=== PATIENT | male | born 1940 | race Caucasian/White ===

== ENCOUNTER → 2024-02-20 12:14 | Outpatient (REF) | payer MEDICARE, OTHER, SELFPAY ==
[2024-02-20 12:42] LABS: % Basophils 0.5 % (0-2); % Immature Granulocytes 0.3 % (0-0.5); % Lymphocytes 18.3 % (20.5-51.1); % Monocytes 7.7 % (1.7-9.3); % Neutrophils 70.2 % (42.2-75.2); Absolute Eosinophils 0.3 10^3/uL (0-0.7); Absolute Lymphocytes 1.6 10^3/uL (1.2-3.4); Absolute Monocytes 0.7 10^3/uL (0.1-0.6); Absolute Neutrophils 6.2 10^3/uL (1.4-6.5); Hematocrit 36.6 % (39.0-52.0); Hemoglobin 12.3 g/dL (13.0-18.0); Mean Corp Hgb Conc. 33.6 g/dL (33.0-37.0); Mean Corpuscular Hgb 32.8 pg (27.0-31.0); Mean Corpuscular Volume 97.6 fL (80.0-94.0); Nucleated Red Blood Cells % 0 % (-); Platelet Count 110 10^3/uL (130-400); Red Blood Cell Count 3.75 10^6/uL (4.70-6.10); Red Cell Dist. Width 12.3 % (11.5-14.5); White Blood Cell Count 8.8 10^3/uL (4.8-10.8)
[2024-02-20 12:52] LABS: Blood Urea Nitrogen 19 mg/dl (9-20); Calcium 8.9 mg/dl (8.4-10.2); Carbon Dioxide 26 mmol/L (22-30); Chloride 103 mmol/L (98-107); Glucose 203 mg/dl (70-99); Sodium 137 mmol/L (135-145); eGFR > 60.00
== END ==
LOC: OLABN 12:14
PROVIDERS: ATTENDING PHYSICIAN Student in an Organized Health Care Education/Training Program
DX: K62.5 Hemorrhage of anus and rectum (principal)
CPT/HCPCS: 36415; 80048; 85025

== ENCOUNTER → 2024-02-23 10:53 | Outpatient (REF) | payer MEDICARE, OTHER, SELFPAY ==
[2024-02-23 11:23] LABS: HDL Cholesterol 47 mg/dl; LDL Cholesterol, Calculated 47 mg/dl; Total Cholesterol 111 mg/dl (50-199); Triglyceride 87 mg/dl (10-149); Very Low Density Lipoprotein 17 mg/dl (0-30)
== END ==
LOC: OLABN 10:53
PROVIDERS: ATTENDING PHYSICIAN Student in an Organized Health Care Education/Training Program
DX: E78.5 Hyperlipidemia, unspecified (principal)
CPT/HCPCS: 36415; 80061

== ENCOUNTER 2024-02-25 11:20 | Emergency (ER) | payer MEDICARE, OTHER, SELFPAY ==
[2024-02-25] VITALS (8 sets, daily range): BP systolic 109–169; BP diastolic 55–88; BMI 41.4
[2024-02-25 11:45] LABS: % Basophils 0.3 % (0-2); % Eosinophils 2.8 % (0-6); % Immature Granulocytes 0.3 % (0-0.5); % Lymphocytes 27.7 % (20.5-51.1); % Monocytes 8.4 % (1.7-9.3); % Neutrophils 60.5 % (42.2-75.2); Absolute Eosinophils 0.2 10^3/uL (0-0.7); Absolute Lymphocytes 1.9 10^3/uL (1.2-3.4); Absolute Monocytes 0.6 10^3/uL (0.1-0.6); Absolute Neutrophils 4.1 10^3/uL (1.4-6.5); Hematocrit 38.6 % (39.0-52.0); Hemoglobin 13.3 g/dL (13.0-18.0); Mean Corp Hgb Conc. 34.5 g/dL (33.0-37.0); Mean Corpuscular Hgb 32.7 pg (27.0-31.0); Mean Corpuscular Volume 94.8 fL (80.0-94.0); Mean Platelet Volume 9.8 fL (7.4-10.4); Nucleated Red Blood Cells % 0 % (-); Platelet Count 131 10^3/uL (130-400); Red Blood Cell Count 4.07 10^6/uL (4.70-6.10); Red Cell Dist. Width 12.1 % (11.5-14.5); White Blood Cell Count 6.8 10^3/uL (4.8-10.8)
[2024-02-25 11:49] LABS: INR 1.35; PT 16.8 Sec (11.4-14.6)
[2024-02-25 11:50] LABS: APTT 34.5 Sec (23.4-35.0)
[2024-02-25 11:58] LABS: Troponin I < 0.012 ng/ml
[2024-02-25 12:04] LABS: Blood Urea Nitrogen 26 mg/dl (9-20); Calcium 9.1 mg/dl (8.4-10.2); Carbon Dioxide 27 mmol/L (22-30); Chloride 103 mmol/L (98-107); Estimated Creatinine Clearance 74 ml/min; Glucose 185 mg/dl (70-99); Sodium 139 mmol/L (135-145); eGFR > 60.00
[2024-02-25] MEDS: DUONEB 3 ML INH (13:12)
--- NOTE | 2024-02-25 13:13 | ED.GENMED ---
History of Present Illness
General
Chief Complaint: Chest Pain
Time Seen by Provider: 02/25/24 12:14
History of Present Illness
History of Present Illness:
83-year-old male with history of paroxysmal A-fib, hyperlipidemia, CAD, diabetes, hypertension, hyperlipidemia presenting to the emergency department for chest pain. Patient reports left-sided chest pain, feels in the left back. Notes that he woke
up around 2 AM with it. At the nursing facility where he resides he was given aspirin and nitroglycerin. Notes that his symptoms however improved after deep breathing exercises. Denies cough or fever. He notes that he currently does not have
pain. Denies abdominal pain or GI symptoms. Patient is very hard of hearing, relatively difficult historian. No additional symptoms obtained at this time.
Past History
Past History
ED Past Medical History: CAD, HTN, Hypercholesterolemia, IDDM and Other (Arthritis, Bilateral hearing aids. Vertigo)
ED Past Surgical History: Cardiac (Stents)
Patient has exhibited threatening behavior?: No
PSI?: No
Social History
Tobacco: Former smoker
Alcohol: Occasional
Personal:
Living: with family
Employment: Retired
Family History
Family History: Other (Mother with thyroid cancer, father with throat cancer)
Phy Exam
Physical Exam
Physical Exam:
General: Well-appearing, no clinical signs of dehydration, nontoxic and in no acute distress
HEENT: protecting airway
Neck: appears supple
CV: Normal heart rate, regular rhythm, no evidence of cyanosis
Resp: No accessory muscle use, no increased work of breathing, mild rhonchorous lung sounds bilaterally
Abd: Soft and non-distended, no tenderness to palpation
Extremities: No deformities, no swelling, no erythema. Chronic skin findings to the left lower extremity
Neuro: alert, no focal neurologic deficit
: deferred
Rectal: deferred
Psych: Normal affect
Skin: Intact
Scores
Heart Score for Chest Pain Patients
STEMI patient?: No
History: Slightly or Non-Suspicious
ECG: Normal
Age: >/= 65 years
Risk Factors: 1 or 2 Risk Factors
Troponin: </= Normal Limit
Heart Score for Chest Pain Patients: 3
Heart Score Risk: 2.5% MACE over next 6 weeks
Course
Orders/Labs/Results
Orders:
Orders
02/25/24 11:23
Electrocardiogram (*1) Urgent
Reason for Study: Chest Pain
02/25/24 11:24
EKG- Treatment ONCE
02/25/24 11:25
Basic Metabolic Panel Urgent
Complete Blood Count/With Diff Urgent
PT/INR [Prothrombin Time] Urgent
PTT Urgent
Troponin I Urgent
02/25/24 12:26
CR Chest - 2 Views Urgent
Comment:
Reason For Exam: SOB
02/25/24 12:27
Ipratropium/Albuterol Sulfate [Duoneb] 3 ml INH R NOW ONE
Abnormal Lab Results
02/25/24
11:25
RBC 4.07 L 10^6/uL
(4.70-6.10)
Hct 38.6 L %
(39.0-52.0)
MCV 94.8 H fL
(80.0-94.0)
MCH 32.7 H pg
(27.0-31.0)
PT 16.8 H Sec
(11.4-14.6)
BUN 26 H mg/dl
(9-20)
Glucose 185 H mg/dl
(70-99)
02/25/24 11:25
02/25/24 11:25
Vital Signs
Initial and Last Documented VS:
Initial Vital Signs
Pulse Resp Pulse Ox
74 20 98
02/25/24 11:25 02/25/24 11:25 02/25/24 11:25
Last Documented Vital Signs
Temp Pulse Resp BP Pulse Ox
97.8 F 73 18 144/77 98
02/25/24 11:33 02/25/24 12:40 02/25/24 12:40 02/25/24 13:14 02/25/24 13:15
MDM/Problems Addressed
MDM/Problems Addressed:
83-year-old male with history of paroxysmal A-fib, hyperlipidemia, CAD, diabetes, hypertension, hyperlipidemia presenting for left-sided chest pain. Vital signs on arrival are normal.
On exam patient is resting comfortably, no acute distress or discomfort. EKG obtained on arrival, nonischemic. Patient notes pain improved with deep breathing exercises. For this reason lower suspicion for cardiac etiology. Patient does have
some rhonchorous breath sounds, so we will obtain chest x-ray imaging. Will administer DuoNeb. Will continue to monitor and reassess for improvement.
14:50 -patient's labs are unremarkable. Chest x-ray without acute cardiopulmonary disease. Patient notes that he is not presently having any symptoms. He notes chronically a pain to the left side of his chest, made better with deep inspiration.
At this time feel that he is stable for discharge, however with close interval follow-up with his doctor. Return precautions discussed and patient verbalized understanding
*EKG
Interpreted by ED Provider?: Yes
EKG Intrepretation Date: 02/25/24
EKG Intrepretation Time: 13:16
Interpretation: normal
Comparison EKG: no changes (07/27/22)
Heart Rate: 74
Rate: normal
Rhythm: sinus
Olla: normal axis
Interval: normal interval
QRS Pattern: normal QRS
Ischemia: no ischemia
*Critical Care Note
Total Time (30-74mins, 75-104mins- exclusive of procedures): Not Applicable
ED Attending Note
-
Portions of this chart may have been created with voice recognition software.� Occasional wrong word or��sound alike� substitutions may have occurred due to the inherent limitations of voice recognition software.
Discharge Plan
Departure
Patient Disposition: Home (Routine Discharge)
Date of Disposition: 02/25/24
Time of Disposition: 14:59
Patient with high blood pressure during this ER visit?: No
Condition: Good
Discharge Problem:
Chest wall pain
Instructions: Chest pain - Discharge instructions
Prescriptions:
No Action
tamsulosin 0.4 MG capsule
0.4 mg PO BID@0830,1829
atorvastatin 40 MG tablet
40 mg PO DAILY@1829
metoprolol succinate 25 MG tablet extended release 24 hr
25 mg PO DAILY
quetiapine 25 mg Tablet
12.5 mg PO DAILY
lidocaine 4 % Adhesive Patch,Medicated
1 patch TOPICAL DAILY
Rx Instructions:
apply to left lateral anterior knee
trazodone 50 mg tablet
25 mg PO DAILY@1829
magnesium hydroxide [Milk of Magnesia] 400 mg/5 mL Suspension
30 ml PO HS PRN (Reason: lack of bm)
insulin aspart U-100 100 unit/mL Solution
0 - 12 sliding scale dose SC AC
Rx Instructions:
71-150 = 0 units, 151-200= 2 units, 201-250= 4 units, 251-300= 6 units, 301-350= 8 units, 351-400= 10 units, >400= 12 units call MD
insulin aspart U-100 100 unit/mL Solution
32 unit SC BID@829,2029
bisacodyl [Dulcolax (bisacodyl)] 10 mg Suppository
10 mg [place] DAILY PRN (Reason: when no bm/mom ineffective)
escitalopram oxalate 20 mg tablet
20 mg PO DAILY
diclofenac sodium 1 % gel
2 g TOPICAL Q8H
Rx Instructions:
0000, 0800,1600. apply to left anterior lateral knee areas
cholecalciferol (vitamin D3) [Vitamin D3] 125 mcg (5,000 unit) Tablet
1,500 mcg PO MONTHLY
Rx Instructions:
3rd fri
acetaminophen 325 MG tablet
650 mg PO Q4H PRN (Reason: mild pain/temp> 100.4F)
famotidine 20 MG tablet
20 mg PO BID@
glimepiride 4 MG tablet
4 mg PO DAILY
Rx Instructions:
HOLD UNTIL PATIENT'S APPETITE IS BACK
albuterol sulfate 1 PUFF HFA aerosol inhaler
2 puff inhalation R Q4 PRN (Reason: sob)
Eliquis 5 MG tablet
5 mg PO BID@
pantoprazole 40 mg Tablet,Delayed Release (Dr/Ec)
40 mg PO HS Qty: 0 0RF
miconazole nitrate [Miconazorb AF] 2 % Powder
1 applic topical BID Qty: 0 0RF
prednisone 10 mg Tablet
See Rx Instructions .ROUTE .COMPLEX Qty: 30 0RF
Rx Instructions:
Take By Mouth:
30 mg daily x2 days,
20 mg daily x2 days, 10 mg daily x2 days.
Referrals:
Jeffry Yang DO [Family Provider] -
Activity Restrictions/Additional Instructions:
You were seen in the emergency department for chest pain
You were found to have normal laboratory analysis and chest x-ray imaging.
Please follow-up closely with your primary care physician.
Return to the emergency department for any worsening of your symptoms, or any development of chest pain, difficulty breathing, abdominal pain with persistent vomiting and inability to tolerate food or liquid by mouth (concern for dehydration),
weakness, headache or confusion, fever greater than 100.4, or any additional symptoms that are concerning to you.
Thank you for choosing [facility].
Interventions
Interventions:
*Risk Screen - Suicide Last Done: 02/25/24 11:33
*General Assessment Last Done: 02/25/24 11:33
*Neglect/Abuse Screening Last Done: 02/25/24 11:33
*ED COVID-19 Vaccine History Last Done: 02/25/24 11:41
ED- Cardiac Assessment Last Done: 02/25/24 11:42
Discharge Date and Time
Print Language: CENTRAL AFRICAN
== END 2024-02-25 18:15 | disposition home or self-care (01) ==
LOC: EMR 11:20
PROVIDERS: EMERGENCY PHYSICIAN Student in an Organized Health Care Education/Training Program; FAMILY PHYSICIAN Student in an Organized Health Care Education/Training Program
DX: R07.89 Other chest pain (principal); E78.00 Pure hypercholesterolemia, unspecified; E11.9 Type 2 diabetes mellitus without complications; I10 Essential (primary) hypertension; I25.10 Atherosclerotic heart disease of native coronary artery without angina pectoris; I48.0 Paroxysmal atrial fibrillation; Z79.4 Long term (current) use of insulin; Z87.891 Personal history of nicotine dependence; Z95.5 Presence of coronary angioplasty implant and graft
CPT/HCPCS: 94640; 99285; 71046; 80048; 84484; 85025; 85610; 85730; 93005

== ENCOUNTER → 2024-02-27 11:24 | Outpatient (REF) | payer MEDICARE, OTHER, SELFPAY ==
[2024-02-27 12:24] LABS: Urine Albumin Negative (Neg - Trace); Urine Bilirubin Negative (Negative); Urine Character Clear (Clear); Urine Color Yellow; Urine Glucose 3+ (Negative); Urine Ketone Negative (Negative); Urine Leukocyte Negative (Negative); Urine Nitrite Negative (Negative); Urine Occult Blood Negative (Negative); Urine Specific Gravity 1.015 (<1.030); Urine Urobilinogen Negative (Neg - 1+)
== END ==
LOC: OLABN 11:24
PROVIDERS: ATTENDING PHYSICIAN Student in an Organized Health Care Education/Training Program
DX: M62.81 Muscle weakness (generalized) (principal); R50.9 Fever, unspecified
CPT/HCPCS: 81003; 87086

== ENCOUNTER 2024-05-04 15:28 | Emergency (ER) | payer MEDICARE, OTHER, SELFPAY ==
[2024-05-04 16:00] VITALS: BP 126/81
[2024-05-04 16:06] VITALS: BP 126/81
[2024-05-04 16:13] LABS: % Basophils 0.3 % (0-2); % Lymphocytes 15.1 % (20.5-51.1); % Neutrophils 74.6 % (42.2-75.2); Absolute Eosinophils 0.1 10^3/uL (0-0.7); Absolute Immature Granulocytes 0.1 10^3/uL (0-0.05); Absolute Lymphocytes 1.4 10^3/uL (1.2-3.4); Absolute Monocytes 0.7 10^3/uL (0.1-0.6); Absolute Neutrophils 6.8 10^3/uL (1.4-6.5); Hematocrit 39.9 % (39.0-52.0); Hemoglobin 13.3 g/dL (13.0-18.0); Mean Corp Hgb Conc. 33.3 g/dL (33.0-37.0); Mean Corpuscular Hgb 32.2 pg (27.0-31.0); Mean Corpuscular Volume 96.6 fL (80.0-94.0); Mean Platelet Volume 10.8 fL (7.4-10.4); Nucleated Red Blood Cells % 0 % (-); Platelet Count 129 10^3/uL (130-400); Red Blood Cell Count 4.13 10^6/uL (4.70-6.10); Red Cell Dist. Width 12.4 % (11.5-14.5); White Blood Cell Count 9.2 10^3/uL (4.8-10.8)
--- NOTE | 2024-05-04 17:23 | ED.GENMED ---
History of Present Illness
General
Chief Complaint: Change Level of Consciousness
Time Seen by Provider: 05/04/24 15:31
History of Present Illness
History of Present Illness:
83-year-old male presents to the emergency department from [facility] due to a brief period of unresponsiveness that occurred earlier today. Staff had difficulty arousing him for several minutes. Upon arousing him they administered oxygen and
Gave him orange juice. No documented hypoglycemia was noted. On arrival the patient is confused about why he is here, states he feels fine. He is alert and oriented x 3 with significant hearing deficit at baseline.
Past History
Past History
ED Past Medical History: CAD, HTN, Hypercholesterolemia, IDDM and Other (Arthritis, Bilateral hearing aids. Vertigo)
ED Past Surgical History: Cardiac (Stents)
Patient has exhibited threatening behavior?: No
PSI?: No
Social History
Tobacco: Former smoker
Alcohol: Occasional
Personal:
Living: with family
Employment: Retired
Family History
Family History: Other (Mother with thyroid cancer, father with throat cancer)
Review of Systems
Review of Systems
Allergies reviewed?: Yes
All Other Systems: ROS reviewed and negative except as documented in HPI and ROS
Phy Exam
Physical Exam
Physical Exam:
GEN: Well appearing, NAD, WDWN
HEENT: Oral mucosa moist, no scleral icterus
Cardiac: Regular rate and rhythm, no murmurs
Lung: No respiratory distress, no tachypnea, lungs clear to auscultation bilaterally
MSK: No gross deformity or injuries
Skin: Good color, no pallor or jaundice, no rashes
Neuro: AO x3, moves all extremities freely
Psych: Calm, cooperative
Course
Orders/Labs/Results
Orders:
Orders
05/04/24 15:40
CR Chest - 2 Views Urgent
Comment:
Reason For Exam: brief now resolved unresponsiveness
05/04/24 15:54
Complete Blood Count/With Diff Urgent
05/04/24 17:07
Comprehensive Metabolic Panel Urgent
Abnormal Lab Results
05/04/24 05/04/24 05/04/24
15:54 17:07 19:12
RBC 4.13 L 10^6/uL
(4.70-6.10)
MCV 96.6 H fL
(80.0-94.0)
MCH 32.2 H pg
(27.0-31.0)
Plt Count 129 L 10^3/uL
(130-400)
MPV 10.8 H fL
(7.4-10.4)
Abs Immat Gran (auto) 0.1 H 10^3/uL
(0-0.05)
Absolute Neuts (auto) 6.8 H 10^3/uL
(1.4-6.5)
Absolute Monos (auto) 0.7 H 10^3/uL
(0.1-0.6)
Immature Gran % 1.0 H %
(0-0.5)
Lymphocytes % 15.1 L %
(20.5-51.1)
Carbon Dioxide 32 H mmol/L
(22-30)
BUN 29 H mg/dl
(9-20)
POC Glucose 192 H mg/dl
(70-99)
05/04/24 15:54
05/04/24 17:07
Vital Signs
Initial and Last Documented VS:
Initial Vital Signs
Pulse Resp BP Pulse Ox
63 19 126/81 98
05/04/24 16:00 05/04/24 16:00 05/04/24 16:00 05/04/24 16:00
Last Documented Vital Signs
Temp Pulse Resp BP Pulse Ox
97.4 F 60 15 126/81 98
05/04/24 16:06 05/04/24 18:00 05/04/24 17:30 05/04/24 16:06 05/04/24 18:00
MDM/Problems Addressed
MDM/Problems Addressed:
Labs reassuring in the emergency department, patient remained at his normal mental status throughout emergency department stay. Unclear etiology, device interrogated through [employer] and no cardiac events were noted today to explain his brief
unresponsiveness.
*Critical Care Note
Total Time (30-74mins, 75-104mins- exclusive of procedures): Not Applicable
ED Attending Note
-
Portions of this chart may have been created with voice recognition software.� Occasional wrong word or��sound alike� substitutions may have occurred due to the inherent limitations of voice recognition software.
Discharge Plan
Departure
Patient Disposition: Home (Routine Discharge)
Date of Disposition: 05/04/24
Time of Disposition: 17:36
Patient with high blood pressure during this ER visit?: No
Discharge Problem:
Episode of unresponsiveness
Instructions: Syncope (Fainting) (DC)
Prescriptions:
No Action
tamsulosin 0.4 MG capsule
0.8 mg PO QPM
atorvastatin 40 MG tablet
40 mg PO DAILY@1830
metoprolol succinate 25 MG tablet extended release 24 hr
25 mg PO DAILY
magnesium hydroxide [Milk of Magnesia] 400 mg/5 mL Suspension
30 ml PO HSPRN PRN (Reason: lack of bm)
bisacodyl [Dulcolax (bisacodyl)] 10 mg Suppository
10 mg [place] DAILYPRN PRN (Reason: when no bm/mom ineffective)
acetaminophen 325 MG tablet
650 mg PO Q4HPRN PRN (Reason: mild pain/temp> 100.4F)
famotidine 20 MG tablet
20 mg PO HS
albuterol sulfate 1 PUFF HFA aerosol inhaler
2 puff inhalation R Q4HPRN PRN (Reason: sob)
Eliquis 5 MG tablet
5 mg PO BID@0830,1830
metformin 500 mg Tablet
500 mg PO BID
glimepiride 2 mg Tablet
2 mg PO DAILY
escitalopram oxalate 10 mg Tablet
10 mg PO DAILY
cholecalciferol (vitamin D3) 250 mcg (10,000 unit) Tablet
1,500 mcg PO QMONTH
Rx Instructions:
3rd wed
Fiasp FlexTouch U-100 Insulin 100 unit/mL (3 mL) Insulin Pen
26 unit SC DAILY
Fiasp FlexTouch U-100 Insulin 100 unit/mL (3 mL) Insulin Pen
1 sliding scale dose SC TID
Rx Instructions:
151-200=2u,201-250=4u,251-300=6u,301-350=8u,351-400=10u,>400=12u
Fiasp FlexTouch U-100 Insulin 100 unit/mL (3 mL) Insulin Pen
22 unit SC HS
Referrals:
Jeffry Yang DO [Family Provider] -
Activity Restrictions/Additional Instructions:
The cause of Mr Gray's episode is not clear
Please return to the ER with any further concerns
Interventions
Interventions:
*Risk Screen - Suicide Last Done: 05/04/24 16:12
*General Assessment Last Done: 05/04/24 16:12
*Neglect/Abuse Screening Last Done: 05/04/24 16:12
*ED COVID-19 Vaccine History Last Done: 05/04/24 16:12
*Nursing Disposition Last Done: 05/04/24 19:42
ED- Cardiac Assessment Last Done: 05/04/24 17:30
ED- Neurological Assessment Last Done: 05/04/24 17:28
ED-Psychological Assessment Last Done: 05/04/24 17:29
ED- Pulmonary Assessment Last Done: 05/04/24 17:28
Discharge Date and Time
Discharge Date/Time: 05/04/24 19:43
Print Language: LITHUANIAN
[2024-05-04 17:32] LABS: ALT (SGPT) 14 U/L (0-50); AST (SGOT) 19 U/L (17-59); Albumin 3.7 g/dl (3.5-5.0); Alkaline Phosphatase 81 U/L (38-126); Blood Urea Nitrogen 29 mg/dl (9-20); Calcium 9.5 mg/dl (8.4-10.2); Carbon Dioxide 32 mmol/L (22-30); Chloride 98 mmol/L (98-107); Glucose 81 mg/dl (70-99); Potassium 4.4 mmol/L (3.5-5.1); Sodium 136 mmol/L (135-145); Total Bilirubin 0.6 mg/dl (0.2-1.3); Total Protein 6.4 g/dl (6.3-8.2); eGFR > 60.00
[2024-05-04 17:44] LABS: Glucose - Point of Care 80 mg/dl (70-99)
[2024-05-04 19:14] LABS: Glucose - Point of Care 192 mg/dl (70-99)
== END 2024-05-04 19:43 | disposition home or self-care (01) ==
LOC: EMR 15:28
PROVIDERS: Physician Assistant; EMERGENCY PHYSICIAN Emergency Medicine; FAMILY PHYSICIAN Student in an Organized Health Care Education/Training Program
DX: R55 Syncope and collapse (principal); I25.10 Atherosclerotic heart disease of native coronary artery without angina pectoris; I10 Essential (primary) hypertension; E78.00 Pure hypercholesterolemia, unspecified; E11.9 Type 2 diabetes mellitus without complications; Z79.4 Long term (current) use of insulin; Z87.891 Personal history of nicotine dependence; Z95.5 Presence of coronary angioplasty implant and graft
CPT/HCPCS: 99284; 71046; 80053; 82962; 85025

== ENCOUNTER → 2024-07-27 12:05 | Outpatient (REF) | payer MEDICARE, OTHER, SELFPAY ==
[2024-07-27 12:53] LABS: Glycohemoglobin (HgbA1c) 8.6 % (4.0-5.6)
== END ==
LOC: OLABN 12:05
PROVIDERS: ATTENDING PHYSICIAN Student in an Organized Health Care Education/Training Program
DX: E11.9 Type 2 diabetes mellitus without complications (principal)
CPT/HCPCS: 36415; 83036

== ENCOUNTER → 2024-08-03 10:37 | Outpatient (REF) | payer MEDICARE, OTHER, SELFPAY ==
[2024-08-03 11:36] LABS: HDL Cholesterol 43 mg/dl; LDL Cholesterol, Calculated 37 mg/dl; Total Cholesterol 93 mg/dl (50-199); Triglyceride 67 mg/dl (10-149); Very Low Density Lipoprotein 13 mg/dl (0-30)
== END ==
LOC: OLABN 10:37
PROVIDERS: ATTENDING PHYSICIAN Student in an Organized Health Care Education/Training Program
DX: E11.9 Type 2 diabetes mellitus without complications (principal)
CPT/HCPCS: 36415; 80061

== ENCOUNTER 2024-08-18 17:58 | Emergency (ER) | payer MEDICARE, OTHER, SELFPAY ==
[2024-08-18 18:03] VITALS: BP 110/64
--- NOTE | 2024-08-18 18:22 | ED.GENMED ---
History of Present Illness
General
Chief Complaint: Breathing Problem
Source: patient
Exam Limitations: none
Time Seen by Provider: 08/18/24 18:18
History of Present Illness
History of Present Illness:
See MDM
Past History
Past History
ED Past Medical History: CAD, HTN, Hypercholesterolemia, IDDM and Other (Arthritis, Bilateral hearing aids. Vertigo)
ED Past Surgical History: Cardiac (Stents)
Patient has exhibited threatening behavior?: No
PSI?: No
Social History
Tobacco: Former smoker
Alcohol: Occasional
Personal:
Living: with family
Employment: Retired
Family History
Family History: Other (Mother with thyroid cancer, father with throat cancer)
Phy Exam
Physical Exam
Physical Exam:
See MDM
Scores
Heart Failure Risk
Heart Failure Risk Score: Not Applicable
Course
Orders/Labs/Results
Orders:
Orders
08/18/24 18:05
Electrocardiogram (*1) Urgent
Reason for Study: Shortness of Breath
CR Chest Portable - 1 View Urgent
Comment:
Reason For Exam: SOB
Reason Study Needs to be Portable: Patient Unstable
08/18/24 18:06
EKG- Treatment ONCE
08/18/24 18:07
COVID-19 Antigen Urgent
Source: Nasal Swab
Complete Blood Count/With Diff Urgent
Comprehensive Metabolic Panel Urgent
NT-proBNP Urgent
Troponin I Urgent
08/18/24 18:11
Influenza A+B Rapid Molecular Urgent
GULSHAN Source: Nasal Swab
Specimen Description:
Abnormal Lab Results
08/18/24
18:07
RBC 4.31 L 10^6/uL
(4.70-6.10)
MCV 98.6 H fL
(80.0-94.0)
MCH 32.7 H pg
(27.0-31.0)
Absolute Lymphs (auto) 4.0 H 10^3/uL
(1.2-3.4)
Absolute Monos (auto) 0.9 H 10^3/uL
(0.1-0.6)
Glucose 147 H mg/dl
(70-99)
08/18/24 18:07
08/18/24 18:07
Vital Signs
Initial and Last Documented VS:
Initial Vital Signs
Temp Pulse Resp Pulse Ox
98.0 F 84 30 99
08/18/24 18:00 08/18/24 18:00 08/18/24 18:00 08/18/24 18:00
Last Documented Vital Signs
Temp Pulse Resp BP Pulse Ox
98.0 F 83 17 142/79 96
08/18/24 18:00 08/18/24 19:45 08/18/24 19:45 08/18/24 19:00 08/18/24 19:45
MDM/Problems Addressed
Differential Diagnosis Includes:
HPI and MDM Narrative:
83-year-old male presenting for evaluation of shortness of breath. He does admit that he has a somewhat chronic wheeze but apparently it came on suddenly earlier today. He required 2 DuoNeb's by EMS and was given IV Solu-Medrol prior to arrival.
Patient was placed on 4 L nasal cannula. Patient does acknowledge he is feeling somewhat better but he has significant amount of wheezing. Will obtain chest x-ray and viral testing
Physical exam
General: Well appearing and non-toxic
HEENT: protecting airway
Neck: appears supple
CV: No evidence of cyanosis. Regular rate and rhythm
Resp: No accessory muscle use. Significant amount of expiratory wheezing throughout
Abd: Non-distended
Extremities: No pitting edema in lower extremities
Neuro: alert
Psych: Normal affect
Skin: Intact
Problems Addressed including Acute and Chronic Conditions affecting care:
1. Wheezing
Acuity: acute
Prognosis: stable
Details: Symptoms improving with DuoNebs and IV steroids. Will obtain chest x-ray
Updates
Chest x-ray clear and wheezing continues to diminish. I did offer admission. Patient does understand my concerns but states he would rather go home and understands risks involved. Patient was taken off of oxygen and pulse ox stable at 95 to 96%.
Will write for steroid and inhaler
Differential Diagnosis (but not limited to): Bronchitis, pneumonia, viral syndrome, congestive heart failure
Testing considered: D-dimer but patient appears to be on Eliquis
Drug therapy (if applicable): OTC meds, please see d/c instruction regarding Rx drugs
Amount and/or Complexity of Data Reviewed
Clinical info obtained from: Patient
External data reviewed: N/A
Labs I independently reviewed (but not limited to): Troponin negative
Radiology: X-ray independently reviewed: Chest x-ray clear
Pulse Ox: not hypoxic
EKG independently reviewed: Sinus rhythm, normal axis, no STEMI
Clinical Rehabilitation Liaison: Sinus rhythm
Critical Care: N/A
Risk of Complication:
Social Determinants of health: Good social support
Discussed with other providers: N/A
Escalation of Care includes Admit/Obs: Patient requesting discharge
Occasional wrong word or 'sound a like' substitutions may have occurred due to the inherent limitations of voice recognition software. Read the chart carefully and recognize, using context, where substitutions have occurred.
*Critical Care Note
Total Time (30-74mins, 75-104mins- exclusive of procedures): Not Applicable
ED Attending Note
-
Portions of this chart may have been created with voice recognition software.� Occasional wrong word or��sound alike� substitutions may have occurred due to the inherent limitations of voice recognition software.
Discharge Plan
Departure
Patient Disposition: Home (Routine Discharge)
Date of Disposition: 08/18/24
Time of Disposition: 20:03
Patient with high blood pressure during this ER visit?: No
Discharge Problem:
Bronchitis
Instructions: Acute Bronchitis, Adult (DC)
Prescriptions:
New
prednisone 10 mg tablet
See Rx Instructions .ROUTE .COMPLEX Qty: 45 0RF
Rx Instructions:
5 tabs day 1-3, 4 tabs day 4-6, 3 tabs day 7-9, 2 tabs day 10-12, 1 tab day 13-15
albuterol sulfate 90 mcg/actuation HFA aerosol inhaler
2 puff inhalation Q6H PRN (Reason: shortness of breath or wheezing) Qty: 8.5 0RF
No Action
tamsulosin 0.4 MG capsule
0.8 mg PO QPM
atorvastatin 40 MG tablet
40 mg PO DAILY@1829
metoprolol succinate 25 MG tablet extended release 24 hr
25 mg PO DAILY
magnesium hydroxide [Milk of Magnesia] 400 mg/5 mL Suspension
30 ml PO HSPRN PRN (Reason: lack of bm)
bisacodyl [Dulcolax (bisacodyl)] 10 mg Suppository
10 mg [place] DAILYPRN PRN (Reason: when no bm/mom ineffective)
acetaminophen 325 MG tablet
650 mg PO Q4HPRN PRN (Reason: mild pain/temp> 100.4F)
famotidine 20 MG tablet
20 mg PO HS
albuterol sulfate 1 PUFF HFA aerosol inhaler
2 puff inhalation R Q4HPRN PRN (Reason: sob)
Eliquis 5 MG tablet
5 mg PO BID@829,1829
metformin 500 mg Tablet
500 mg PO BID
glimepiride 2 mg Tablet
2 mg PO DAILY
escitalopram oxalate 10 mg Tablet
10 mg PO DAILY
cholecalciferol (vitamin D3) 250 mcg (10,000 unit) Tablet
1,500 mcg PO QMONTH
Rx Instructions:
3rd wed
Fiasp FlexTouch U-100 Insulin 100 unit/mL (3 mL) Insulin Pen
26 unit SC DAILY
Fiasp FlexTouch U-100 Insulin 100 unit/mL (3 mL) Insulin Pen
1 sliding scale dose SC TID
Rx Instructions:
151-200=2u,201-250=4u,251-300=6u,301-350=8u,351-400=10u,>400=12u
Fiasp FlexTouch U-100 Insulin 100 unit/mL (3 mL) Insulin Pen
22 unit SC HS
Referrals:
Jeffry Yang DO [Family Provider] -
Activity Restrictions/Additional Instructions:
Please return for any worsening symptoms.
You may return at any time if you have further concerns.
Please follow up with your doctor at the first available appointment, preferably this week.
Thank you for choosing [facility].
Interventions
Interventions:
*General Assessment Last Done: 08/18/24 18:00
ED- Cardiac Assessment Last Done: 08/18/24 19:01
ED- Pulmonary Assessment Last Done: 08/18/24 19:01
Discharge Date and Time
Print Language: BELARUSIAN
[2024-08-18 18:28] LABS: % Basophils 0.4 % (0-2); % Eosinophils 4.4 % (0-6); % Immature Granulocytes 0.3 % (0-0.5); % Lymphocytes 38.4 % (20.5-51.1); % Neutrophils 47.5 % (42.2-75.2); Absolute Eosinophils 0.5 10^3/uL (0-0.7); Absolute Monocytes 0.9 10^3/uL (0.1-0.6); Absolute Neutrophils 4.9 10^3/uL (1.4-6.5); Hematocrit 42.5 % (39.0-52.0); Hemoglobin 14.1 g/dL (13.0-18.0); Mean Corp Hgb Conc. 33.2 g/dL (33.0-37.0); Mean Corpuscular Hgb 32.7 pg (27.0-31.0); Mean Corpuscular Volume 98.6 fL (80.0-94.0); Mean Platelet Volume 9.5 fL (7.4-10.4); Nucleated Red Blood Cells % 0 % (-); Platelet Count 142 10^3/uL (130-400); Red Blood Cell Count 4.31 10^6/uL (4.70-6.10); Red Cell Dist. Width 12.2 % (11.5-14.5); White Blood Cell Count 10.4 10^3/uL (4.8-10.8)
[2024-08-18 18:57] LABS: ALT (SGPT) 14 U/L (0-50); AST (SGOT) 21 U/L (17-59); Albumin 3.9 g/dl (3.5-5.0); Alkaline Phosphatase 83 U/L (38-126); Blood Urea Nitrogen 19 mg/dl (9-20); Calcium 9.5 mg/dl (8.4-10.2); Carbon Dioxide 28 mmol/L (22-30); Chloride 103 mmol/L (98-107); Glucose 147 mg/dl (70-99); NT-proBNP 297 pg/ml; Potassium 5.1 mmol/L (3.5-5.1); Sodium 138 mmol/L (135-145); Total Bilirubin 0.8 mg/dl (0.2-1.3); Total Protein 6.5 g/dl (6.3-8.2); Troponin I < 0.012 ng/ml; eGFR > 60.00
[2024-08-18 19:00] VITALS: BP 142/79
[2024-08-18 19:16] LABS: COVID-19 Antigen Negative (Negative)
[2024-08-18 20:00] VITALS: BP 156/93
== END 2024-08-18 21:42 | disposition home or self-care (01) ==
LOC: EMR 17:58
PROVIDERS: EMERGENCY PHYSICIAN Student in an Organized Health Care Education/Training Program; FAMILY PHYSICIAN Student in an Organized Health Care Education/Training Program
DX: J40 Bronchitis, not specified as acute or chronic (principal); I25.10 Atherosclerotic heart disease of native coronary artery without angina pectoris; I10 Essential (primary) hypertension; E78.00 Pure hypercholesterolemia, unspecified; E11.9 Type 2 diabetes mellitus without complications; M19.90 Unspecified osteoarthritis, unspecified site; Z79.4 Long term (current) use of insulin; Z87.891 Personal history of nicotine dependence; Z95.5 Presence of coronary angioplasty implant and graft
CPT/HCPCS: 99283; 71045; 80053; 83880; 84484; 85025; 87502; 87811; 93005

== ENCOUNTER 2024-08-28 11:28 | Emergency (ER) | payer MEDICARE, OTHER, SELFPAY ==
[2024-08-28 11:29] VITALS: BP 114/76
--- NOTE | 2024-08-28 12:35 | ED.GENMED ---
History of Present Illness
General
Chief Complaint: Head Injury
Source: patient
Exam Limitations: none
Time Seen by Provider: 08/28/24 12:05
Nursing documentation reviewed up to this point in time: agreed with
History of Present Illness
History of Present Illness:
83-year-old male with a past medical history of coronary artery disease, insulin-dependent diabetes, skin cancer, hlp, presents to the ER today with concerns of frontal headache following a fall. Patient has ambulatory dysfunction and is wheel chair
bound at baseline. He comes from [facility]. Daughter reports that he is not supposed to use the bathroom alone and is supposed to have assistance at all times. Patient reports that he got up from his wheelchair to go to the bathroom
and when he got off of the toilet, he lost his footing and fell forward, hitting his head on the ground. Patient does take Eliquis. He did not loose consciousness.He denies any other injuries. He currently notes mild headache but denies nausea,
vomiting, chest pain, neck pain, shortness of breath, or pain in his extremeties.
Past History
Past History
ED Past Medical History: CAD, HTN, Hypercholesterolemia, IDDM and Other (Arthritis, Bilateral hearing aids. Vertigo)
ED Past Surgical History: Cardiac (Stents)
Patient has exhibited threatening behavior?: No
PSI?: No
Social History
Tobacco: Former smoker
Alcohol: Occasional
Personal:
Living: with family
Employment: Retired
Family History
Family History: Other (Mother with thyroid cancer, father with throat cancer)
Review of Systems
Review of Systems
All Other Systems: ROS reviewed and negative except as documented in HPI and ROS
Phy Exam
Physical Exam
Physical Exam:
General: Patient is well appearing and in no acute distress; non-toxic
Skin: Left frontal hematoma noted, no laceration or abrasion
Head: See above. TMJ joints intact bilaterally. No tenderness to palpation of the facial bones
Eyes: Sclera non-icteric. EOMs intact.
Neck: No tenderness to palpation of the cervical spine
Cardiac: Regular rate and rhythm, no murmurs
Peripheral Vascular: No lower extremity swelling or edema
Pulm: Normal respiratory effort, no wheezes, rales, or rhonchi
Abdomen: No abdominal tenderness to palpation
Musculoskeletal: No pain or tenderness to palpation in bilateral upper extremeties.
Neuro: CN II-XII intact, no focal neurologic deficits.
Psychiatric: Appropriate mood and affect.
Course
Orders/Labs/Results
Orders:
Orders
08/28/24 11:33
Electrocardiogram (*1) Urgent
Reason for Study: Other
Other Reason for Exam: fall
CT Head W/o Iv Contrast Urgent
Comment:
Reason For Exam: fall on thinner
08/28/24 11:34
EKG- Treatment ONCE
08/28/24 11:36
CT Cervical Spine W/o Iv Contr Urgent
Comment:
Reason For Exam: fall
Vital Signs
Initial and Last Documented VS:
Initial Vital Signs
Temp Pulse Resp BP Pulse Ox
98.2 F 79 20 114/76 98
08/28/24 11:29 08/28/24 11:29 08/28/24 11:29 08/28/24 11:29 08/28/24 11:29
Last Documented Vital Signs
Temp Pulse Resp BP Pulse Ox
98.2 F 72 18 120/74 98
08/28/24 11:29 08/28/24 14:01 08/28/24 14:01 08/28/24 14:01 08/28/24 14:01
MDM/Problems Addressed
Differential Diagnosis Includes:
Differentials include concussion, subdural hematoma, subarachnoid hemorrhage, contusion
MDM/Problems Addressed:
83-year-old male with a past medical history of coronary artery disease, insulin-dependent diabetes, skin cancer, hlp, presents to the ER today with concerns of frontal headache following a fall. He reports that he lost his footing when he got off
of the toilet. His CT scan is negative for acute intracranial abnormalities,and no evidene of cervical fracture. Patient stable for discharge.
Chronic conditions affecting care:
PAF, hyperlipidemia, ischemic cardiomyopathy, afib, DM
*Pulse Oximetry
Patient hypoxic: no
*Critical Care Note
Total Time (30-74mins, 75-104mins- exclusive of procedures): Not Applicable
Data Reviewed
Review of Other/Old Records Reveals: Records (reviewed ER documentation from 08/18/24 patient seen for shortness of breath diagnosed with bronchitis )
Source: patient and records
ED Attending Note
-
Portions of this chart may have been created with voice recognition software.� Occasional wrong word or��sound alike� substitutions may have occurred due to the inherent limitations of voice recognition software.
Discharge Plan
Departure
Patient Disposition: Home (Routine Discharge)
Date of Disposition: 08/28/24
Time of Disposition: 13:18
Patient with high blood pressure during this ER visit?: No
Condition: Good
Discharge Problem:
Head trauma, Fall
Instructions: Head Injury in Adults (DC), Preventing falls in adults
Prescriptions:
No Action
tamsulosin 0.4 MG capsule
0.8 mg PO QPM
atorvastatin 40 MG tablet
40 mg PO DAILY@1830
metoprolol succinate 25 MG tablet extended release 24 hr
25 mg PO DAILY
magnesium hydroxide [Milk of Magnesia] 400 mg/5 mL Suspension
30 ml PO HSPRN PRN (Reason: lack of bm)
bisacodyl [Dulcolax (bisacodyl)] 10 mg Suppository
10 mg RI DAILYPRN PRN (Reason: when no bm/mom ineffective)
acetaminophen 325 MG tablet
650 mg PO Q4HPRN PRN (Reason: mild pain/temp> 100.4F)
famotidine 20 MG tablet
20 mg PO HS
albuterol sulfate 1 PUFF HFA aerosol inhaler
2 puff inhalation R Q4HPRN PRN (Reason: sob)
Eliquis 5 MG tablet
5 mg PO BID@0830,1830
metformin 500 mg Tablet
500 mg PO BID
glimepiride 2 mg Tablet
2 mg PO DAILY
escitalopram oxalate 10 mg Tablet
10 mg PO DAILY
cholecalciferol (vitamin D3) 250 mcg (10,000 unit) Tablet
1,500 mcg PO QMONTH
Rx Instructions:
3rd fri
Fiasp FlexTouch U-100 Insulin 100 unit/mL (3 mL) Insulin Pen
26 unit SC DAILY
Fiasp FlexTouch U-100 Insulin 100 unit/mL (3 mL) Insulin Pen
1 sliding scale dose SC TID
Rx Instructions:
151-200=2u,201-250=4u,251-300=6u,301-350=8u,351-400=10u,>400=12u
Fiasp FlexTouch U-100 Insulin 100 unit/mL (3 mL) Insulin Pen
22 unit SC HS
prednisone 10 mg tablet
See Rx Instructions .ROUTE .COMPLEX Qty: 45 0RF
Rx Instructions:
5 tabs day 1-3, 4 tabs day 4-6, 3 tabs day 7-9, 2 tabs day 10-12, 1 tab day 13-15
albuterol sulfate 90 mcg/actuation HFA aerosol inhaler
2 puff inhalation Q6H PRN (Reason: shortness of breath or wheezing) Qty: 8.5 0RF
Referrals:
Jeffry Yang DO [Family Provider] -
Activity Restrictions/Additional Instructions:
Your CT scans of the cervical spine shows degenerative changes but no evidence of acute fracture, and your CAT scan of the head shows no acute intracranial abnormalities.
You can take Tylenol as needed should you have pain.
PLEASE RETURN EMERGENCY DEPARTMENT SHOULD YOU DEVELOP CHEST PAIN, SHORTNESS OF BREATH, HEADACHES, NAUSEA, VOMITING, DIZZINESS, LIGHTHEADEDNESS, ONE-SIDED BODY VERSUS OTHER, NUMBNESS OR TINGLING, OR ANY OTHER SIGNS OR SYMPTOMS WORRISOME TO YOU.
Interventions
Interventions:
*General Assessment Last Done: 08/28/24 11:29
*ED- Fall Risk Assessment Last Done: 08/28/24 12:59
*Nursing Disposition Last Done: 08/28/24 14:58
ED- Neurological Assessment Last Done: 08/28/24 12:59
ED-Skin Assessment Last Done: 08/28/24 12:59
Discharge Date and Time
Discharge Date/Time: 08/28/24 15:01
Print Language: SWEDISH
[2024-08-28 14:01] VITALS: BP 120/74
== END 2024-08-28 15:01 ==
LOC: EMR 11:28
PROVIDERS: EMERGENCY PHYSICIAN Emergency Medicine; FAMILY PHYSICIAN Student in an Organized Health Care Education/Training Program
DX: S00.83XA Contusion of other part of head, initial encounter (principal); W18.12XA Fall from or off toilet with subsequent striking against object, initial encounter; I25.10 Atherosclerotic heart disease of native coronary artery without angina pectoris; E11.9 Type 2 diabetes mellitus without complications; E78.00 Pure hypercholesterolemia, unspecified; I10 Essential (primary) hypertension; Z79.4 Long term (current) use of insulin; Z95.5 Presence of coronary angioplasty implant and graft; Z99.3 Dependence on wheelchair; I48.0 Paroxysmal atrial fibrillation; I25.5 Ischemic cardiomyopathy; Z87.891 Personal history of nicotine dependence
CPT/HCPCS: 99284; 70450; 72125; 93005

== ENCOUNTER → 2024-09-07 10:38 | Outpatient (REF) | payer MEDICARE, OTHER, SELFPAY ==
[2024-09-07 11:25] LABS: Urine Albumin 1+ (Neg - Trace); Urine Bilirubin Negative (Negative); Urine Character Slightly Cloudy (Clear); Urine Color Yellow; Urine Glucose 4+ (Negative); Urine Ketone Negative (Negative); Urine Leukocyte 3+ (Negative); Urine Nitrite Positive (Negative); Urine Occult Blood 2+ (Negative); Urine Specific Gravity 1.015 (<1.030); Urine Urobilinogen Negative (Neg - 1+)
[2024-09-07 12:18] LABS: Urine Amorphous Seen; Urine Squamous Cell 0-2 /LPF (Few)
[2024-09-07 12:19] LABS: Urine Bacteria Many (Negative); Urine White Cell >100 /HPF (0-5)
== END ==
LOC: OLABN 10:38
PROVIDERS: ATTENDING PHYSICIAN Student in an Organized Health Care Education/Training Program
DX: R82.90 Unspecified abnormal findings in urine (principal)
CPT/HCPCS: 81003; 81015; 87077; 87086

== ENCOUNTER 2024-09-15 10:46 | Emergency (ER) | payer MEDICARE, OTHER, SELFPAY ==
[2024-09-15 10:49] VITALS: BP 102/68
[2024-09-15 10:55] LABS: Glucose - Point of Care 266 mg/dl (70-99)
[2024-09-15 11:00] VITALS: BP 143/74
--- NOTE | 2024-09-15 11:01 | ED.GENMED ---
History of Present Illness
General
Chief Complaint: Seizure
Time Seen by Provider: 09/15/24 10:57
History of Present Illness
History of Present Illness:
TIME OF INITIAL ENCOUNTER: 11 AM
HPI: Earlier today, while at [facility], the patient had an episode where he was shaking. EMS reports that nursing staff noted that he was staring off to the side and then had shaking episode that lasted for about 30 seconds. Patient
remembers this episode and never lost consciousness. He has no specific complaints. No pain.
EXAM:
GENERAL: The patient appears generally weak and debilitated
HEENT: Slightly dry, pupils are small bilaterally, hard of hearing (reads lips)
CARDIOVASCULAR: No murmurs, normal heart rate, regular rhythm, No chest wall tenderness
PULMONARY: No respiratory distress, breath sounds are clear and equal
ABDOMEN: Soft with no peritoneal signs, no tenderness
NEUROLOGIC: Fair strength all extremities, no coordination deficits
PSYCHIATRIC: Appropriate mental status, normal insight and judgement
EXTREMITIES: Nontender, no edema, moves all extremities equally
SKIN: No rash, no lesions
NUMBER AND COMPLEXITY OF PROBLEMS ADDRESSED AT THE ENCOUNTER
� Chronic conditions affecting care: CAD, IDDM, high blood pressure
� Acute Exacerbation and/or Progression of Chronic Illness: This is an acute problem.
� Differential Diagnosis includes: CVA, hypotension, dehydration, seizure
AMOUNT AND/OR COMPLEXITY OF DATA TO BE REVIEWED AND ANALYZED
� I performed an independent evaluation of and my interpretation is:
EKG:
CT: CT shows a small hypodensity in the frontal region
X-rays:
Laboratory Studies: White count is normal, hemoglobin slightly lower at 12.7 but near baseline, chemistries unremarkable however the glucose is 245
Other:
� Review of other/old records: I reviewed records, the patient was admitted with wheezing in 2022
� Clinical information was obtained by an independent historian:
� Prescriptions/Medications Considered but not given:
� Further testing considered but not performed:
RISK OF COMPLICATIONS AND/OR MORBIDITY OR MORTALITY OF PATIENT MANAGEMENT
� Social determinants of health affecting care: Resides at [facility]
� Discussion with other providers: Spoke to neurology�see below
� Escalation of care including admission/observation vs risk of discharge considered: The patient was seen by Dr. Martínez in the emergency department and suspects the possibility of complex partial seizure. However he recommends
against any other treatment. The patient is already on Eliquis.
ANY OTHER UPDATES:
Past History
Past History
ED Past Medical History: CAD, HTN, Hypercholesterolemia, IDDM and Other (Arthritis, Bilateral hearing aids. Vertigo)
ED Past Surgical History: Cardiac (Stents)
Patient has exhibited threatening behavior?: No
PSI?: No
Social History
Tobacco: Former smoker
Alcohol: Occasional
Personal:
Living: with family
Employment: Retired
Family History
Family History: Other (Mother with thyroid cancer, father with throat cancer)
Phy Exam
Physical Exam
Physical Exam:
See HPI
Course
Orders/Labs/Results
Orders:
Orders
09/15/24 10:55
Complete Blood Count/With Diff Urgent
Comprehensive Metabolic Panel Urgent
09/15/24 11:00
CT Head W/o Iv Contrast Urgent
Comment:
Reason For Exam: recent falls; ?new seizure today
0.9% Sodium Chloride 500 ml [Nss] 500 ml IV BOLUS
09/15/24 12:26
Levetiracetam [Keppra] 500 mg PO NOW STA
Abnormal Lab Results
09/15/24 09/15/24
10:53 10:55
RBC 3.89 L 10^6/uL
(4.70-6.10)
Hgb 12.7 L g/dL
(13.0-18.0)
Hct 38.5 L %
(39.0-52.0)
MCV 99.0 H fL
(80.0-94.0)
MCH 32.6 H pg
(27.0-31.0)
Carbon Dioxide 31 H mmol/L
(22-30)
Glucose 245 H mg/dl
(70-99)
Total Protein 6.0 L g/dl
(6.3-8.2)
Albumin 3.4 L g/dl
(3.5-5.0)
POC Glucose 266 H mg/dl
(70-99)
09/15/24 10:55
09/15/24 10:55
Vital Signs
Initial and Last Documented VS:
Initial Vital Signs
Temp Pulse Resp BP Pulse Ox
37.1 C 76 18 102/68 96
09/15/24 10:49 09/15/24 10:49 09/15/24 10:49 09/15/24 10:49 09/15/24 10:49
Last Documented Vital Signs
Temp Pulse Resp BP Pulse Ox
37.1 C 76 18 143/74 98
09/15/24 10:49 09/15/24 11:00 09/15/24 11:00 09/15/24 11:00 09/15/24 11:00
*Critical Care Note
Total Time (30-74mins, 75-104mins- exclusive of procedures): Not Applicable
ED Attending Note
-
Portions of this chart may have been created with voice recognition software.� Occasional wrong word or��sound alike� substitutions may have occurred due to the inherent limitations of voice recognition software.
Discharge Plan
Departure
Patient Disposition: Home (Routine Discharge)
Date of Disposition: 09/15/24
Time of Disposition: 12:45
Patient with high blood pressure during this ER visit?: Yes
Discharge Problem:
Complex partial seizure
Instructions: Seizures, Adult (DC), BLOOD PRESSURE
Prescriptions:
No Action
tamsulosin 0.4 MG capsule
0.8 mg PO QPM
atorvastatin 40 MG tablet
40 mg PO DAILY@1829
metoprolol succinate 25 MG tablet extended release 24 hr
25 mg PO DAILY
magnesium hydroxide [Milk of Magnesia] 400 mg/5 mL Suspension
30 ml PO HSPRN PRN (Reason: lack of bm)
bisacodyl [Dulcolax (bisacodyl)] 10 mg Suppository
10 mg AR DAILYPRN PRN (Reason: when no bm/mom ineffective)
acetaminophen 325 MG tablet
650 mg PO Q4HPRN PRN (Reason: mild pain/temp> 100.4F)
famotidine 20 MG tablet
20 mg PO HS
albuterol sulfate 1 PUFF HFA aerosol inhaler
2 puff inhalation R Q4HPRN PRN (Reason: sob)
Eliquis 5 MG tablet
5 mg PO BID@829,1829
metformin 500 mg Tablet
500 mg PO BID
glimepiride 2 mg Tablet
2 mg PO DAILY
escitalopram oxalate 10 mg Tablet
10 mg PO DAILY
cholecalciferol (vitamin D3) 250 mcg (10,000 unit) Tablet
1,500 mcg PO QMONTH
Rx Instructions:
3rd fri
Fiasp FlexTouch U-100 Insulin 100 unit/mL (3 mL) Insulin Pen
26 unit SC DAILY
Fiasp FlexTouch U-100 Insulin 100 unit/mL (3 mL) Insulin Pen
1 sliding scale dose SC TID
Rx Instructions:
151-200=2u,201-250=4u,251-300=6u,301-350=8u,351-400=10u,>400=12u
Fiasp FlexTouch U-100 Insulin 100 unit/mL (3 mL) Insulin Pen
22 unit SC HS
prednisone 10 mg tablet
See Rx Instructions .ROUTE .COMPLEX Qty: 45 0RF
Rx Instructions:
5 tabs day 1-3, 4 tabs day 4-6, 3 tabs day 7-9, 2 tabs day 10-12, 1 tab day 13-15
albuterol sulfate 90 mcg/actuation HFA aerosol inhaler
2 puff inhalation Q6H PRN (Reason: shortness of breath or wheezing) Qty: 8.5 0RF
Referrals:
Jeffry Yang, [Family Provider] -
Activity Restrictions/Additional Instructions:
The CAT scan shows a new hypodensity in the brain which could be reflective of a recent stroke. We had the neurologist, Dr. Martínez evaluate him and suspecting maybe he has partial complex seizure activity today. However he recommends against any
antiepileptic drug. Return here if worse or other concerns.
Interventions
Interventions:
*Risk Screen - Suicide Last Done: 09/15/24 10:49
*General Assessment Last Done: 09/15/24 10:49
*Neglect/Abuse Screening Last Done: 09/15/24 10:49
ED- Cardiac Assessment Last Done: 09/15/24 11:30
ED- Neurological Assessment Last Done: 09/15/24 11:30
ED- Pulmonary Assessment Last Done: 09/15/24 11:30
Discharge Date and Time
Print Language: CROATIAN
[2024-09-15] MEDS: NSS 500 IV (11:08)
[2024-09-15 11:21] LABS: % Basophils 0.3 % (0-2); % Eosinophils 4.3 % (0-6); % Immature Granulocytes 0.3 % (0-0.5); % Lymphocytes 24.1 % (20.5-51.1); % Monocytes 8.1 % (1.7-9.3); % Neutrophils 62.9 % (42.2-75.2); Absolute Eosinophils 0.3 10^3/uL (0-0.7); Absolute Lymphocytes 1.6 10^3/uL (1.2-3.4); Absolute Monocytes 0.6 10^3/uL (0.1-0.6); Absolute Neutrophils 4.3 10^3/uL (1.4-6.5); Hematocrit 38.5 % (39.0-52.0); Hemoglobin 12.7 g/dL (13.0-18.0); Mean Corpuscular Hgb 32.6 pg (27.0-31.0); Mean Platelet Volume 9.7 fL (7.4-10.4); Nucleated Red Blood Cells % 0 % (-); Platelet Count 149 10^3/uL (130-400); Red Blood Cell Count 3.89 10^6/uL (4.70-6.10); Red Cell Dist. Width 12.7 % (11.5-14.5); White Blood Cell Count 6.8 10^3/uL (4.8-10.8)
[2024-09-15 11:41] LABS: ALT (SGPT) 16 U/L (0-50); AST (SGOT) 20 U/L (17-59); Albumin 3.4 g/dl (3.5-5.0); Alkaline Phosphatase 71 U/L (38-126); Blood Urea Nitrogen 15 mg/dl (9-20); Calcium 9.4 mg/dl (8.4-10.2); Carbon Dioxide 31 mmol/L (22-30); Chloride 104 mmol/L (98-107); Glucose 245 mg/dl (70-99); Potassium 4.2 mmol/L (3.5-5.1); Sodium 137 mmol/L (135-145); Total Bilirubin 0.6 mg/dl (0.2-1.3); eGFR > 60.00
[2024-09-15 12:00] VITALS: BP 166/102
--- NOTE | 2024-09-15 12:48 | CON.NEURO ---
Neuro Assessment/Plan
Assessment
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
would not treat the seizure unless frequent/bothersome
For the acute/subacute right frontal stroke, secondary prevention continue Eliquis, Lipitor 40
afib on Eliquis
with his age, poor functional status, would not be a good candidate for carotid revascularization, can skip carotid imaging, discharge back to [place]
Consultation
Order
Date of Consultation: 09/15/24
Requesting Provider: Angelo Son
Reason for Consult: seizure
Subjective/Objective
Subjective Data
Date of Service: September 15, 2024
84 year old man h/o DM, HTN, HLD, Afib on Eliquis, from [facility] with episode of shaking left side of the body, preserved awareness, lasting 30 seconds. He remembers the event.
he denies any new weakness/numbness. baseline wheelchair bound, non-ambulatory
Objective Data
Vital Signs
Temp Pulse Resp BP Pulse Ox
37.1 C 76 18 143/74 98
09/15/24 10:49 09/15/24 11:00 09/15/24 11:00 09/15/24 11:00 09/15/24 11:00
Lab Results
09/15/24 10:55
09/15/24 10:55
Sodium 137 mmol/L (135-145) 09/15/24 10:55
Potassium 4.2 mmol/L (3.5-5.1) 09/15/24 10:55
BUN 15 mg/dl (9-20) 09/15/24 10:55
Glucose 245 mg/dl (70-99) H 09/15/24 10:55
Calcium 9.4 mg/dl (8.4-10.2) 09/15/24 10:55
Patient Allergies
No Known Allergies Allergy (Verified 09/15/24 10:47)
Physical Exam
-
AAOx3, speech clear
VFF, EOMI, face symmetric
LUE 5-/5, RUE 5/5, b/l LE 2/5
sensation intact to touch
Medications
-
Home Medications
�Medication �Instructions �Recorded
tamsulosin 0.4 mg capsule 0.8 mg PO QPM Urinary issue 08/10/18
atorvastatin 40 mg tablet 40 mg PO DAILY@1830 High 07/20/20
cholesterol
metoprolol succinate 25 mg 25 mg PO DAILY Heart 07/20/20
tablet,extended release 24 hr disease/condition
acetaminophen 325 mg tablet 650 mg PO Q4HPRN PRN mild 07/25/22
pain/temp> 100.4F
albuterol sulfate 90 mcg/actuation 2 puff inhalation R Q4HPRN PRN sob 07/25/22
aerosol inhaler
apixaban 5 mg tablet (Eliquis) 5 mg PO BID@0830,1830 Blood clot 07/25/22
prevention/tx
bisacodyl 10 mg rectal suppository 10 mg ID DAILYPRN PRN when no 07/25/22
(Dulcolax (bisacodyl)) bm/mom ineffective
famotidine 20 mg tablet 20 mg PO HS Gastrointestinal issue 07/25/22
magnesium hydroxide 400 mg/5 mL 30 ml PO HSPRN PRN lack of bm 07/25/22
oral suspension (Milk of Magnesia)
cholecalciferol (vitamin D3) 250 1,500 mcg PO QMONTH 05/04/24
mcg (10,000 unit) tablet
escitalopram oxalate 10 mg tablet 10 mg PO DAILY 05/04/24
glimepiride 2 mg tablet 2 mg PO DAILY 05/04/24
insulin aspart 1 sliding scale dose SC TID 05/04/24
(niacinamide)(U-100) 100 unit/mL(3
mL) subcutaneous pen (Fiasp
FlexTouch U-100 Insulin)
insulin aspart 22 unit SC HS 05/04/24
(niacinamide)(U-100) 100 unit/mL(3
mL) subcutaneous pen (Fiasp
FlexTouch U-100 Insulin)
insulin aspart 26 unit SC DAILY 05/04/24
(niacinamide)(U-100) 100 unit/mL(3
mL) subcutaneous pen (Fiasp
FlexTouch U-100 Insulin)
metformin 500 mg tablet 500 mg PO BID 05/04/24
albuterol sulfate 90 mcg/actuation 2 puff inhalation Q6H PRN 08/18/24
aerosol inhaler shortness of breath or wheezing
#8.5 grams
prednisone 10 mg tablet See Rx Instructions .Route 08/18/24
.COMPLEX #45 tabs
[2024-09-15 13:00] VITALS: BP 145/85
[2024-09-15] MEDS: KEPPRA 500 MG PO (13:00)
[2024-09-15 14:00] VITALS: BP 151/85
== END 2024-09-15 15:23 | disposition home or self-care (01) ==
LOC: EMR 10:46
PROVIDERS: EMERGENCY PHYSICIAN Emergency Medicine; FAMILY PHYSICIAN Student in an Organized Health Care Education/Training Program; OTHER PHYSICIAN Psychiatry & Neurology Clinical Neurophysiology
DX: G40.209 Localization-related (focal) (partial) symptomatic epilepsy and epileptic syndromes with complex partial seizures, not intractable, without status epilepticus (principal); I25.10 Atherosclerotic heart disease of native coronary artery without angina pectoris; I10 Essential (primary) hypertension; E78.00 Pure hypercholesterolemia, unspecified; I48.91 Unspecified atrial fibrillation; Z79.01 Long term (current) use of anticoagulants; Z79.4 Long term (current) use of insulin; Z79.84 Long term (current) use of oral hypoglycemic drugs; Z87.891 Personal history of nicotine dependence; Z95.5 Presence of coronary angioplasty implant and graft; Z99.3 Dependence on wheelchair
CPT/HCPCS: 99284; 96360; 70450; 80053; 82962; 85025

== ENCOUNTER 2024-09-20 17:20 | Inpatient (IN) | payer MEDICARE, OTHER, SELFPAY ==
[2024-09-19] VITALS (16 sets, daily range): BP systolic 109–162; BP diastolic 41–119
[2024-09-19 01:55] LABS: % Basophils 0.3 % (0-2); % Eosinophils 1.6 % (0-6); % Immature Granulocytes 0.3 % (0-0.5); % Lymphocytes 10.2 % (20.5-51.1); % Monocytes 7.5 % (1.7-9.3); % Neutrophils 80.1 % (42.2-75.2); Absolute Eosinophils 0.1 10^3/uL (0-0.7); Absolute Lymphocytes 0.8 10^3/uL (1.2-3.4); Absolute Monocytes 0.6 10^3/uL (0.1-0.6); Absolute Neutrophils 6.4 10^3/uL (1.4-6.5); Hematocrit 35.3 % (39.0-52.0); Hemoglobin 11.9 g/dL (13.0-18.0); Mean Corp Hgb Conc. 33.7 g/dL (33.0-37.0); Mean Corpuscular Hgb 32.8 pg (27.0-31.0); Mean Corpuscular Volume 97.2 fL (80.0-94.0); Mean Platelet Volume 9.6 fL (7.4-10.4); Nucleated Red Blood Cells % 0 % (-); Platelet Count 130 10^3/uL (130-400); Red Blood Cell Count 3.63 10^6/uL (4.70-6.10); Red Cell Dist. Width 12.5 % (11.5-14.5)
[2024-09-19 01:56] LABS: Glucose - Point of Care 137 mg/dl (70-99)
[2024-09-19 02:16] LABS: NT-proBNP 203 pg/ml
[2024-09-19 02:18] LABS: ALT (SGPT) 14 U/L (0-50); AST (SGOT) 18 U/L (17-59); Albumin 3.2 g/dl (3.5-5.0); Alkaline Phosphatase 66 U/L (38-126); Blood Urea Nitrogen 21 mg/dl (9-20); Calcium 9.4 mg/dl (8.4-10.2); Carbon Dioxide 29 mmol/L (22-30); Chloride 105 mmol/L (98-107); Glucose 152 mg/dl (70-99); Potassium 4.4 mmol/L (3.5-5.1); Sodium 137 mmol/L (135-145); Total Bilirubin 0.4 mg/dl (0.2-1.3); Total Protein 5.6 g/dl (6.3-8.2); eGFR > 60.00
--- NOTE | 2024-09-19 03:18 | ED.GENMED ---
History of Present Illness
<NOHEMI Boone - Last Filed: 09/19/24 04:47>
General
Chief Complaint: Breathing Problem
Source: records
Exam Limitations: clinical condition and altered mental status
Time Seen by Provider: 09/19/24 03:25
Nursing documentation reviewed up to this point in time: agreed with
History of Present Illness
History of Present Illness:
Pt is and 84 yo M with PMH of PAF, HLD, CAD, T2DM, and HTN who presents to the ER via EMS who stated he was found profusely diaphoretic by staff there and BS was 49. Patient was given 3 mg IM glucagon and 15 g oral glucose and BS upon arrival was
152. Medics reported patient was only responsive to pain and was never verbal. Patient was found to be wheezy on his was to the hospital and was given an albuterol treatment en-route. Patient is non-responsive to verbal stimuli and reacts to painful
stimuli mildly.
Past History
<NOHEMI Boone - Last Filed: 09/19/24 04:47>
Past History
ED Past Medical History: CAD, HTN, Hypercholesterolemia, IDDM and Other (Arthritis, Bilateral hearing aids. Vertigo)
ED Past Surgical History: Cardiac (Stents)
Patient has exhibited threatening behavior?: No
PSI?: No
Social History
Tobacco: Former smoker
Alcohol: Occasional
Personal:
Living: with family
Employment: Retired
Family History
Family History: Other (Mother with thyroid cancer, father with throat cancer)
Phy Exam
<NOHEMI Boone - Last Filed: 09/19/24 04:47>
General Physical Exam
General Presentation: no apparent distress
General age: appears stated age
General Skin: warm
Cardiovascular Exam
Cardiovascular Exam: regular rate/rhythm
Pulmonary Exam
Pulmonary Exam: generalized wheezing
Respirations: controlled ventilations
Breath Sounds: Wheeze: generalized
Scores
<NOHEMI Boone - Last Filed: 09/19/24 04:47>
Heart Failure Risk
Heart Failure Risk Score: Not Applicable
Course
<NOHEMI Boone - Last Filed: 09/19/24 04:47>
Orders/Labs/Results
Orders:
Orders
09/19/24 01:49
BNP [NT-proBNP] Urgent
Complete Blood Count/With Diff Urgent
Comprehensive Metabolic Panel Urgent
09/19/24 01:55
EKG [Electrocardiogram (*1)] Urgent
Reason for Study: Shortness of Breath
EKG- Treatment ONCE
09/19/24 02:00
CT Head W/o Iv Contrast Urgent
Comment:
Reason For Exam: pt responsive to painful only - recent CVA
CR Chest Single View Urgent
Reason For Exam: wheezing
09/19/24 04:20
ABG [Arterial Blood Gas] Stat
%Oxygen/Room Air: RA
09/19/24 04:35
Admit/Transfer Patient As Directed
Co-Sign Provider:
Level of Care: Observation services
Assign to:: Telemetry
Physician / Group: Hua
Diagnosis: hypoglycemia
Reason for Telemetry: CVA/TIA
Date to Stop Telemetry: 09/22/24
Time to Stop Telemetry: 11:00
PRN Pain Medication Management As Directed
May give lesser potent ordered pain med per pt: Yes
preference::
Protocol:: Medication orders for pain may be administered in a
manner that supports deferring to patient preference
when the pt is:
- Requesting an ordered lesser potent pain medication.
Least to most potent pain medications are defined
as: acetaminophen < NSAID < tramadol < opioids
(morphine, oxycodone, hydromorphone).
- Requesting a lesser dose of the same medication IF
ORDERED.
- Requesting a less intrusive route of administration
if both routes are prescribed by the provider (PO <
IV).
09/19/24 04:37
Code Status As Directed
Resuscitation Status: Do not resuscitate
Based on pt advanced directive or healthcare POA form: Yes
DNR Bracelet Application ONCE
09/19/24 05:00
Flush (0.9% Sodium Chloride) [Flush (Nss)] See Dose Instructions IV PER PROTOCOL
09/22/24 11:00
DC Protocol for Telemetry ONCE
Abnormal Lab Results
09/19/24 09/19/24
01:49 01:53
RBC 3.63 L 10^6/uL
(4.70-6.10)
Hgb 11.9 L g/dL
(13.0-18.0)
Hct 35.3 L %
(39.0-52.0)
MCV 97.2 H fL
(80.0-94.0)
MCH 32.8 H pg
(27.0-31.0)
Absolute Lymphs (auto) 0.8 L 10^3/uL
(1.2-3.4)
Neutrophils % 80.1 H %
(42.2-75.2)
Lymphocytes % 10.2 L %
(20.5-51.1)
BUN 21 H mg/dl
(9-20)
Glucose 152 H mg/dl
(70-99)
Total Protein 5.6 L g/dl
(6.3-8.2)
Albumin 3.2 L g/dl
(3.5-5.0)
POC Glucose 137 H mg/dl
(70-99)
09/19/24 01:49
09/19/24 01:49
Vital Signs
Initial and Last Documented VS:
Initial Vital Signs
Temp
97.2 F
09/19/24 01:40
Last Documented Vital Signs
Temp Pulse Resp BP Pulse Ox
97.2 F 69 18 156/79 97
09/19/24 01:40 09/19/24 04:15 09/19/24 04:15 09/19/24 04:01 09/19/24 04:15
<Kate Carreon, DO - Last Filed: 09/19/24 04:04>
Orders/Labs/Results
Orders:
Orders
09/19/24 01:49
BNP [NT-proBNP] Urgent
Complete Blood Count/With Diff Urgent
Comprehensive Metabolic Panel Urgent
09/19/24 01:55
EKG [Electrocardiogram (*1)] Urgent
Reason for Study: Shortness of Breath
EKG- Treatment ONCE
09/19/24 02:00
CT Head W/o Iv Contrast Urgent
Comment:
Reason For Exam: pt responsive to painful only - recent CVA
CR Chest Single View Urgent
Reason For Exam: wheezing
09/19/24 04:20
ABG [Arterial Blood Gas] Stat
%Oxygen/Room Air: RA
09/19/24 04:35
Admit/Transfer Patient As Directed
Co-Sign Provider:
Level of Care: Observation services
Assign to:: Telemetry
Physician / Group: Hua
Diagnosis: hypoglycemia
Reason for Telemetry: CVA/TIA
Date to Stop Telemetry: 09/22/24
Time to Stop Telemetry: 11:00
PRN Pain Medication Management As Directed
May give lesser potent ordered pain med per pt: Yes
preference::
Protocol:: Medication orders for pain may be administered in a
manner that supports deferring to patient preference
when the pt is:
- Requesting an ordered lesser potent pain medication.
Least to most potent pain medications are defined
as: acetaminophen < NSAID < tramadol < opioids
(morphine, oxycodone, hydromorphone).
- Requesting a lesser dose of the same medication IF
ORDERED.
- Requesting a less intrusive route of administration
if both routes are prescribed by the provider (PO <
IV).
09/19/24 04:37
Code Status As Directed
Resuscitation Status: Do not resuscitate
Based on pt advanced directive or healthcare POA form: Yes
DNR Bracelet Application ONCE
09/19/24 05:00
Flush (0.9% Sodium Chloride) [Flush (Nss)] See Dose Instructions IV PER PROTOCOL
09/22/24 11:00
DC Protocol for Telemetry ONCE
Abnormal Lab Results
09/19/24 09/19/24
01:49 01:53
RBC 3.63 L 10^6/uL
(4.70-6.10)
Hgb 11.9 L g/dL
(13.0-18.0)
Hct 35.3 L %
(39.0-52.0)
MCV 97.2 H fL
(80.0-94.0)
MCH 32.8 H pg
(27.0-31.0)
Absolute Lymphs (auto) 0.8 L 10^3/uL
(1.2-3.4)
Neutrophils % 80.1 H %
(42.2-75.2)
Lymphocytes % 10.2 L %
(20.5-51.1)
BUN 21 H mg/dl
(9-20)
Glucose 152 H mg/dl
(70-99)
Total Protein 5.6 L g/dl
(6.3-8.2)
Albumin 3.2 L g/dl
(3.5-5.0)
POC Glucose 137 H mg/dl
(70-99)
09/19/24 01:49
09/19/24 01:49
Vital Signs
Initial and Last Documented VS:
Initial Vital Signs
Temp
97.2 F
09/19/24 01:40
Last Documented Vital Signs
Temp Pulse Resp BP Pulse Ox
97.2 F 69 18 156/79 97
09/19/24 01:40 09/19/24 04:15 09/19/24 04:15 09/19/24 04:01 09/19/24 04:15
<Kate Carreon DO - Last Filed: 09/19/24 04:04>
*Radiology
Radiology exam reviewed: radiology read reviewed
*Pulse Oximetry
Patient hypoxic: no
*EKG
Interpreted by ED Provider?: Yes
Comparison EKG: no changes (Unchanged from previous August 28, 2024)
Rate: normal
Rhythm: sinus
[place]: normal axis
Interval: first degree heart block
QRS Pattern: low voltage
Ischemia: no ischemia
*Laborer Hoisting Interpretation
Rate: normal
Interpretation: normal
Rhythm: sinus
*Critical Care Note
Total Time (30-74mins, 75-104mins- exclusive of procedures): Not Applicable
ED Attending Note
<NOHEMI Boone - Last Filed: 09/19/24 04:47>
-
Portions of this chart may have been created with voice recognition software.� Occasional wrong word or��sound alike� substitutions may have occurred due to the inherent limitations of voice recognition software.
<DO Edilia Craven Last Filed: 09/19/24 04:04>
ED Attending Note
Patient seen and examined by attending physician: Yes
I performed the substantive portion of visit, reviewed & personally made and approve the management plan that is documented in note by myself or HANANE.: Yes
ED Attending Note:
This is an 84-year-old gentleman, long-term resident of a local penit[facility]. He has history of diabetes, hypertension, hyperlipidemia, A-fib chronically on Eliquis. Recent visit to this ED 4 days ago when penitentiary staff noticed an episode of
shaking, concern for seizure-like activity. CT of the head during that visit questions a possible acute/subacute right frontal lobe infarct. Evaluated by neurology during that ED visit and due to advanced age, poor functional status, patient noted
to be poor candidate for carotid revascularization and no evidence of seizure activity during that ED visit and at that time patient was awake and alert and conversant. He was discharged back to the [facility] for continued care.
Tonight, nursing staff noted patient to be unresponsive during their routine rounds. Upon EMS arrival patient was noted to be unresponsive, diaphoretic and hypoglycemic with blood sugar reportedly 49. He was given 3 mg of IM glucagon and oral
glucose. Despite normalization of blood sugar he remains obtunded.
Patient suffered a fall with forehead contusion earlier in the month. Unremarkable CT/cervical spine films at that time. There has been no report of recurrent falls.
GENERAL: 84-year-old obese gentleman lying Semi-Alicia's on stretcher. Markedly lethargic. Purposeful movement of his extremities and he will briefly open his eyes to verbal stimuli and briefly looks to the examiner but is nonverbal and not
following commands.
EYE: pupils pinpoint bilaterally. anicteric. There is light green resolving ecchymosis bilateral forehead regions.
NECK: Supple, nontender, no meningismus, no significant adenopathy.
ENT: oral mucosa is moist. No rhinorrhea. TMs are clear bilaterally.
CARDIAC: Regular rate and rhythm. no murmur.
LUNGS: Patient is mildly moaning but no respiratory distress. Pulse ox 97% on room air. Poor inspiratory effort otherwise lungs are clear to auscultation.
ABDOMEN: Rotund, soft, nondistended, without appreciable tenderness.
NEUROLOGICAL: Markedly lethargic, opens eyes briefly to verbal stimuli but remains nonverbal. Purposeful movement of all 4 extremities.
SKIN: Warm and dry, normal color, skin intact. No rash.
MUSCULOSKELETAL: No C/C/E. peripheral pulses are full and equal b/l. No palpable tenderness.
PSYCH: Unobtainable.
Acute encephalopathy. Concern for prolonged postictal state. Concern for prolonged encephalopathy related to hypoglycemia. Concern for acute CVA.
Patient will briefly open his eyes, look to the examiner but remains nonverbal. This appears somewhat improved from initial presentation.
CT of the head shows no acute findings.
Labs are unremarkable.
Vital signs are stable.
Patient will require acute hospitalization for continued care, neurologic workup with concern for recurrent seizures, concern for recurrent hypoglycemia and concern for acute CVA.
Discharge Plan
Departure
Patient Disposition: Admit
Date of Disposition: 09/19/24
Time of Disposition: 03:55
Admit to: Telemetry
Admit to doctor: Hua
Presentation/result/management discussed w/ accepting MD/DO: Hospitalist
Condition: Fair
Discharge Problem:
Acute encephalopathy, Acute hypoglycemic episode, Concern for seizure disorder
Prescriptions:
No Action
tamsulosin 0.4 MG capsule
0.8 mg PO DAILY
atorvastatin 40 MG tablet
40 mg PO DAILY@1830
metoprolol succinate 25 MG tablet extended release 24 hr
25 mg PO DAILY
magnesium hydroxide [Milk of Magnesia] 400 mg/5 mL Suspension
2,400 mg PO HSPRN PRN (Reason: lack of bm)
bisacodyl [Dulcolax (bisacodyl)] 10 mg Suppository
10 mg MI DAILYPRN PRN (Reason: when no bm/mom ineffective)
acetaminophen 325 MG tablet
650 mg PO Q4HPRN PRN (Reason: mild pain/temp> 100.4F)
famotidine 20 MG tablet
20 mg PO HS
Eliquis 5 MG tablet
5 mg PO BID
metformin 500 mg Tablet
500 mg PO BID
glimepiride 2 mg Tablet
2 mg PO DAILY
escitalopram oxalate 10 mg Tablet
10 mg PO DAILY
cholecalciferol (vitamin D3) 250 mcg (10,000 unit) Tablet
1,500 mcg PO QMONTH
Rx Instructions:
3rd wed
ipratropium-albuterol 0.5 mg-3 mg(2.5 mg base)/3 mL Solution For Nebulization
3 ml INHALATION Q6H PRN (Reason: wheezing)
insulin aspart U-100 100 unit/mL (3 mL) Insulin Pen
0 - 12 sliding scale dose SC DIRECTED
Rx Instructions:
71-150=0 units; 151-200=2 units; 201-250=4 units; 251-300=6 units; 301-350=8 units; 351-400=10 units; >400 =12 units call MD
insulin aspart U-100 100 unit/mL (3 mL) Insulin Pen
26 unit SC DAILY@0830
insulin aspart U-100 100 unit/mL (3 mL) Insulin Pen
20 unit SC HS@2030
Probiotic
250 mg PO DAILY
Rx Instructions:
through 09/20/24
albuterol sulfate 90 mcg/actuation HFA aerosol inhaler
2 puff inhalation Q4H PRN (Reason: sob/wheezing)
glucagon HCl [Glucagon (HCl) Emergency Kit] 1 mg Recon Soln
1 mg IM DAILY PRN (Reason: hypoglycemia)
Referrals:
UNKNOWN - PT DOES,NOT KNOW [Family Provider] -
Interventions
Interventions:
*Risk Screen - Suicide Last Done: 09/19/24 01:40
*General Assessment Last Done: 09/19/24 01:40
*Neglect/Abuse Screening Last Done: 09/19/24 01:40
*ED- Fall Risk Assessment Last Done: 09/19/24 01:46
ED- Cardiac Assessment Last Done: 09/19/24 02:05
ED- Pulmonary Assessment Last Done: 09/19/24 02:05
Discharge Date and Time
Print Language: OCCITAN
--- NOTE | 2024-09-19 04:03 | HPS.HSE ---
Family Physician
-
Family Physician: NOT KNOW UNKNOWN - PT DOES
Chief Complaint
-
Found unresponsive with hypoglycemia
History of Present Illness
This is a 84-year-old with past medical history of atrial fibrillation on Eliquis, hypertension, hyperlipidemia, CAD, insulin-dependent diabetes, new onset simple partial seizure 4 days ago where was found to have acute/subacute right frontal
stroke, evaluated by neurology and ultimately sent home on his current medications now brought to the emergency department by EMS for unresponsiveness.
Per record patient was found unresponsive by [facility] staff while doing the rounds. His blood sugar was noted to be 46. IM glucagon x 3 and was given oral glucose was given as well. Blood glucose levels increased from 49-70. Did not note any
seizure activity. Despite the rise in blood sugar patient has remained obtunded.
Here in the emergency department he has been in the blood pressure of 122/54, pulse rate of 71 with oxygen saturation of 95% on room air. ECG shows normal sinus rhythm at a rate of [address] or T wave changes. Chest x-ray shows no
acute infiltrates.
CBC was unremarkable. Electrolytes BUN/creatinine were normal. Glucose was 152.
CT of the head was unchanged from prior showing no acute intracranial hemorrhage, mass or mass effect. He had white matter small vessel ischemic disease.
Medical History
Past Medical History
Past Medical History: Reports CVA, Dementia and Other
Additional Past Medical History:
HTN, HLD, CAD, cardiac cath 2008 no intervention, chronic ambulatory dysfunction, migraines, ex-smoker, prostate CA, CAMPO, skin CA, anemia, thrombocytopenia morbid obesity
Past Surgical History: Reports Other
Additional Past Surgical History:
B/L knee arthroscopies, right knee replacement 2016, stapedectomy left ear, hemorrhoidectomy 27 years ago, skin graft from leg to head, cyst removal to neck
Social History
Tobacco: Former Smoker (Quit 30 years ago prior 35 years ago + cigars)
Drug: None
Personal: Single
Living: [facility])
Employment: Retired
Family History
Family History: Not pertinent
Allergies / Home Medications
Allergies reflects when Allergies were last updated in [email or web address].
Home Medications with original date entered in [email or web address]
Allergy/Medication List:
Allergies
Allergy/AdvReac Type Severity Reaction Status Date / Time
No Known Allergies Allergy Verified 12/21/19 15:33
Home Medications
tamsulosin 0.4 mg capsule 0.4 mg PO BID@829,1829 Urinary issue 08/10/18
atorvastatin 40 mg tablet 40 mg PO DAILY@1829 High cholesterol 07/20/20
metoprolol succinate 25 mg tablet,extended release 24 hr 25 mg PO DAILY Heart disease/condition 07/20/20
zinc sulfate 50 mg zinc (220 mg) capsule 220 mg PO DAILY 07/28/20
acetaminophen 325 mg tablet 650 mg PO Q4H PRN mild pain/temp> 100.4F 07/25/22
albuterol sulfate 90 mcg/actuation aerosol inhaler 2 puff inhalation R Q4 PRN sob 07/25/22
apixaban 5 mg tablet (Eliquis) 5 mg PO BID@829,182907/25/22
bisacodyl 10 mg rectal suppository (Dulcolax (bisacodyl)) 10 mg MD DAILY PRN when no bm/mom ineffective 07/25/22
cholecalciferol (vitamin D3) 125 mcg (5,000 unit) tablet (Vitamin D3) 1,500 mcg PO MONTHLY 07/25/22
diclofenac sodium 1 % topical gel 2 g topical Q8H 07/25/22
escitalopram oxalate 20 mg tablet 20 mg PO DAILY 07/25/22
famotidine 20 mg tablet 20 mg PO BID@829,182907/25/22
glimepiride 4 mg tablet 4 mg PO DAILY Diabetes 07/25/22
insulin aspart U-100 100 unit/mL subcutaneous solution 0 - 12 sliding scale dose SC AC 07/25/22
insulin aspart U-100 100 unit/mL subcutaneous solution 32 unit SC BID@0830,202907/25/22
lidocaine 4 % topical patch 1 patch topical DAILY 07/25/22
magnesium hydroxide 400 mg/5 mL oral suspension (Milk of Magnesia) 30 ml PO HS PRN lack of bm 07/25/22
quetiapine 25 mg tablet 12.5 mg PO DAILY 07/25/22
trazodone 50 mg tablet 25 mg PO DAILY@1830 07/25/22
Review of Systems
-
Unable to obtain full review of systems at this time due to: Acuity
Physical Exam
Vital Signs
Vital Signs
Temp Pulse Resp BP Pulse Ox
97.2 F 71 15 122/54 95
09/19/24 01:40 09/19/24 03:00 09/19/24 03:00 09/19/24 03:00 09/19/24 03:00
Physical Exam
General: No Apparent Distress
HEENT: Anicteric, Moist mucous membranes, PERRLA, [place] Conjunctivae, Nose Appears Normal, Neck Nontender and Other (left forehead hematoma)
Respiratory: Other (externally audible, course expiratory wheezes concerning for upper airway narrowing versus retained secretions)
Cardiac: S1/S2 and Regular Rhythm
Breast: Deferred by me
GI: Other (morbidly obese)
Rectal: Brown
Genito-urinary: Deferred by me
Musculoskeletal: No Clubbing, No Cyanosis, Edema, Left Lower Extremity (trace) and Edema, Right Lower Extremity (trace)
Skin: Warm
Neuro: Other (arousable, attempts to follow simple commands and shows no focal deficits. Poor sustained effort before returning to somnolence. Not currently obtunded but concern remains about airway protection)
Hematologic/Lymphatic: No Lymphadenopathy
Laboratory Results
-
09/19/24 01:49
09/19/24 01:49
Laboratory Results
Total Bilirubin 0.4 mg/dl (0.2-1.3) 09/19/24 01:49
AST 18 U/L (17-59) 09/19/24 01:49
ALT 14 U/L (0-50) 09/19/24 01:49
Alkaline Phosphatase 66 U/L (38-126) 09/19/24 01:49
Data Reviewed
-
Diagnostic Radiology: Image Personally Visualized and interpreted
CT Scan: Report Reviewed by me
Medical Tests (Nuc Med, Echo, EKG etc): Image Personally Visualized and interpreted
Lab Data: Labs Reviewed by me
Old Records: Reviewed
Impression/Plan
-
IMPRESSION:
84-year-old with fairly complex past medical history including CAD, prior TIA, atrial fibrillation on anticoagulation, morbid obesity, insulin-dependent diabetes, AV block status post pacemaker, GERD, unspecified bronco spasticity presenting to the
emergency department after being found unresponsive during rounds [facility] the [facility]. He was found to be hypoglycemic to a low of 49. He was resuscitated with glucagon injection and glucose gel and currently blood glucose is around 100. Patient
is arousable for me and attempt to follow commands. Can squeeze my hands open his eyes try to open his mouth. There is no facial droop. There is a left frontal head contusion. No acute intracranial bleed. No mass or mass effect. Unchanged from
prior. He had recently suffered a new/subacute right frontal stroke with simple partial seizure noted 4 days ago. He was discharged home on his Eliquis and Lipitor and antiepileptic medications were not initiated unless the seizures were frequent
or bothersome. Due to his poor functional status he will not be a good candidate for carotid revascularization will vascular imaging was recommended.
PLAN:
1. Somnolence/obtundation with hypoglycemia -primarily hypoglycemia with delayed return to normal mental status versus postictal state. The patient has a UTI per records and is currently on antibiotics from the penitentiary with no evidence of
acute infection here. Possible recurrence of CVA but no findings on the CT of the head to suggest a new process. No bleeding or mass or mass effect noted.
-Admit to telemetry
-N.p.o. for now
-Maintain glucose greater than 100
-Check ABG,
-Head of bed at 30 degrees normal
-Monitor for any repeat seizure-like activity.
- Repeat CT scan in 24 hours
2. Hypoglycemia - possibly from seizure or exogenous insulin
- Sliding scale insulin every 6 hours for now
- Hold metformin
3. Stroke
-Continue aspirin statin and Eliquis when tolerating p.o.
4. Coarse breath sounds without hypoxia -did not suspect his asthma exacerbation but cannot rule out aspiration. No signs of infection
- ABG
- DuoNebs RTC as needed
- N.p.o. until improvement in mental status noted and guaranteed hearing protection
5. Seizure -simple partial seizures thought secondary to recent subacute stroke. No seizure activity at this moment and no recommendation for antiepileptic drugs
- Monitor
DVT prophylaxis�on Eliquis
CODE STATUS� DNR. Patient's POLST states that she is comfort measures only. Antibiotics (oral?) as needed. No iv fluids, tubes, pressors or central lines or invasive procedures. Called son to discuss the possibility of dextrose infusion if
needed but unable to reach, prn dextrose amps may be acceptable for now.
--- NOTE | 2024-09-19 04:33 | EDRN ---
Pt more alert - opened eyes and keeps them open. Still non verbal. Reportedly gave RT a 'thumbs up'.
[2024-09-19 05:23] LABS: HCO3 28.2 mmol/L (21-28); O2 Saturation % 99.3 % (94-98); PCO2 50 mmHg (35-48); PO2 91 mmHg (83-108); pH 7.36 (7.35-7.45)
--- NOTE | 2024-09-19 07:21 | W.PN.HOSP.TC ---
Addendum entered and electronically signed by Bassam Holland MD 09/19/24 23:10:
Correction: #Coarse breath sounds with hypoxia
Addendum entered and electronically signed by Bassam Holland MD 09/19/24 22:38:
Patient is on Eliquis so no need for CT Chest PE (PE unlikely anway). Continue pulmonary toilet measures. No need for any CT at this time. Pulmonary will see patient tomorrow.
Original Note:
Today's Communication/Plan
-
Pulmonary toilet, CT Chest, although patient appears relatively comfortable and is only mildly hypoxic
Continue D5 1/2 normal saline
Continue accuchecks to make sure patient does not become hypoglycemic
Recheck BMP this evening to make sure potassium not dropping from the D5 stimulating Insulin, and to make sure other electrolytes are okay
Best to continue to monitor in IMU given patient's respiratory condition
If needed, can try additional IV Solumedrol
CT Chest ordered
Assessment / Plan
Assessment / Plan
Physical Exam
General: No Apparent Distress
HEENT: Normocephalic, Moist mucous membranes, Left forehead hematoma
Respiratory: Coarse expiratory wheezes concerning for upper airway narrowing versus retained secretions
Cardiac: S1/S2 and Regular Rhythm
GI: Soft. Nontender. Positive bowel sounds. Other (morbidly obese)
Musculoskeletal: No Cyanosis; Edema, Left Lower Extremity (trace) and Edema, Right Lower Extremity (trace)
Skin: Warm
Neuro: Other (arousable, attempts to follow simple commands and shows no focal deficits. Poor sustained effort before returning to somnolence. Not currently obtunded but concern remains about airway protection)
Assessment/Plan
84-year-old male with past medical history of atrial fibrillation on Eliquis, prior TIA, hypertension, hyperlipidemia, CAD, AV block status post pacemaker, GERD, unspecified bronchospasticity, insulin-dependent diabetes, morbid obesity, evaluated by
neurology and ultimately sent home on his current medications now brought to the emergency department by EMS for unresponsiveness. Per record patient was found unresponsive by shelter staff during rounds at the shelter. His blood sugar
was noted to be in the upper 40s. He was given IM glucagon x 3 and oral glucose. Blood glucose levels increased from 49 to 70. Did not note any seizure activity. Despite the rise in blood sugar patient has remained obtunded. In the ER at the
time of admission, patient was arousable for me and attempt to follow commands. He was able to squeeze the admitting physician's hands, open his eyes and tried to open his mouth. There was no facial droop. There was a left frontal head contusion.
No acute intracranial bleed, mass or mass effect in imaging. He had recently suffered a new/subacute right frontal stroke with new-onset simple partial seizure (probably due to new acute/subacute right frontal stroke) noted 4 days prior to
presentation. He was discharged home on his Eliquis and Lipitor and neurologist recommended no antiepileptic drugs unless the seizures were frequent or bothersome. Due to his his age and poor functional status, he was determined not to be a good
candidate for carotid revascularization, therefore carotid imaging was not needed.
Here in the emergency department he had a blood pressure of 122/54, pulse rate of 71 with oxygen saturation of 95% on room air. ECG shows normal sinus rhythm at a rate of [address] or T wave changes. Chest x-ray showed no acute
infiltrates. CBC was unremarkable. Electrolytes BUN/creatinine were normal. Glucose was 152. CT of the head was unchanged from prior showing no acute intracranial hemorrhage, mass or mass effect. He had white matter small vessel ischemic disease.
#Somnolence/obtundation with hypoglycemia
#Symptomatic Seizure from Hypoglycemia
#Recent Seizure (prior to this hospital presentation) - simple partial seizures thought secondary to recent subacute stroke
-As of 09/19/24 afternoon, patient's mental status has improved DRAMATICALLY
-Suspected seizure from hypoglycemia -- but per neurology, he is not currently in Status Epilepticus
-Transferred to IMU given level of consciousness/lethargy initially
-ABG from 09/18/24 showed: 7.36/50/91/28.2 -- suspected chronic compensated respiratory acidosis from recent stroke, possible sleep apnea, morbid obesity
-Head of bed at 30 degrees normal
-Monitor for any repeat seizure-like activity.
-Hold Insulin and home Diabetes Mellitus medications
-Continue D5 1/2 normal saline for now
#UTI per records and is was reportedly on antibiotics from the shelter
-No evidence of acute infection here.
#Coarse expiratory wheezes concerning for upper airway narrowing versus retained secretions
-Patient having increasing coarse breath sounds; family says sometimes he becomes like that and is given Prednisone
-History of COPD? History of Asthma? Family not sure.
-Pulmonary toilet ordered including Mucinex, Inhalational Saline, Duonebs, Pulmicort, Incentive Spirometer, Acapella
-Trial of IV Solumedrol 20 mg on 09/19/24 -- can give additional IV Solumedrol if needed (patient has history of Dementia with agitation)
-Continue aspiration precautions
-Speech evaluation
-Chest x-ray with extremely low lung volumes and no acute cardiopulmonary process.
-Ordered CT Chest with contrast after discussion with pulmonary
#Recent Stroke
-Continue aspirin statin (high intensity) and Eliquis
#Coarse breath sounds without hypoxia
-Did not suspect his asthma exacerbation but cannot rule out aspiration. No signs of infection
-Per hospitalist discharge summary from July 2022, patient had wheezing and SOB at that time, was given IV steroids, wheezing resolved and he was discharged
-ABG from 09/18/24 showed: 7.36/50/91/28.2 -- suspected chronic compensated respiratory acidosis from obesity, stroke, sleep apnea
-Home PRN bronchodilators ordered
#History of Dementia with Agitation
#History of Worsening lower extremity edema
-See July 2022 Discharge Summary
-Was supposed to get cardiac work-up outpatient
#Type 2 diabetes mellitus
-Holding all Insulin given symptomatic hypoglycemia
#Paroxysmal atrial fibrillation
-Continue Metoprolol and Eliquis
#Chronic thrombocytopenia with anemia
-Monitor CBC
#Essential hypertension
-Continue beta saji
#Hyperlipidemia
-Continue Lipitor
#Coronary artery disease status post cardiac cath in 2008
-Continue beta saji, Eliquis and statin
#Gastroesophageal reflux disease
-Continue home Pepcid
#Chronic ambulatory dysfunction
#Depression
-Continue home Escitalopram
#Benign prostatic hyperplasia
-Continue home Tamsulosin
#History of prostate cancer
#Exceedingly hard of hearing
DVT Prophylaxis: Eliquis
CODE STATUS: DNR and DNI (confirmed on 09/19/24 by patient's son Chago)
On September 19, 2024, I spoke in person, inside the patient's room, to patient's son Chago and patient's sister. Patient's son Chago, who is patient's POA, clearly stated that patient is a DNR and DNI. I answered patient's son's and sister's questions
and concerns to satisfaction.
Anticipated Discharge: > 48 hours
Subjective/Interval History
-
Date of Service: September 19, 2024
Patient was seen and examined. He was very lethargic but arousable, and was able to say a sentence with his eyes open.
Objective Data
-
Labs:
Laboratory Results
09/19/24 09/19/24
01:49 04:33
WBC 8.0
Hgb 11.9 L
Hct 35.3 L
Plt Count 130
HCO3 28.2 H
Sodium 137
Potassium 4.4
Chloride 105
Carbon Dioxide 29
BUN 21 H
Creatinine 1.0
Glucose 152 H
Calcium 9.4
Total Bilirubin 0.4
AST 18
ALT 14
Alkaline Phosphatase 66
Vital Signs:
Vital Signs
Temp Pulse Resp BP Pulse Ox
97.2 F 73 18 131/83 97
09/19/24 01:40 09/19/24 06:00 09/19/24 06:00 09/19/24 06:00 09/19/24 06:00
[2024-09-19 07:45] LABS: Glucose - Point of Care 83 mg/dl (70-99)
[2024-09-19] MEDS: DUONEB 3 ML INH ×4 (08:43→19:59)
[2024-09-19] MEDS: THIAMINE INJECTION 200 MG IV ×2 (08:49→17:23)
[2024-09-19] MEDS: D5/0.45%NACL 1000 IV (10:12)
--- NOTE | 2024-09-19 11:07 | CON.NEURO ---
Neuro Assessment/Plan
Assessment
Head CT imgs and rept rev'd patchy white matter hypodensities, with focal hypodensity in right frontal lobe.
84 year old man with altered mental status, hypoglycemia. remains lethargic and mute though exam is better than what was described to me by the hospitalist
suspect he may have had symptomatic seizure from hypoglycemia. he is not actively in status epilepticus. would not treat with antiseizure drugs
certainly stroke was is possible with his aphasia. not a TNK candidate due to Eliquis.
with underlying disability and low likelihood of stroke as explanation of symptoms, I would not pursue CTA or brain MRI.
stroke secondary prevention remains Eliquis and Lipitor 40
Consultation
Order
Date of Consultation: 09/19/24
Requesting Provider: Bassam Holland
Reason for Consult: hypoglycemia, concern for nonconvulsive status epilepticus
Subjective/Objective
Subjective Data
Date of Service: September 19, 2024
This is a 84-year-old with past medical history of atrial fibrillation on Eliquis, hypertension, hyperlipidemia, CAD, insulin-dependent diabetes, new onset simple partial seizure 4 days ago where was found to have acute/subacute right frontal
stroke, evaluated by neurology and ultimately sent home on his current medications now brought to the emergency department by EMS for unresponsiveness.
Per record patient was found unresponsive by retirement staff while doing the rounds. His blood sugar was noted to be 46. IM glucagon x 3 and was given oral glucose was given as well. Blood glucose levels increased from 49-70. Did not note any
seizure activity. Despite the rise in blood sugar patient has remained obtunded.
simple partial seizure semiology: left arm shaking x30 seconds with preserved awareness
Objective Data
Vital Signs
Temp Pulse Resp BP Pulse Ox
36.4 C 75 24 116/81 96
09/19/24 07:00 09/19/24 08:45 09/19/24 08:45 09/19/24 07:00 09/19/24 08:45
Lab Results
09/19/24 01:49
09/19/24 01:49
Sodium 137 mmol/L (135-145) 09/19/24 01:49
Potassium 4.4 mmol/L (3.5-5.1) 09/19/24 01:49
BUN 21 mg/dl (9-20) H 09/19/24 01:49
Glucose 152 mg/dl (70-99) H 09/19/24 01:49
Calcium 9.4 mg/dl (8.4-10.2) 09/19/24 01:49
Vnj-L-Byqvcozexlm Pept 203 pg/ml 09/19/24 01:49
Patient Allergies
No Known Allergies Allergy (Verified 09/19/24 01:51)
Physical Exam
-
morbidly obese
lethargic, awakens easily to voice, attends bilaterally, nonverbal, following simple commands
face symmetric
grossly full strength bilateral upper ext, bilateral lower ext no effort against gravity,
Medications
-
Active Medications
Generic Name Dose Route Start Last Admin
Trade Name Freq PRN Reason Stop Dose Admin
Acetaminophen 650 mg 09/19/24 07:39
Acetaminophen 650 Mg Rectal Suppository RECTAL 10/17/24 07:38
Q4HPRN PRN
mild pain/EUGENE/temp> 100.4F
Albuterol Sulfate 2.5 mg 09/19/24 07:39
Albuterol Nebs 2.5 Mg/3 Ml Ampul INH
R Q4HPRN PRN
shortness of breath/wheeze
Protocol
Albuterol/Ipratropium 3 ml 09/19/24 08:00 09/19/24 08:43
Ipratropium 0.5/Albuterol 3 Mg (3 Ml Ampul) INH 3 ml
R QID DARIAN Administration
Protocol
Dextrose/Sodium Chloride 1,000 mls @ 100 mls/hr 09/19/24 11:00 09/19/24 10:12
D5/0.45%Nacl IV 1,000 mls
.Q10H DARIAN Administration
Insulin Aspart 0 units 09/19/24 12:00
Insulin Aspart Low Resistance 300 Units/3 Ml Pen.Injctr SC 10/17/24 11:59
Q6 DARIAN
Protocol
Ondansetron HCl 4 mg 09/19/24 07:39
Ondansetron 4 Mg/2 Ml Vial IV 10/17/24 07:38
Q6HPRN PRN
nausea and vomiting
Sodium Chloride 0 flush 09/19/24 05:00
Sodium Chloride 0.9% (Flush) Syringe IV 10/17/24 04:59
PER PROTOCOL DARIAN
Thiamine HCl 200 mg 09/19/24 08:15 09/19/24 08:49
Thiamine (100 Mg/Ml) 2 Ml Vial IV 09/22/24 00:01 200 mg
Q8 DARIAN Administration
Thiamine HCl 100 mg 09/22/24 08:00
Thiamine 100 Mg Tablet PO 10/20/24 07:59
BID DARIAN
Home Medications
�Medication �Instructions �Recorded
tamsulosin 0.4 mg capsule 0.8 mg PO DAILY Urinary issue 08/10/18
atorvastatin 40 mg tablet 40 mg PO DAILY@1830 High 07/20/20
cholesterol
metoprolol succinate 25 mg 25 mg PO DAILY Heart 07/20/20
tablet,extended release 24 hr disease/condition
acetaminophen 325 mg tablet 650 mg PO Q4HPRN PRN mild 07/25/22
pain/temp> 100.4F
apixaban 5 mg tablet (Eliquis) 5 mg PO BID Blood clot 07/25/22
prevention/tx
bisacodyl 10 mg rectal suppository 10 mg DE DAILYPRN PRN when no 07/25/22
(Dulcolax (bisacodyl)) bm/mom ineffective
famotidine 20 mg tablet 20 mg PO HS Gastrointestinal issue 07/25/22
magnesium hydroxide 400 mg/5 mL 2,400 mg PO HSPRN PRN lack of bm 07/25/22
oral suspension (Milk of Magnesia)
cholecalciferol (vitamin D3) 250 1,500 mcg PO QMONTH 05/04/24
mcg (10,000 unit) tablet
escitalopram oxalate 10 mg tablet 10 mg PO DAILY 05/04/24
glimepiride 2 mg tablet 2 mg PO DAILY 05/04/24
metformin 500 mg tablet 500 mg PO BID 05/04/24
Probiotic 250 mg PO DAILY 09/19/24
albuterol sulfate 90 mcg/actuation 2 puff inhalation Q4H PRN 09/19/24
aerosol inhaler sob/wheezing
glucagon HCl 1 mg solution for 1 mg IM DAILY PRN hypoglycemia 09/19/24
injection (Glucagon (HCl)
Emergency Kit)
insulin aspart U-100 100 unit/mL 0 - 12 sliding scale dose SC 09/19/24
(3 mL) subcutaneous pen DIRECTED
insulin aspart U-100 100 unit/mL 20 unit SC HS@2030 09/19/24
(3 mL) subcutaneous pen
insulin aspart U-100 100 unit/mL 26 unit SC DAILY@0830 09/19/24
(3 mL) subcutaneous pen
ipratropium 0.5 mg-albuterol 3 mg 3 ml inhalation Q6H PRN wheezing 09/19/24
(2.5 mg base)/3 mL nebulization
soln
[2024-09-19 11:57] LABS: Glucose - Point of Care 88 mg/dl (70-99)
--- NOTE | 2024-09-19 12:58 | PTCARENOTE ---
pt transferred to IMU w/ 2 4W RNs present. Pt AAOx1, extremely [place], however hearing aids were not brought to hospital. Pt arousable with tactile and painful stimuli. Spoke w/ daughter, pt unable to hear anyone without hearing aids in place.
Extremely drowsy upon assessment. Pt NSR w/ 1 degree AVB on the monitor, VSS. Afebrile. Bruising and lump noted to face and forehead.
--- NOTE | 2024-09-19 15:56 | PTCARENOTE ---
spoke w/ pt son, who expressed that at baseline pt is extremely difficult to arouse d/t the fact that when he doesn't have his hearing aids in, he can't hear. Even with hearing aids place, pt is extremely [place]. Once son brought hearing aids in, pt
conversing and alert. Per son, pt has hx of dementia and is usually only AAOx2.
[2024-09-19 16:39] LABS: Glucose - Point of Care 131 mg/dl (70-99)
--- NOTE | 2024-09-19 16:39 | PTCARENOTE ---
son taking pt watch home to ensure it doesn't get lost.
[2024-09-19] MEDS: SODIUM CHLORIDE 3% FOR INHALATION INH (16:50)
[2024-09-19] MEDS: FLOMAX 0.8 MG PO (17:22)
[2024-09-19] MEDS: LIPITOR 40 MG PO (17:23)
[2024-09-19] MEDS: MUCINEX 600 MG PO ×2 (17:23→20:01)
[2024-09-19] MEDS: SOLU-MEDROL PF 20 MG IV (17:24)
[2024-09-19] MEDS: LIPITOR PO (18:06)
[2024-09-19] MEDS: PULMICORT 0.25 MG INH (19:59)
[2024-09-19] MEDS: SODIUM CHLORIDE 3% FOR INHALATION 1 VIAL INH (19:59)
[2024-09-19] MEDS: ELIQUIS 5 MG PO (20:01)
--- NOTE | 2024-09-19 20:30 | PTCARENOTE ---
Received pt at shift change with hearing aides in place; arouses to verbal/tactile stimuli, AAOx1, intermittently follows simple verbal commands, offers no complaints. Neurological check complete, see flowsheet. NSR on the monitor. Tolerating 2L O2
NC with SpO2 100%, lungs with significant inspiratory and expiratory wheeze. Remainder of assessment as documented. Meds administered whole in applesauce, no overt signs of aspiration. Bed alarm on, SCD's placed, safe environment maintained.
[2024-09-19 20:56] LABS: Glucose - Point of Care 204 mg/dl (70-99)
[2024-09-19 21:08] LABS: Blood Urea Nitrogen 18 mg/dl (9-20); Calcium 9.3 mg/dl (8.4-10.2); Carbon Dioxide 29 mmol/L (22-30); Chloride 104 mmol/L (98-107); Glucose 218 mg/dl (70-99); Potassium 5.1 mmol/L (3.5-5.1); Sodium 135 mmol/L (135-145); eGFR > 60.00
[2024-09-19] MEDS: PEPCID 20 MG PO (22:18)
[2024-09-20] VITALS (21 sets, daily range): BP systolic 126–179; BP diastolic 68–111
[2024-09-20] MEDS: THIAMINE INJECTION 200 MG IV ×4 (00:15→23:05)
[2024-09-20 00:44] LABS: Glucose - Point of Care 326 mg/dl (70-99)
[2024-09-20] MEDS: DUONEB INH (02:00)
[2024-09-20 05:04] LABS: Glucose - Point of Care 264 mg/dl (70-99)
[2024-09-20 06:03] LABS: Hematocrit 36.7 % (39.0-52.0); Hemoglobin 12.4 g/dL (13.0-18.0); Mean Corp Hgb Conc. 33.8 g/dL (33.0-37.0); Mean Corpuscular Hgb 32.6 pg (27.0-31.0); Mean Corpuscular Volume 96.6 fL (80.0-94.0); Mean Platelet Volume 9.7 fL (7.4-10.4); Platelet Count 144 10^3/uL (130-400); Red Cell Dist. Width 12.4 % (11.5-14.5); White Blood Cell Count 5.2 10^3/uL (4.8-10.8)
[2024-09-20 06:26] LABS: Blood Urea Nitrogen 18 mg/dl (9-20); Calcium 9.6 mg/dl (8.4-10.2); Carbon Dioxide 30 mmol/L (22-30); Chloride 103 mmol/L (98-107); Glucose 287 mg/dl (70-99); Sodium 136 mmol/L (135-145); eGFR > 60.00
--- NOTE | 2024-09-20 06:53 | CON.PUL ---
Addendum entered and electronically signed by Breezy Mota MD 09/20/24 09:36:
- Patient is stable for discharge from pulmonary standpoint
- Pulmonary team will sign off, please call as needed
Original Note:
Consultation
Consultation Request
Date/Time Consultation Requested: 09/19/2024
Date/Time Consultation Performed: 09/20/2024
Requesting Provider: Bassam Holland
Performing Provider: Breezy Mota
Reason for Consultation: Hypercapnia
Medical History
-
Chief Complaint: Altered mental status
History of Present Illness:
This is a 84-year-old with past medical history of atrial fibrillation on Eliquis, hypertension, hyperlipidemia, CAD, insulin-dependent diabetes, who was brought to the hospital with altered mental status. Patient was reportedly noted to be
hypoglycemic down to 46 received glucagon as well as oral glucose and subsequently blood sugar has improved. Patient otherwise was noted to be hemodynamically stable. Additional workup showed a VBG which showed mild hypercapnia. On 09/19, patient
also was noted to have borderline low oxygen saturation. Pulmonary consultation was requested for further input.
Patient has no known diagnosis of COPD/asthma or cystic fibrosis. Has never been diagnosed with sleep apnea before.
During my evaluation, the patient saturating 95% on room air. Awake, alert and interactive. No respiratory distress noted. No cough. Mild end expiratory wheezing.
Past Medical History: Reports CVA, Dementia and Other
Additional Past Medical History:
HTN, HLD, CAD s/p PCI, chronic ambulatory dysfunction, migraines, ex-smoker, prostate [place], [place], skin CA, anemia, thrombocytopenia morbid obesity
Past Surgical History: Reports Other
Additional Past Surgical History:
B/L knee arthroscopies, right knee replacement 2017, stapedectomy left ear, hemorrhoidectomy 27 years ago, skin graft from leg to head, cyst removal to neck
Social History
Tobacco: Former Smoker (Quit 30 years ago prior 35 years ago + cigars)
Drug: None
Personal: Single
Living: Intermediate ([facility])
Employment: Retired
Family History
Family History: Not pertinent
Allergies / Home Medications
Allergies / Home Medications
Allergies
Allergy/AdvReac Type Severity Reaction Status Date / Time
No Known Allergies Allergy Verified 09/19/24 01:51
Home Medications
�Medication �Instructions �Recorded �Confirmed �Last Taken �Type
tamsulosin 0.4 mg capsule 0.8 mg PO DAILY Urinary issue 08/10/18 09/19/24 07/25/22 08:30 History
atorvastatin 40 mg tablet 40 mg PO DAILY@1830 High 07/20/20 09/19/24 Unknown History
cholesterol
metoprolol succinate 25 mg 25 mg PO DAILY Heart 07/20/20 09/19/24 07/25/22 08:30 History
tablet,extended release 24 hr disease/condition
acetaminophen 325 mg tablet 650 mg PO Q4HPRN PRN mild 07/25/22 09/19/24 Unknown History
pain/temp> 100.4F
apixaban 5 mg tablet (Eliquis) 5 mg PO BID Blood clot 07/25/22 09/19/24 07/25/22 08:30 History
prevention/tx
bisacodyl 10 mg rectal suppository 10 mg OR DAILYPRN PRN when no 07/25/22 09/19/24 Unknown History
(Dulcolax (bisacodyl)) bm/mom ineffective
famotidine 20 mg tablet 20 mg PO HS Gastrointestinal issue 07/25/22 09/19/24 07/25/22 08:30 History
magnesium hydroxide 400 mg/5 mL 2,400 mg PO HSPRN PRN lack of bm 07/25/22 09/19/24 Unknown History
oral suspension (Milk of Magnesia)
cholecalciferol (vitamin D3) 250 1,500 mcg PO QMONTH 05/04/24 09/19/24 Unknown History
mcg (10,000 unit) tablet
escitalopram oxalate 10 mg tablet 10 mg PO DAILY 05/04/24 09/19/24 Unknown History
glimepiride 2 mg tablet 2 mg PO DAILY 05/04/24 09/19/24 Unknown History
metformin 500 mg tablet 500 mg PO BID 05/04/24 09/19/24 Unknown History
Probiotic 250 mg PO DAILY 09/19/24 09/19/24 Unknown History
albuterol sulfate 90 mcg/actuation 2 puff inhalation Q4H PRN 09/19/24 09/19/24 Unknown History
aerosol inhaler sob/wheezing
glucagon HCl 1 mg solution for 1 mg IM DAILY PRN hypoglycemia 09/19/24 09/19/24 Unknown History
injection (Glucagon (HCl)
Emergency Kit)
insulin aspart U-100 100 unit/mL 0 - 12 sliding scale dose SC 09/19/24 09/19/24 Unknown History
(3 mL) subcutaneous pen DIRECTED
insulin aspart U-100 100 unit/mL 20 unit SC HS@2030 09/19/24 09/19/24 Unknown History
(3 mL) subcutaneous pen
insulin aspart U-100 100 unit/mL 26 unit SC DAILY@0830 09/19/24 09/19/24 Unknown History
(3 mL) subcutaneous pen
ipratropium 0.5 mg-albuterol 3 mg 3 ml inhalation Q6H PRN wheezing 09/19/24 09/19/24 Unknown History
(2.5 mg base)/3 mL nebulization
soln
Review of Systems
-
Respiratory: No Symptoms and Other (No cough, shortness of breath or chest tightness.)
Vitals / Labs / Diagnostic Testing
Vital Signs
Temp Pulse Resp BP Pulse Ox
98.4 F 80 14 157/86 95
09/20/24 03:00 09/20/24 05:00 09/20/24 05:00 09/20/24 05:00 09/20/24 05:00
Lab Data
09/20/24 05:41
09/20/24 05:41
Laboratory Results
09/19/24
15:37
pH Cancelled
pCO2 Cancelled
pO2 Cancelled
HCO3 Cancelled
O2 Delivery Level Cancelled
Diagnostic Testing:
Physical Exam
-
HEENT: Normocephalic
Cardiovascular: S1/S2
Respiratory: Wheeze (Minimal end expiratory wheezing)
GI: Soft and Non Distended
Neurology: Awake and Alert
Skin: Warm
General: Comfortable
Assessment
-
#1. Chronic compensated hypercapnia.
- Reviewed patient's venous blood gas 7.36/50. Serum carbonate is also mildly elevated from 29-32 on different occasions. Consistent with chronic compensated hypercapnia likely related to underlying obstructive airway disease and possibly
obstructive sleep apnea.
- At this point patient is awake, alert and does not show any signs of CO2 narcosis
- No further inpatient intervention needed
#2. Brief hypoxemia.
- Patient currently saturating 95% on room air. No cough, shortness of breath or expectoration reported
- Patient is anticoagulated on Eliquis hence pulmonary embolism is unlikely. No pleuritic pain reported.
- Suspect brief hypoventilation in the setting of obesity, altered mental status due to hypoglycemia
- Recommend incentive spirometry, sit up in chair if possible, increase activity as tolerated
#3. Suspect underlying COPD.
- Patient has a history of smoking in the past and he quit close to 30 years ago.
- As per son, reported history of occasional use of albuterol at the nursing facility for wheezing and occasional use of oxygen
- On exam, patient had a faint end expiratory wheeze
- Agree with continuing DuoNeb and budesonide for now, recommend discharging patient on Anoro/LAMA/LABA. Eosinophil count is 100, hold off on inhaled steroids.
- Will arrange outpatient follow-up with pulmonary clinic for pulmonary function testing and possibly sleep study for suspected sleep disordered breathing.
Other medical diagnoses:
- Hypoglycemia. Resolved
- H/O UTI
- HTN, HLD
- Paroxysmal A fib on Anticoagulation
- H/O Dementia
- h/o CAD s/p PCI 2018
- Hard of hearing
Discussed with patient's son Chago as well.
Total time spent on this consultation/encounter __80__ minutes which includes review of history, physical exam, medications, laboratory data, personal review of imaging, extensive review of outpatient records, discussion with care team and
respiratory therapy.
Data:
CXR 08/2024: Low lung volumes, otherwise unremarkable
CT Head 08/2024: Unremarkable
ECHO 06/2022: 1. Left ventricle: Normal size and function with an estimated ejection
fraction of 60-65%. Normal diastolic function.
2. Right ventricle: Normal
3. Atria: Normal
4. Mitral valve: No mitral regurgitation
5. Aortic valve: No aortic stenosis or aortic insufficiency
6. Tricuspid valve: No tricuspid regurgitation
7. No significant change when compared to the most recent echocardiogram from
12/24/2019
[facility] 07/2018: 1. Successful stenting of multisegment circumflex disease with placement of 2.5 x 12 Xience keyanna JOSH to distal OM2 and 3.5 x 15 Xience keyanna JOSH to proximal circumflex
2. Unsuccessful attempted PCI of high grade proximal RCA stenosis due to inability to pass guidewire through lesion (likely a BEAUTY THERAPIST)
[2024-09-20] MEDS: DUONEB 3 ML INH ×3 (07:59→19:36)
[2024-09-20] MEDS: PULMICORT 0.25 MG INH ×2 (08:00→19:35)
[2024-09-20] MEDS: SODIUM CHLORIDE 3% FOR INHALATION 1 VIAL INH (08:00)
[2024-09-20 08:23] LABS: Glucose - Point of Care 244 mg/dl (70-99)
--- NOTE | 2024-09-20 08:45 | PTOTSP ---
Speech Language Pathology
Pt seen for clinical bedside swallow evaluation. P.O. trials of puree, regular solids, and thin liquids provided. Adequate mastication, bolus formation, and A-P transit noted with no oral residue. No overt signs of aspiration. CXR clear, and pt
denied any hx of PNA.
Recommend:
(1) Upgrade to regular solids/thin liquids
(2) General aspiration precautions
(3) Meds as tolerated
(4) LAUNDRY PRESSER to sign off. Please reconsult as indicated
[2024-09-20] MEDS: FLOMAX 0.8 MG PO (09:22)
[2024-09-20] MEDS: LEXAPRO 10 MG PO (09:22)
[2024-09-20] MEDS: MUCINEX 600 MG PO ×2 (09:22→19:52)
[2024-09-20] MEDS: TOPROL XL 25 MG PO (09:22)
[2024-09-20] MEDS: ELIQUIS 5 MG PO ×2 (09:22→19:52)
--- NOTE | 2024-09-20 11:07 | CM ---
Addendum entered by Olamide Kurtz 09/20/24 11:35:
Copy of blank [facility] form emailed to patient's son as requested
Addendum entered by Olamide Kurtz 09/20/24 11:34:
Return to [facility] referral sent via [facility] to [facility]
Original Note:
Initial assessment completed with patient' son/Chago CALLAHAN
WARD form explained to son/POA via phone; form dated/timed for today @ 1103
Patient resides at [facility]; no longer able to ambulate; requires total care
Plan: return to [facility] residence when medically stable
[2024-09-20 12:56] LABS: Glucose - Point of Care 296 mg/dl (70-99)
[2024-09-20 16:44] LABS: Glucose - Point of Care 270 mg/dl (70-99)
--- NOTE | 2024-09-20 16:55 | W.PN.HOSP.TC ---
Today's Communication/Plan
-
resume sliding scale insulin
hold oral hypoglycemic agents for now
transfer to med/surg
Assessment / Plan
Assessment / Plan
Assessment/Plan
84-year-old male with past medical history of atrial fibrillation on Eliquis, prior TIA, hypertension, hyperlipidemia, CAD, AV block status post pacemaker, GERD, unspecified bronchospasticity, insulin-dependent diabetes, morbid obesity, evaluated by
neurology and ultimately sent home on his current medications now brought to the emergency department by EMS for unresponsiveness. Per record patient was found unresponsive by [facility] staff during rounds at the halfway. His blood sugar
was noted to be in the upper 40s. He was given IM glucagon x 3 and oral glucose. Blood glucose levels increased from 49 to 70. Did not note any seizure activity. Despite the rise in blood sugar patient remained obtunded for extended period. In
the ER at the time of admission, patient was arousable for me and attempt to follow commands. He was able to squeeze the admitting physician's hands, open his eyes and tried to open his mouth. There was no facial droop. There was a left frontal
head contusion. No acute intracranial bleed, mass or mass effect in imaging. He had recently suffered a new/subacute right frontal stroke with new-onset simple partial seizure (probably due to new acute/subacute right frontal stroke) noted 4 days
prior to presentation. He was discharged home on his Eliquis and Lipitor and neurologist recommended no antiepileptic drugs unless the seizures were frequent or bothersome. Due to his his age and poor functional status, he was determined not to be
a good candidate for carotid revascularization, therefore carotid imaging was not needed.
Here in the emergency department he had a blood pressure of 122/54, pulse rate of 71 with oxygen saturation of 95% on room air. ECG shows normal sinus rhythm at a rate of [address] or T wave changes. Chest x-ray showed no acute
infiltrates. CBC was unremarkable. Electrolytes BUN/creatinine were normal. Glucose was 152. CT of the head was unchanged from prior showing no acute intracranial hemorrhage, mass or mass effect. He had white matter small vessel ischemic disease.
#Somnolence/obtundation with hypoglycemia
resolved
#Symptomatic Seizure from Hypoglycemia
#Recent Seizure (prior to this hospital presentation) - simple partial seizures thought secondary to recent subacute stroke
-As of 09/19/24 afternoon, patient's mental status has improved DRAMATICALLY
-Suspected seizure from hypoglycemia -- but per neurology, he is not currently in Status Epilepticus
-Transferred to IMU given level of consciousness/lethargy initially
Doing well as of 09/20, will transfer to tele
-ABG from 09/18/24 showed: 7.36/50/91/28.2 -- suspected chronic compensated respiratory acidosis from recent stroke, possible sleep apnea, morbid obesity
-Head of bed at 30 degrees normal
-Monitor for any repeat seizure-like activity.
-stop Glimepiride
start sliding scale insulin
will follow glu for now and consider low dose Lantus vs resumption of Metformin
glu in 131-326 range
-Will stop D5 1/2 normal saline
#UTI per records and is was reportedly on antibiotics from the halfway
UA was infected on 09/07 with E. Coli and Klebsiella, tx with oral abx at [facility]. Will order repeat UA
-No evidence of acute infection here.
#Coarse expiratory wheezes concerning for upper airway narrowing versus retained secretions
-Patient having increasing coarse breath sounds; family says sometimes he becomes like that and is given Prednisone
-History of COPD? History of Asthma? Family not sure.
-Pulmonary toilet ordered including Mucinex, Inhalational Saline, Duonebs, Pulmicort, Incentive Spirometer, Acapella
-No further IV Solumedrol if needed due to DM
-Continue aspiration precautions
-Speech evaluation
-Chest x-ray with extremely low lung volumes and no acute cardiopulmonary process.
#Recent Stroke
-Continue aspirin statin (high intensity) and Eliquis
#Coarse breath sounds without hypoxia
-Did not suspect his asthma exacerbation but cannot rule out aspiration. No signs of infection
-Per hospitalist discharge summary from July 2022, patient had wheezing and SOB at that time, was given IV steroids, wheezing resolved and he was discharged
-ABG from 09/18/24 showed: 7.36/50/91/28.2 -- suspected chronic compensated respiratory acidosis from obesity, stroke, sleep apnea
-Home PRN bronchodilators ordered
#History of Dementia with Agitation
#History of Worsening lower extremity edema
-See July 2022 Discharge Summary
-Was supposed to get cardiac work-up outpatient
#Type 2 diabetes mellitus
-Holding all Insulin given symptomatic hypoglycemia
#Paroxysmal atrial fibrillation
-Continue Metoprolol and Eliquis
#Chronic thrombocytopenia with anemia
-Monitor CBC
#Essential hypertension
-Continue beta saji
#Hyperlipidemia
-Continue Lipitor
#Coronary artery disease status post cardiac cath in 2008
-Continue beta saji, Eliquis and statin
#Gastroesophageal reflux disease
-Continue home Pepcid
#Chronic ambulatory dysfunction
#Depression
-Continue home Escitalopram
#Benign prostatic hyperplasia
-Continue home Tamsulosin
#History of prostate cancer
#Exceedingly hard of hearing
DVT Prophylaxis: Eliquis
CODE STATUS: DNR and DNI (confirmed on 09/19/24 by patient's son Chago)
reviewed with son in room
Anticipated Discharge: 24 - 48 hours
Subjective/Interval History
-
Date of Service: September 20, 2024
Awake, alert, hard of hearing, but conversant
Objective Data
-
Labs:
Laboratory Results
09/20/24
05:41
WBC 5.2
Hgb 12.4 L
Hct 36.7 L
Plt Count 144
Sodium 136
Potassium 5.0
Chloride 103
Carbon Dioxide 30
BUN 18
Creatinine 0.8
Glucose 287 H
Calcium 9.6
Vital Signs:
Vital Signs
Temp Pulse Resp BP Pulse Ox
97.6 F 82 18 142/80 97
09/20/24 15:30 09/20/24 16:00 09/20/24 16:00 09/20/24 16:00 09/20/24 16:00
I&O
09/19/24 09/20/24 09/21/24
06:59 06:59 06:59
Intake Total 400 / 400
Balance 400 / 400
Review of Systems
-
History Source: Patient and Family (son in room)
Constitutional: Denies Fever
Respiratory: Reports Cough (chronic)
Cardiac: Denies Chest Pain
Abdomen/GI: Reports No Symptoms
Musculoskeletal: Reports Joint Pain (chronic arthritis)
Physical Exam
-
General: Well Developed, Well Nourished and No Apparent Distress
HEENT: Atraumatic and Moist Mucous Membranes
Respiratory: Wheezes (coarse wheeze (as per son, this is chronic))
Cardiac: Regular Rhythm and S1/S2
GI: Nontender and Nondistended
Musculoskeletal: No Clubbing, No Cyanosis and No Edema
Neuro: Awake, Alert and Oriented (answering basic questions)
[2024-09-20] MEDS: NOVOLOG FLEXPEN-LOW RESISTANCE 3 UNITS SC (18:00)
[2024-09-20] MEDS: LIPITOR 40 MG PO (18:25)
--- NOTE | 2024-09-20 20:19 | PTCARENOTE ---
Verbal report provided to JUAN CARLOS Thomas. Pt transferred via bed to with all belongings.
[2024-09-20 21:27] LABS: Glucose - Point of Care 244 mg/dl (70-99)
[2024-09-20] MEDS: PEPCID 20 MG PO (23:05)
[2024-09-21] MEDS: DUONEB INH (01:04)
[2024-09-21 07:00] VITALS: BP 139/65
[2024-09-21] MEDS: DUONEB 3 ML INH ×3 (07:18→19:39)
[2024-09-21] MEDS: PULMICORT 0.25 MG INH ×2 (07:18→19:39)
[2024-09-21 07:27] LABS: Hematocrit 35.2 % (39.0-52.0); Mean Corp Hgb Conc. 34.1 g/dL (33.0-37.0); Mean Corpuscular Hgb 32.8 pg (27.0-31.0); Mean Corpuscular Volume 96.2 fL (80.0-94.0); Mean Platelet Volume 9.6 fL (7.4-10.4); Platelet Count 144 10^3/uL (130-400); Red Blood Cell Count 3.66 10^6/uL (4.70-6.10); Red Cell Dist. Width 12.2 % (11.5-14.5); White Blood Cell Count 5.5 10^3/uL (4.8-10.8)
[2024-09-21 07:55] LABS: Blood Urea Nitrogen 16 mg/dl (9-20); Calcium 9.1 mg/dl (8.4-10.2); Carbon Dioxide 28 mmol/L (22-30); Chloride 104 mmol/L (98-107); Glucose 227 mg/dl (70-99); Potassium 4.3 mmol/L (3.5-5.1); Sodium 135 mmol/L (135-145); eGFR > 60.00
[2024-09-21 08:19] LABS: Glucose - Point of Care 220 mg/dl (70-99)
[2024-09-21 09:05] VITALS: BP 139/65
[2024-09-21] MEDS: TOPROL XL 25 MG PO (09:09)
[2024-09-21] MEDS: FLOMAX 0.8 MG PO (09:09)
[2024-09-21] MEDS: MUCINEX 600 MG PO ×2 (09:09→19:49)
[2024-09-21] MEDS: LEXAPRO 10 MG PO (09:09)
[2024-09-21] MEDS: ELIQUIS 5 MG PO ×2 (09:09→19:49)
[2024-09-21] MEDS: THIAMINE INJECTION 200 MG IV ×3 (09:09→23:04)
[2024-09-21] MEDS: NOVOLOG FLEXPEN-LOW RESISTANCE 2 UNITS SC (09:16)
--- NOTE | 2024-09-21 11:54 | EEG.RPT ---
Electroencephalogram Report
Recording
Date of EE09/21/24
Type of EEG: Routine
Length of EEG recordin minutes
Done with Video Recording: Yes
Patient Status: Inpatient
Recording Conditions: Awake and Drowsy
Hyperventilation Performed: No
Photic Stimulation Performed: Yes
Report
LESS THAN 1 HOUR EEG REPORT
EEG INTERPRETATION:
Mildly abnormal study for age based generalized slowing demonstrated bihemispherically equally.
CLINICAL CORRELATION:
Although normative values not been established for a person of this advanced age the patient�s symmetry of the background suggests that this study was suggestive of mild bihemispheric cortical dysfunction. No epileptiform features were demonstrated.
If concerns remain regarding epilepsy, prolonged monitoring may be of assistance.
Clinical correlation is advised.
METHODS:
A 21-channel digital electroencephalogram (EEG) was performed. The 10/20 international system of electrode placement was used with ECG and lateral/vertical eye movements recorded. The [employer] quantitative EEG analysis system was performed.
IMPRESSION(S):
Quality of study
Good
Background
Low amplitude
Anterior-posterior voltage gradient differentiation: Fair
Theta frequency maximal background demonstrated
Sleep
Drowsiness present
Hyperventilation
Not performed
Photic Stimulation
Failed to activate the record
ECG
Normal rhythm
Abnormal Activity
None
--- NOTE | 2024-09-21 12:06 | W.PN.HOSP.TC ---
Today's Communication/Plan
-
recheck labs in AM
add low dose Lantus
potential dc back to SNF tomorrow
discussed with nursing, awaiting UA
Assessment / Plan
Assessment / Plan
Assessment/Plan
84-year-old male with past medical history of atrial fibrillation on Eliquis, prior TIA, hypertension, hyperlipidemia, CAD, AV block status post pacemaker, GERD, unspecified bronchospasticity, insulin-dependent diabetes, morbid obesity, evaluated by
neurology and ultimately sent home on his current medications now brought to the emergency department by EMS for unresponsiveness. Per record patient was found unresponsive by shelter staff during rounds at the shelter. His blood sugar
was noted to be in the upper 40s. He was given IM glucagon x 3 and oral glucose. Blood glucose levels increased from 49 to 70. Did not note any seizure activity. Despite the rise in blood sugar patient remained obtunded for extended period. In
the ER at the time of admission, patient was arousable for me and attempt to follow commands. He was able to squeeze the admitting physician's hands, open his eyes and tried to open his mouth. There was no facial droop. There was a left frontal
head contusion. No acute intracranial bleed, mass or mass effect in imaging. He had recently suffered a new/subacute right frontal stroke with new-onset simple partial seizure (probably due to new acute/subacute right frontal stroke) noted 4 days
prior to presentation. He was discharged home on his Eliquis and Lipitor and neurologist recommended no antiepileptic drugs unless the seizures were frequent or bothersome. Due to his his age and poor functional status, he was determined not to be
a good candidate for carotid revascularization, therefore carotid imaging was not needed.
In the emergency department he had a blood pressure of 122/54, pulse rate of 71 with oxygen saturation of 95% on room air. ECG shows normal sinus rhythm at a rate of [address] or T wave changes. Chest x-ray showed no acute
infiltrates. CBC was unremarkable. Electrolytes BUN/creatinine were normal. Glucose was 152. CT of the head was unchanged from prior showing no acute intracranial hemorrhage, mass or mass effect. He had white matter small vessel ischemic disease.
#Somnolence/obtundation with hypoglycemia
resolved
#Symptomatic Seizure from Hypoglycemia
#Recent Seizure (prior to this hospital presentation) - simple partial seizures thought secondary to recent subacute stroke
-As of 09/19/24 afternoon, patient's mental status has improved DRAMATICALLY
-Suspected seizure from hypoglycemia -- but per neurology, he is not currently in Status Epilepticus
-Transferred to IMU given level of consciousness/lethargy initially
Doing well as of 09/20, was transferred to Med/Surg
-ABG from 09/18/24 showed: 7.36/50/91/28.2 -- suspected chronic compensated respiratory acidosis from recent stroke, possible sleep apnea, morbid obesity
-Head of bed at 30 degrees normal
-Monitor for any repeat seizure-like activity.
-stop Glimepiride
start sliding scale insulin
will follow glu for now and will resume low dose Lantus starting tonight
Unclear if insulin listed on transfer is accurate, requested nursing call SNF ([facility]) to clarify
glu in 220-296 range
-stopped D5 1/2 normal saline
Pt just back from EEG
Acute process was most likely prolonged hypoglycemia and according to son Chago, as of yesterday afternoon, mentation is back to baseline
#UTI per records and is was reportedly on antibiotics from the shelter
UA was infected on 09/07 with E. Coli and Klebsiella, tx with oral abx at SNF. Will order repeat UA
-No evidence of acute infection here.
#Coarse expiratory wheezes concerning for upper airway narrowing versus retained secretions
-Patient having increasing coarse breath sounds; family says sometimes he becomes like that and is given Prednisone
-History of COPD? History of Asthma? Family not sure.
-Pulmonary toilet ordered including Mucinex, Inhalational Saline, Duonebs, Pulmicort, Incentive Spirometer, Acapella
-No further IV Solumedrol if needed due to DM
-Continue aspiration precautions
-Speech evaluation
-Chest x-ray with extremely low lung volumes and no acute cardiopulmonary process.
#Recent Stroke
-Continue aspirin statin (high intensity) and Eliquis
#Coarse breath sounds without hypoxia
-Did not suspect his asthma exacerbation but cannot rule out aspiration. No signs of infection
-Per hospitalist discharge summary from July 2022, patient had wheezing and SOB at that time, was given IV steroids, wheezing resolved and he was discharged
-ABG from 09/18/24 showed: 7.36/50/91/28.2 -- suspected chronic compensated respiratory acidosis from obesity, stroke, sleep apnea
-Home PRN bronchodilators ordered
#History of Dementia with Agitation
#History of Worsening lower extremity edema
-See July 2022 Discharge Summary
-Was supposed to get cardiac work-up outpatient
#Type 2 diabetes mellitus
-Holding all Insulin given symptomatic hypoglycemia
#Paroxysmal atrial fibrillation
-Continue Metoprolol and Eliquis
#Chronic thrombocytopenia with anemia
-Monitor CBC
#Essential hypertension
-Continue beta saji
#Hyperlipidemia
-Continue Lipitor
#Coronary artery disease status post cardiac cath in 2008
-Continue beta saji, Eliquis and statin
#Gastroesophageal reflux disease
-Continue home Pepcid
#Chronic ambulatory dysfunction
#Depression
-Continue home Escitalopram
#Benign prostatic hyperplasia
-Continue home Tamsulosin
#History of prostate cancer
#Exceedingly hard of hearing
DVT Prophylaxis: Eliquis
CODE STATUS: DNR and DNI (confirmed on 09/19/24 by patient's son Chago)
reviewed with son, Chago (POA) by phone >15 minutes
Anticipated Discharge: 24 - 48 hours
Subjective/Interval History
-
Date of Service: September 21, 2024
Much more alert today, sitting in chair
Objective Data
-
Labs:
Laboratory Results
09/21/24
06:05
WBC 5.5
Hgb 12.0 L
Hct 35.2 L
Plt Count 144
Sodium 135
Potassium 4.3
Chloride 104
Carbon Dioxide 28
BUN 16
Creatinine 0.8
Glucose 227 H
Calcium 9.1
Vital Signs:
Vital Signs
Temp Pulse Resp BP Pulse Ox
98.2 F 79 22 139/65 96
09/21/24 07:00 09/21/24 07:21 09/21/24 07:21 09/21/24 07:00 09/21/24 07:21
I&O
09/20/24 09/21/24 09/22/24
06:59 06:59 06:59
Intake Total 400 / 400
Balance 400 / 400
Review of Systems
-
History Source: Patient and Family (reviewed with sonChago by phone (POA))
Constitutional: Denies Fever
Respiratory: Reports Cough (chronic)
Cardiac: Denies Chest Pain
Abdomen/GI: Reports No Symptoms
Musculoskeletal: Reports Joint Pain (chronic arthritis)
Physical Exam
-
General: Well Developed, Well Nourished and No Apparent Distress
HEENT: Atraumatic, Moist Mucous Membranes and Hearing Impaired (major factor)
Respiratory: Wheezes (coarse wheeze (as per son, this is chronic), moving air better today)
Cardiac: Regular Rhythm and S1/S2
GI: Nontender and Nondistended
Musculoskeletal: No Clubbing, No Cyanosis and No Edema
Neuro: Awake, Alert and Oriented (answering basic questions, much more alert)
[2024-09-21 12:35] LABS: Glucose - Point of Care 274 mg/dl (70-99)
[2024-09-21] MEDS: NOVOLOG FLEXPEN-LOW RESISTANCE 3 UNITS SC (13:04)
[2024-09-21 15:25] LABS: Urine Albumin Negative (Neg - Trace); Urine Bilirubin Negative (Negative); Urine Character Clear (Clear); Urine Color Yellow; Urine Glucose 4+ (Negative); Urine Ketone Negative (Negative); Urine Leukocyte Negative (Negative); Urine Nitrite Negative (Negative); Urine Occult Blood Negative (Negative); Urine Urobilinogen Negative (Neg - 1+)
[2024-09-21 15:34] VITALS: BP 131/96
[2024-09-21 16:57] LABS: Glucose - Point of Care 317 mg/dl (70-99)
[2024-09-21] MEDS: NOVOLOG FLEXPEN-LOW RESISTANCE 4 UNITS SC (17:07)
[2024-09-21] MEDS: LIPITOR 40 MG PO (17:10)
[2024-09-21] MEDS: PEPCID 20 MG PO (19:49)
[2024-09-21 20:59] LABS: Glucose - Point of Care 260 mg/dl (70-99)
[2024-09-21] MEDS: DESENEX/MITRAZOL/ZEASORB 1 APPLIC TOPICAL (23:03)
[2024-09-21] MEDS: LANTUS 0.05 UNITS SC (23:04)
[2024-09-21 23:54] VITALS: BP 146/88
[2024-09-22] MEDS: DUONEB INH (02:25)
[2024-09-22 06:42] LABS: Hematocrit 36.2 % (39.0-52.0); Hemoglobin 12.4 g/dL (13.0-18.0); Mean Corp Hgb Conc. 34.3 g/dL (33.0-37.0); Mean Corpuscular Hgb 32.5 pg (27.0-31.0); Mean Corpuscular Volume 94.8 fL (80.0-94.0); Mean Platelet Volume 9.7 fL (7.4-10.4); Platelet Count 144 10^3/uL (130-400); Red Blood Cell Count 3.82 10^6/uL (4.70-6.10); Red Cell Dist. Width 12.6 % (11.5-14.5); White Blood Cell Count 5.9 10^3/uL (4.8-10.8)
[2024-09-22 07:01] LABS: Blood Urea Nitrogen 14 mg/dl (9-20); Calcium 9.1 mg/dl (8.4-10.2); Carbon Dioxide 27 mmol/L (22-30); Chloride 105 mmol/L (98-107); Estimated Creatinine Clearance 80 ml/min; Glucose 232 mg/dl (70-99); Potassium 4.2 mmol/L (3.5-5.1); Sodium 135 mmol/L (135-145); eGFR > 60.00
[2024-09-22 07:29] VITALS: BP 160/88
[2024-09-22] MEDS: MUCINEX 600 MG PO (07:36)
[2024-09-22] MEDS: TOPROL XL 25 MG PO (07:36)
[2024-09-22] MEDS: NOVOLOG FLEXPEN-LOW RESISTANCE 2 UNITS SC (07:36)
[2024-09-22] MEDS: VITAMIN B1 100 MG PO (07:36)
[2024-09-22] MEDS: FLOMAX 0.8 MG PO (07:36)
[2024-09-22] MEDS: ELIQUIS 5 MG PO (07:36)
[2024-09-22] MEDS: LEXAPRO 10 MG PO (07:36)
[2024-09-22] MEDS: DESENEX/MITRAZOL/ZEASORB 1 APPLIC TOPICAL (07:37)
[2024-09-22] MEDS: PULMICORT 0.25 MG INH (07:42)
[2024-09-22] MEDS: DUONEB 3 ML INH ×2 (07:42→15:55)
[2024-09-22 07:59] LABS: Glucose - Point of Care 225 mg/dl (70-99)
--- NOTE | 2024-09-22 09:41 | PTCARENOTE ---
pt alert very chinik. does follow commands and answer questions
--- NOTE | 2024-09-22 10:52 | CM ---
MD indicated pt ready for discharge.
Spoke with pt he reauested to return to [facility].
Spoke with [facility] and floor nurse they accepted him back.
Spoke with Jose Antonio son [phone] Reviewed IMM he agrees with dc today.
Son agree with ambulance .
As per [facility] he is non ambulatory and uses [facility].
[facility]
report [phone]
fax [phone]
PLAN return to [facility]
[2024-09-22 12:38] LABS: Glucose - Point of Care 307 mg/dl (70-99)
[2024-09-22] MEDS: NOVOLOG FLEXPEN-LOW RESISTANCE 4 UNITS SC (12:43)
--- NOTE | 2024-09-22 15:53 | DOWNTIME ---
There was a [employer] Client [employer]icer Supervisor Downtime on 09/22/2024 from 1230 to 09/22/2024 at 1550. Downtime documentation of patient's care, including medication administrations, has been reconciled in the electronic record per guidelines. Refer to the
patient's paper chart under the miscellaneous tab to see printed paper medication records and downtime forms.
[2024-09-22 15:56] VITALS: BP 143/83
--- NOTE | 2024-09-22 16:03 | W.PN.HOSP.TC ---
Addendum entered and electronically signed by Valentín Clinton MD 09/23/24 18:02:
encephalopathy was acute metabolic encephalopathy
Original Note:
Today's Communication/Plan
-
dc to [facility]
Assessment / Plan
Assessment / Plan
Assessment/Plan
84-year-old male with past medical history of atrial fibrillation on Eliquis, prior TIA, hypertension, hyperlipidemia, CAD, AV block status post pacemaker, GERD, unspecified bronchospasticity, insulin-dependent diabetes, morbid obesity, evaluated by
neurology and ultimately sent home on his current medications now brought to the emergency department by EMS for unresponsiveness. Per record patient was found unresponsive by longterm staff during rounds at the longterm. His blood sugar
was noted to be in the upper 40s. He was given IM glucagon x 3 and oral glucose. Blood glucose levels increased from 49 to 70. Did not note any seizure activity. Despite the rise in blood sugar patient remained obtunded for extended period. In
the ER at the time of admission, patient was arousable for me and attempt to follow commands. He was able to squeeze the admitting physician's hands, open his eyes and tried to open his mouth. There was no facial droop. There was a left frontal
head contusion. No acute intracranial bleed, mass or mass effect in imaging. He had recently suffered a new/subacute right frontal stroke with new-onset simple partial seizure (probably due to new acute/subacute right frontal stroke) noted 4 days
prior to presentation. He was discharged home on his Eliquis and Lipitor and neurologist recommended no antiepileptic drugs unless the seizures were frequent or bothersome. Due to his his age and poor functional status, he was determined not to be
a good candidate for carotid revascularization, therefore carotid imaging was not needed.
In the emergency department he had a blood pressure of 122/54, pulse rate of 71 with oxygen saturation of 95% on room air. ECG shows normal sinus rhythm at a rate of [address] or T wave changes. Chest x-ray showed no acute
infiltrates. CBC was unremarkable. Electrolytes BUN/creatinine were normal. Glucose was 152. CT of the head was unchanged from prior showing no acute intracranial hemorrhage, mass or mass effect. He had white matter small vessel ischemic disease.
#Somnolence/obtundation with hypoglycemia
resolved
#Symptomatic Seizure from Hypoglycemia
#Recent Seizure (prior to this hospital presentation) - simple partial seizures thought secondary to recent subacute stroke
-As of 09/19/24 afternoon, patient's mental status has improved DRAMATICALLY
-Suspected seizure from hypoglycemia -- but per neurology, he is not currently in Status Epilepticus
-Transferred to IMU given level of consciousness/lethargy initially
Doing well as of 09/20, was transferred to Med/Surg
-ABG from 09/18/24 showed: 7.36/50/91/28.2 -- suspected chronic compensated respiratory acidosis from recent stroke, possible sleep apnea, morbid obesity
-Head of bed at 30 degrees normal
-Monitor for any repeat seizure-like activity.
-stop Glimepiride
start sliding scale insulin
will follow glu for now and will resume low dose Lantus starting tonight
Unclear if insulin listed on transfer is accurate, requested nursing call SNF ([facility]) to clarify
glu in 220-296 range
-stopped D5 1/2 normal saline
Pt just back from EEG - no evidence of epileptiform activity
Acute process was most likely prolonged hypoglycemia and according to son Chago, as of yesterday afternoon, mentation is back to baseline
will adjust diabetic meds and dc to SNF now
#UTI per records and is was reportedly on antibiotics from the longterm
UA was infected on 09/07 with E. Coli and Klebsiella, tx with oral abx at SNF. Will order repeat UA
-No evidence of acute infection here.
#Coarse expiratory wheezes concerning for upper airway narrowing versus retained secretions
-Patient having increasing coarse breath sounds; family says sometimes he becomes like that and is given Prednisone
-History of COPD? History of Asthma? Family not sure.
-Pulmonary toilet ordered including Mucinex, Inhalational Saline, Duonebs, Pulmicort, Incentive Spirometer, Acapella
-No further IV Solumedrol if needed due to DM
-Continue aspiration precautions
-Speech evaluation
-Chest x-ray with extremely low lung volumes and no acute cardiopulmonary process.
#Recent Stroke
-Continue aspirin statin (high intensity) and Eliquis
#Coarse breath sounds without hypoxia
-Did not suspect his asthma exacerbation but cannot rule out aspiration. No signs of infection
-Per hospitalist discharge summary from July 2022, patient had wheezing and SOB at that time, was given IV steroids, wheezing resolved and he was discharged
-ABG from 09/18/24 showed: 7.36/50/91/28.2 -- suspected chronic compensated respiratory acidosis from obesity, stroke, sleep apnea
-Home PRN bronchodilators ordered
#History of Dementia with Agitation
#History of Worsening lower extremity edema
-See July 2022 Discharge Summary
-Was supposed to get cardiac work-up outpatient
#Type 2 diabetes mellitus
-Holding all Insulin given symptomatic hypoglycemia
#Paroxysmal atrial fibrillation
-Continue Metoprolol and Eliquis
#Chronic thrombocytopenia with anemia
-Monitor CBC
#Essential hypertension
-Continue beta saji
#Hyperlipidemia
-Continue Lipitor
#Coronary artery disease status post cardiac cath in 2008
-Continue beta saji, Eliquis and statin
#Gastroesophageal reflux disease
-Continue home Pepcid
#Chronic ambulatory dysfunction
#Depression
-Continue home Escitalopram
#Benign prostatic hyperplasia
-Continue home Tamsulosin
#History of prostate cancer
#Exceedingly hard of hearing
DVT Prophylaxis: Eliquis
CODE STATUS: DNR and DNI (confirmed on 09/19/24 by patient's son Chago)
see dictated noteMore than 30 minutes spent in discharge including
Final examination of the patient
Summarizing hospital stay
Instructions for continuing care to all relevant caregivers
Preparation of discharge records, prescriptions, and referral forms
Total time spent (in minutes): 45 minutes
Anticipated Discharge: Today
Subjective/Interval History
-
Date of Service: September 22, 2024
Alert, as per son Chago (POA) pt mentation is at baseline
Objective Data
-
Labs:
Laboratory Results
09/22/24
05:49
WBC 5.9
Hgb 12.4 L
Hct 36.2 L
Plt Count 144
Sodium 135
Potassium 4.2
Chloride 105
Carbon Dioxide 27
BUN 14
Creatinine 0.9
Glucose 232 H
Calcium 9.1
Vital Signs:
Vital Signs
Temp Pulse Resp BP Pulse Ox
98.1 F 75 22 143/83 95
09/22/24 15:56 09/22/24 15:56 09/22/24 15:56 09/22/24 15:56 09/22/24 15:56
I&O
09/21/24 09/22/24 09/23/24
06:59 06:59 06:59
Intake Total 400 / 400 240 / 240
Output Total 100 / 100
Balance 400 / 400 140 / 140
Review of Systems
-
History Source: Patient and Coordinated Provider
Constitutional: Reports No Symptoms
EENT: Reports No Symptoms Reported
Respiratory: Reports Wheezing (chronic wheeze)
Cardiac: Reports No Symptoms
Abdomen/GI: Reports No Symptoms
Physical Exam
-
General: Well Developed, Well Nourished and No Apparent Distress
HEENT: Atraumatic, Moist Mucous Membranes and Hearing Impaired (major factor)
Respiratory: Wheezes (coarse wheeze (as per son, this is chronic), moving air better today)
Cardiac: Regular Rhythm and S1/S2
GI: Nontender and Nondistended
Musculoskeletal: No Clubbing, No Cyanosis and No Edema
Neuro: Awake, Alert and Oriented (answering basic questions, much more alert)
--- NOTE | 2024-09-22 16:20 | W.DS.TRANS ---
DC Summary - Desulfurizer Machine
-
Discharge Instructions:
Discharge Diagnosis/Procedures Hypoglycemia with acute encephalopathy
Diet Diabetic, Carb Controlled
Activity With assistance
Driving Restrictions No driving
Bathing Restrictions None
Blood Work CBC, CMP in 1 week. Accucheck glu ac and qhs
Instructions:
Stand-Alone Forms:
Changes to Home Medications: Yes
Discharge Medications:
DC Medications w/original date entered in [employer]
tamsulosin 0.4 mg capsule 0.8 mg PO DAILY Urinary issue 08/10/18
atorvastatin 40 mg tablet 40 mg PO DAILY@1830 High cholesterol 07/20/20
metoprolol succinate 25 mg tablet,extended release 24 hr 25 mg PO DAILY Heart disease/condition 07/20/20
acetaminophen 325 mg tablet 650 mg PO Q4HPRN PRN mild pain/temp> 100.4F 07/25/22
apixaban 5 mg tablet (Eliquis) 5 mg PO BID Blood clot prevention/tx 07/25/22
bisacodyl 10 mg rectal suppository (Dulcolax (bisacodyl)) 10 mg [place] DAILYPRN PRN when no bm/mom ineffective 07/25/22
famotidine 20 mg tablet 20 mg PO HS Gastrointestinal issue 07/25/22
magnesium hydroxide 400 mg/5 mL oral suspension (Milk of Magnesia) 2,400 mg PO HSPRN PRN lack of bm 07/25/22
cholecalciferol (vitamin D3) 250 mcg (10,000 unit) tablet 1,500 mcg PO QMONTH Supplement 05/04/24
escitalopram oxalate 10 mg tablet 10 mg PO DAILY Depression 05/04/24
metformin 500 mg tablet 500 mg PO BID Diabetes 05/04/24
Probiotic 250 mg PO DAILY Supplement 09/19/24
albuterol sulfate 90 mcg/actuation aerosol inhaler 2 puff inhalation Q4H PRN sob/wheezing 09/19/24
glucagon HCl 1 mg solution for injection (Glucagon (HCl) Emergency Kit) 1 mg IM DAILY PRN hypoglycemia 09/19/24
insulin aspart U-100 100 unit/mL (3 mL) subcutaneous pen 0 - 12 sliding scale dose SC DIRECTED Diabetes 09/19/24
ipratropium 0.5 mg-albuterol 3 mg (2.5 mg base)/3 mL nebulization soln 3 ml inhalation Q6H PRN wheezing 09/19/24
insulin glargine 100 unit/mL subcutaneous solution (Lantus U-100 Insulin) 10 unit (0.1 mL) SC QPM #10 mL 09/22/24
Home Medication Changes
stop standing orders for bid short acting insulin
start low dose Lantus and titrate based on glucose readings
stop Glimepiride
Based on glucose readings/insulin needs can reintroduce short acting insulin prior to meals
Pending Results: No
[2024-09-22 16:37] LABS: Glucose - Point of Care 293 mg/dl (70-99)
[2024-09-22] MEDS: NOVOLOG FLEXPEN-LOW RESISTANCE 3 UNITS SC (16:40)
--- NOTE | 2024-09-23 13:44 | PN.CDI ---
CDI
- -
CDI:
Physician Documentation Request
Admit Date: 09/20/24 17:20
Dear Doctor Mary Beth,
Please review the following and provide your response in the progress notes.
Clinical Indicators:
Pt admitted with Somnolence/obtundation with hypoglycemia.
09/19 Progress Note: 'As of 09/19/24 afternoon, patient's mental status has improved DRAMATICALLY'
09/19 Discharge Summary: 'Hypoglycemia with acute encephalopathy '
'FINAL DIAGNOSES:
1. Acute encephalopathy with patient unresponsive.'
Please specify the known or suspected type of the documented encephalopathy.
Metabolic
Toxic
Toxic metabolic
Other
Use of terms such as suspected, likely, concern for, or probable (associated with a specific diagnosis that is being evaluated, monitored, or treated as if it exists) are acceptable and can be coded in the inpatient setting, when documented at the
time of discharge.
Thank you,
Sachi Garcia RN, BSN
CDI Specialist
[facility]
Please use your independent medical judgment in providing your response.
== END 2024-09-22 17:00 | DRG 637 ==
LOC: 4 EAST ACU 17:20
PROVIDERS: Hospitalist; ADMITTING PHYSICIAN Internal Medicine; ATTENDING PHYSICIAN Internal Medicine; CONSULT PHYSICIAN Internal Medicine; CONSULT PHYSICIAN Psychiatry & Neurology Clinical Neurophysiology; EMERGENCY PHYSICIAN Emergency Medicine
DX: E11.649 Type 2 diabetes mellitus with hypoglycemia without coma (principal); G93.41 Metabolic encephalopathy; F03.911 Unspecified dementia, unspecified severity, with agitation; G93.40 Encephalopathy, unspecified; Z68.41 Body mass index [BMI] 40.0-44.9, adult; I48.0 Paroxysmal atrial fibrillation; R09.02 Hypoxemia; E78.00 Pure hypercholesterolemia, unspecified; I25.10 Atherosclerotic heart disease of native coronary artery without angina pectoris; I10 Essential (primary) hypertension; J44.9 Chronic obstructive pulmonary disease, unspecified; R56.9 Unspecified convulsions; E66.01 Morbid (severe) obesity due to excess calories; N40.0 Benign prostatic hyperplasia without lower urinary tract symptoms; Z66 Do not resuscitate; D69.6 Thrombocytopenia, unspecified; D64.9 Anemia, unspecified; R06.89 Other abnormalities of breathing; R26.2 Difficulty in walking, not elsewhere classified; I69.398 Other sequelae of cerebral infarction; I69.320 Aphasia following cerebral infarction; Z79.01 Long term (current) use of anticoagulants; Z79.899 Other long term (current) drug therapy; Z87.891 Personal history of nicotine dependence; Z95.0 Presence of cardiac pacemaker; Z85.46 Personal history of malignant neoplasm of prostate; Z79.82 Long term (current) use of aspirin; Z79.4 Long term (current) use of insulin; Z51.5 Encounter for palliative care
CPT/HCPCS: 70450; 71045; 80048; 80053; 81003; 82805; 82962; 83880; 85025; 85027; 87070; 92610; 93005; 94640; 95816; 99285

== ENCOUNTER 2024-09-24 13:54 | Inpatient (IN) | payer MEDICARE, OTHER, SELFPAY ==
[2024-09-24] VITALS (9 sets, daily range): BP systolic 110–143; BP diastolic 56–92; BMI 52.4
[2024-09-24] MEDS: ATROVENT NEBULES 1 MG INH (11:22)
[2024-09-24] MEDS: VENTOLIN NEBULES 7.5 MG INH (11:23)
--- NOTE | 2024-09-24 11:24 | ED.GENMED ---
History of Present Illness
General
Chief Complaint: Breathing Problem
Source: patient
Exam Limitations: clinical condition
Time Seen by Provider: 09/24/24 11:12
History of Present Illness
History of Present Illness:
See MDM
Past History
Past History
ED Past Medical History: CAD, HTN, Hypercholesterolemia, IDDM and Other (Arthritis, Bilateral hearing aids. Vertigo)
ED Past Surgical History: Cardiac (Stents)
Patient has exhibited threatening behavior?: No
PSI?: No
Social History
Tobacco: Former smoker
Alcohol: Occasional
Personal:
Living: with family
Employment: Retired
Family History
Family History: Other (Mother with thyroid cancer, father with throat cancer)
Phy Exam
Physical Exam
Physical Exam:
See MDM
Scores
Heart Failure Risk
Heart Failure Risk Score: Not Applicable
Course
Orders/Labs/Results
Orders:
Orders
09/24/24 11:10
Electrocardiogram (*1) Urgent
Reason for Study: Other
Other Reason for Exam: Respiratory Distress
EKG- Treatment ONCE
O2 Therapy [RESP] Urgent
Titrate/Wean O2 to maintain O2 sat greater than (%): 93
Special Instructions: TO MAINTAIN CONTINUOUS O2 SATS >/= 93%
09/24/24 11:17
Albuterol Sulfate [Ventolin Nebules] 7.5 mg INH R NOW STA
Dexamethasone Sod Phosphate [Decadron] 10 mg IV NOW STA
Ipratropium Nebs [Atrovent Nebules] 1 mg INH R NOW STA
09/24/24 11:18
Basic Metabolic Panel Urgent
Complete Blood Count/With Diff Urgent
NT-proBNP Urgent
Troponin I Urgent
09/24/24 11:50
CR Chest Portable - 1 View Urgent
Comment:
Reason For Exam: sob wheezing
Reason Study Needs to be Portable: Unable to Transport
09/24/24 12:40
ABG [Arterial Blood Gas] Urgent
%Oxygen/Room Air: room
Abnormal Lab Results
09/24/24
11:18
RBC 3.96 L 10^6/uL
(4.70-6.10)
Hct 38.2 L %
(39.0-52.0)
MCV 96.5 H fL
(80.0-94.0)
MCH 33.3 H pg
(27.0-31.0)
Abs Immat Gran (auto) 0.1 H 10^3/uL
(0-0.05)
Absolute Monos (auto) 0.8 H 10^3/uL
(0.1-0.6)
Immature Gran % 0.6 H %
(0-0.5)
Lymphocytes % 17.0 L %
(20.5-51.1)
Sodium 132 L mmol/L
(135-145)
Glucose 338 H mg/dl
(70-99)
09/24/24 11:18
09/24/24 11:18
Vital Signs
Initial and Last Documented VS:
Initial Vital Signs
Pulse Resp BP Pulse Ox
87 28 143/83 97
09/24/24 11:08 09/24/24 11:08 09/24/24 11:08 09/24/24 11:08
Last Documented Vital Signs
Temp Pulse Resp BP Pulse Ox
98.2 F 83 21 143/83 96
09/24/24 11:11 09/24/24 11:30 09/24/24 11:30 09/24/24 11:11 09/24/24 11:30
MDM/Problems Addressed
Differential Diagnosis Includes:
HPI and MDM Narrative:
84-year-old male presenting by EMS for evaluation of shortness of breath. Apparently, patient was hypoxic overnight with evidence of central cyanosis. On arrival, patient is tachypneic with shallow breath sounds. He has significant wheezing
throughout. EMS did provide breathing treatment prior to arrival and patient states there has been some improvement. Patient does have conversational dyspnea. Will treat as COPD exacerbation versus bronchitis. Patient started on hour-long
nebulizer treatment and given IV steroids immediately.
Prior records indicate he was just discharged a few days ago. He was admitted for altered mental status which was believed to be related to hypoglycemia
Physical exam
General: Uncomfortable, mildly toxic appearing
HEENT: protecting airway
Neck: appears supple
CV: No evidence of cyanosis
Resp: Mild Accessory muscle use. Tachypnea. Diffuse wheezing throughout
Abd: Non-distended.
Extremities: Dependent edema in both legs
Neuro: alert
Psych: Mildly anxious
Skin: Intact
Problems Addressed including Acute and Chronic Conditions affecting care:
1. Acute respiratory distress
Acuity: acute
Prognosis: unstable
Details: Potentially in setting of COPD exacerbation. Patient started on hour-long nebulizer treatment and IV steroids. Will obtain x-ray given recent admission to the hospital to rule out any evidence of pneumonia
Updates
After hour-long nebulizer treatment, patient states he is feeling better. I did question his sleepiness to his son. His son seems to believe that this is baseline. Will obtain ABG to ensure that he is not hypercapnic
Differential Diagnosis (but not limited to): Aspiration pneumonia, COPD exacerbation, pneumonia
Testing considered: D-dimer
Drug therapy (if applicable): OTC meds, please see d/c instruction regarding Rx drugs
Amount and/or Complexity of Data Reviewed
Clinical info obtained from: Patient and son
External data reviewed: N/A
Labs I independently reviewed (but not limited to): Hyperglycemia
Radiology: X-ray independently reviewed: Chest x-ray clear
Pulse Ox: not hypoxic
EKG independently reviewed: Sinus rhythm, normal axis, no STEMI
Central Office Mechanic: Sinus rhythm
Critical Care: The high probability of a clinically significant, sudden or life threatening deterioration of the pulmonary system(s) required my full and direct attention, intervention and personal management. The aggregate critical care time was 33
minutes. This time is in addition to time spent performing reported procedures but includes the following:
[x] Data Review and interpretation
[x] Patient assessment and monitoring of vital signs
[x] Documentation
[x] Medication orders and management
Risk of Complication:
Social Determinants of health: Good social support
Discussed with other providers: Hospitalist
Escalation of Care includes Admit/Obs: Given the respiratory distress, will admit
Occasional wrong word or 'sound a like' substitutions may have occurred due to the inherent limitations of voice recognition software. Read the chart carefully and recognize, using context, where substitutions have occurred.
*Critical Care Note
Total Time (30-74mins, 75-104mins- exclusive of procedures): 33 min
ED Attending Note
-
Portions of this chart may have been created with voice recognition software.� Occasional wrong word or��sound alike� substitutions may have occurred due to the inherent limitations of voice recognition software.
Discharge Plan
Departure
Patient Disposition: Admit
Date of Disposition: 09/24/24
Time of Disposition: 12:46
Admit to: Med/Surg
Presentation/result/management discussed w/ accepting MD/DO: Hospitalist
Discharge Problem:
Acute exacerbation of chronic obstructive pulmonary disease, Acute hyperglycemia
Prescriptions:
No Action
tamsulosin 0.4 MG capsule
0.8 mg PO QPM
atorvastatin 40 MG tablet
40 mg PO QPM
metoprolol succinate 25 MG tablet extended release 24 hr
25 mg PO DAILY
magnesium hydroxide [Milk of Magnesia] 400 mg/5 mL Suspension
2,400 mg PO HSPRN PRN (Reason: constipation)
bisacodyl [Dulcolax (bisacodyl)] 10 mg Suppository
10 mg [place] DAILYPRN PRN (Reason: when no bm/mom ineffective)
acetaminophen 325 MG tablet
650 mg PO Q4HPRN PRN (Reason: mild pain/temp> 100.4F)
famotidine 20 MG tablet
20 mg PO HS
Eliquis 5 MG tablet
5 mg PO BID
metformin 500 mg Tablet
500 mg PO BID
escitalopram oxalate 10 mg Tablet
10 mg PO DAILY
cholecalciferol (vitamin D3) 250 mcg (10,000 unit) Tablet
250 mcg PO QMONTH
Rx Instructions:
3rd fri
ipratropium-albuterol 0.5 mg-3 mg(2.5 mg base)/3 mL Solution For Nebulization
3 ml INHALATION R Q6HPRN PRN (Reason: wheezing)
insulin aspart U-100 100 unit/mL (3 mL) Insulin Pen
0 - 12 sliding scale dose SC DIRECTED
Rx Instructions:
71-150=0 units; 151-200=2 units; 201-250=4 units; 251-300=6 units; 301-350=8 units; 351-400=10 units; >400 =12 units call MD
albuterol sulfate 90 mcg/actuation HFA aerosol inhaler
2 puff inhalation R Q4HPRN PRN (Reason: sob/wheezing)
insulin glargine [Lantus U-100 Insulin] 100 unit/mL solution
10 unit SC HS
Referrals:
Jeffry Yang DO [Family Provider, Family Practice]
Interventions
Interventions:
*Risk Screen - Suicide Last Done: 09/24/24 11:11
*General Assessment Last Done: 09/24/24 11:11
*Neglect/Abuse Screening Last Done: 09/24/24 11:11
*ED- Fall Risk Assessment Last Done: 09/24/24 11:11
*ED COVID-19 Vaccine History Last Done: 09/24/24 11:11
ED- Cardiac Assessment Last Done: 09/24/24 11:40
ED- Pulmonary Assessment Last Done: 09/24/24 11:40
Discharge Date and Time
Print Language: UPPER SORBIAN
[2024-09-24] MEDS: DECADRON 10 MG IV (11:27)
[2024-09-24 11:29] LABS: % Basophils 0.3 % (0-2); % Eosinophils 2.9 % (0-6); % Immature Granulocytes 0.6 % (0-0.5); % Neutrophils 70.2 % (42.2-75.2); Absolute Eosinophils 0.3 10^3/uL (0-0.7); Absolute Immature Granulocytes 0.1 10^3/uL (0-0.05); Absolute Lymphocytes 1.5 10^3/uL (1.2-3.4); Absolute Monocytes 0.8 10^3/uL (0.1-0.6); Absolute Neutrophils 6.4 10^3/uL (1.4-6.5); Hematocrit 38.2 % (39.0-52.0); Hemoglobin 13.2 g/dL (13.0-18.0); Mean Corp Hgb Conc. 34.6 g/dL (33.0-37.0); Mean Corpuscular Hgb 33.3 pg (27.0-31.0); Mean Corpuscular Volume 96.5 fL (80.0-94.0); Mean Platelet Volume 9.9 fL (7.4-10.4); Nucleated Red Blood Cells % 0 % (-); Platelet Count 147 10^3/uL (130-400); Red Blood Cell Count 3.96 10^6/uL (4.70-6.10); Red Cell Dist. Width 12.5 % (11.5-14.5); White Blood Cell Count 9.1 10^3/uL (4.8-10.8)
[2024-09-24 11:50] LABS: Blood Urea Nitrogen 18 mg/dl (9-20); Carbon Dioxide 28 mmol/L (22-30); Chloride 102 mmol/L (98-107); Glucose 338 mg/dl (70-99); Sodium 132 mmol/L (135-145); eGFR > 60.00
[2024-09-24 11:52] LABS: NT-proBNP 336 pg/ml; Troponin I < 0.012 ng/ml
--- NOTE | 2024-09-24 13:02 | HPS.HSE ---
Family Physician
-
Family Physician: Jeffry Yang DO
Chief Complaint
-
Wheezing
History of Present Illness
Patient is a 84 y/o male past medical history of ASCVD, A-Fib, Hypertension, Diabetes with multiple recent hospitalizations for right frontal stroke, and TME/Seizure due to hypoglycemia who presents with wheezing. Patient is extremely hard of
hearing thus additional history is obtained from patient's son at the bedside. During patient recent hospitalization he was treating for likely COPD exacerbation with Pulmicort and DuoNeb. Patient developed worsening wheezing and was noted by staff
the facility to have central cyanosis. Patient arrived to the emergency department tachypneic with wheezing and mild respiratory distress. Upon my evaluation patient appears slightly improved but continue with audible wheezing.
Medical History
Past Medical History
Past Medical History: Reports Other
Additional Past Medical History:
Right Frontal Stroke
Coronary Artery Disease
Paroxysmal Atrial Fibrillation
Essential Hypertension
Hyperlipidemia
Diabetes Mellitus, Type II
COPD
Chronic Anemia / Thrombocytopenia
Dementia
Anxiety / Depression
Migraine Headaches
BPH
Prostate Cancer
Past Surgical History: Reports Other
Additional Past Surgical History:
Bilateral Knee Arthroscopy
Right Knee Replacement
Hemorrhoidectomy
Social History
Tobacco: Former Smoker (Long time smoker per family, but quit about 30 years ago)
Living: Half-Way
Family History
Family History: Not pertinent
Allergies / Home Medications
Allergies reflects when Allergies were last updated in [employer].
Home Medications with original date entered in [employer]
Allergy/Medication List:
Allergies
Allergy/AdvReac Type Severity Reaction Status Date / Time
No Known Allergies Allergy Verified 09/24/24 11:08
Home Medications
tamsulosin 0.4 mg capsule 0.8 mg PO QPM Urinary issue 08/10/18
atorvastatin 40 mg tablet 40 mg PO QPM High cholesterol 07/20/20
metoprolol succinate 25 mg tablet,extended release 24 hr 25 mg PO DAILY Heart disease/condition 07/20/20
acetaminophen 325 mg tablet 650 mg PO Q4HPRN PRN mild pain/temp> 100.4F 07/25/22
apixaban 5 mg tablet (Eliquis) 5 mg PO BID Blood clot prevention/tx 07/25/22
bisacodyl 10 mg rectal suppository (Dulcolax (bisacodyl)) 10 mg [place] DAILYPRN PRN when no bm/mom ineffective 07/25/22
famotidine 20 mg tablet 20 mg PO HS Gastrointestinal issue 07/25/22
magnesium hydroxide 400 mg/5 mL oral suspension (Milk of Magnesia) 2,400 mg PO HSPRN PRN constipation 07/25/22
cholecalciferol (vitamin D3) 250 mcg (10,000 unit) tablet 250 mcg PO QMONTH Supplement 05/04/24
escitalopram oxalate 10 mg tablet 10 mg PO DAILY Depression 05/04/24
metformin 500 mg tablet 500 mg PO BID Diabetes 05/04/24
albuterol sulfate 90 mcg/actuation aerosol inhaler 2 puff inhalation R Q4HPRN PRN sob/wheezing 09/19/24
insulin aspart U-100 100 unit/mL (3 mL) subcutaneous pen 0 - 12 sliding scale dose SC DIRECTED Diabetes 09/19/24
ipratropium 0.5 mg-albuterol 3 mg (2.5 mg base)/3 mL nebulization soln 3 ml inhalation R Q6HPRN PRN wheezing 09/19/24
insulin glargine 100 unit/mL subcutaneous solution (Lantus U-100 Insulin) 10 unit SC HS 09/24/24
Review of Systems
-
Unable to obtain full review of systems at this time due to: Acuity
Physical Exam
Vital Signs
Vital Signs
Temp Pulse Resp BP Pulse Ox
98.2 F 83 21 143/83 96
09/24/24 11:11 09/24/24 11:30 09/24/24 11:30 09/24/24 11:11 09/24/24 11:30
Physical Exam
General: Well Developed, Respiratory Distress and Morbidly Obese
HEENT: Anicteric and Moist mucous membranes
Respiratory: Wheezes (Diffuse) and Other (Tachypneic )
Cardiac: S1/S2, Regular Rhythm and Tachycardia (Slightly)
GI: Soft and Non Tender
Rectal: Deferred by Provider
Musculoskeletal: No Clubbing and No Cyanosis
Skin: Warm and Dry
Neuro: Awake, Alert and No Motor Deficits
Psych: Calm
Laboratory Results
-
09/24/24 11:18
09/24/24 11:18
Laboratory Results
Total Bilirubin Cancelled 09/24/24 11:18
AST Cancelled 09/24/24 11:18
ALT Cancelled 09/24/24 11:18
Alkaline Phosphatase Cancelled 09/24/24 11:18
Troponin I < 0.012 ng/ml 09/24/24 11:18
Chest X-Ray:
Limited study with low lung volumes. Questionable minimal bibasilar atelectasis/scarring. No areas of alveolar airspace disease. No significant pleural effusions.
Data Reviewed
-
Diagnostic Radiology: Report Reviewed by me
Lab Data: Labs Reviewed by me
Old Records: Reviewed
Impression/Plan
-
Acute COPD Exacerbation
-Resume Pulmicort and DuoNeb QID and PRN
-Resume Decadron 4mg q8H
-Encourage use of incentive spirometer
-Monitor pulse ox - Supplemental oxygen as needed
-Check nocturnal pulse ox
Diabetes Mellitus, Type II
-Sugars currently uncontrolled and likely will continue to trend upwards with addition of steroids
-Glimepiride stopped last admission due to hypoglycemia
-Increase Lantus 15 units HS
-Increase metformin 1000mg BID
-Monitor sugars and continue coverage insulin
Paroxysmal Atrial Fibrillation with Recent Right Frontal Stroke
-Continue Eliquis
-Continue Metoprolol
Essential Hypertension
-Continue metoprolol
Hyperlipidemia
-Continue atorvastatin
Dementia / Anxiety / Depression
-Continue Lexapro
-Prior history of agitation - Monitor for mood/behavior changes during hospitalization
GERD
-Continue famotidine
Chronic Anemia / Thrombocytopenia
-Counts stable
BPH / Prostate Cancer
-Continue Flomax
Morbid Obesity due to Excess Calories
-Affect all aspects of care
-Suspect patient may have underlying ERNESTO - Consider sleep study as outpatient
DVT proph: Eliquis
Code Stats: DNR
--- NOTE | 2024-09-24 13:34 | W.PN.UPDATE ---
Update Note
Progress Note Update
This is an addendum to H&P written by Christine Bermudez on 09/24/2024.� Patient seen and examined dependently with PA.
84-year-old male past medical history of former smoker, likely undiagnosed COPD, Hypoglycemia, BPH, hyperlipidemia, CVA, type 2 diabetes, paroxysmal atrial fibrillation, chronic thrombocytopenia, anemia, essential hypertension, chronic amatory
dysfunction, prostate cancer, hearing loss, prior seizure related to CVA, presenting with shortness of breath and wheezing.
Discharged yesterday after being admitted for unresponsiveness possible seizure likely secondary to hypoglycemia.� He was treated with dextrose infusion and glimepiride was stopped.� During hospitalization there was concern for aspiration and he had
speech and swallow evaluation which cleared him for regular diet.
Diffuse wheezing on examination bilaterally.��
Labs show blood sugar of 338.
Patient with likely COPD exacerbation. DuoNebs, dexamethasone 4 mg every 8 hours.� Blood sugar currently in the 300s and patient is going to start steroids again.� Increase metformin to 1000 BID.�Increase Lantus from 10 to 15 units.� Moderate
sliding scale.
Needs outpatient sleep study.�
[2024-09-24 13:40] LABS: B.E. 2.2 mmol/L; HCO3 27.3 mmol/L (21-28); O2 Saturation % 97.7 % (94-98); PCO2 43 mmHg (35-48); PO2 82 mmHg (83-108); pH 7.41 (7.35-7.45)
--- NOTE | 2024-09-24 16:37 | PTCARENOTE ---
Pt received from ED extremely [facility], however hearing aids were not brought to hospital. Pt arousable with tactile stimuli. Spoke w/ daughter, pt unable to hear anyone without hearing aids in place. Bruising and lump noted to face and forehead. Bruise
noted to left lower leg. Left inner buttock with dry patchy area of skin. Able to turn and reposition with instructions. Denies pain .
[2024-09-24] MEDS: DUONEB INH (16:42)
[2024-09-24 16:44] LABS: Glucose - Point of Care 308 mg/dl (70-99)
[2024-09-24] MEDS: NOVOLOG FLEXPEN-MODERATE RESISTANCE 7 UNITS SC (17:30)
[2024-09-24] MEDS: GLUCOPHAGE 1000 MG PO (17:31)
[2024-09-24] MEDS: LIPITOR 40 MG PO (17:36)
[2024-09-24] MEDS: FLOMAX 0.8 MG PO (17:36)
[2024-09-24] MEDS: DECADRON 4 MG IV (20:03)
[2024-09-24] MEDS: ELIQUIS 5 MG PO (20:04)
[2024-09-24] MEDS: MUCINEX 600 MG PO (20:04)
[2024-09-24] MEDS: FLUSH (NSS) 1 FLUSH IV (20:05)
[2024-09-24] MEDS: PULMICORT 0.5 MG INH (20:17)
[2024-09-24] MEDS: DUONEB 3 ML INH (20:17)
[2024-09-24 21:20] LABS: Glucose - Point of Care 285 mg/dl (70-99)
[2024-09-24] MEDS: LANTUS 0.15 UNITS SC (22:04)
[2024-09-24] MEDS: PEPCID 20 MG PO (22:04)
[2024-09-25] MEDS: TYLENOL 650 MG PO (00:34)
[2024-09-25] MEDS: DECADRON 4 MG IV ×3 (04:31→20:38)
[2024-09-25] MEDS: FLUSH (NSS) 1 FLUSH IV ×2 (04:32→20:39)
[2024-09-25 06:00] VITALS: BMI 52.5
[2024-09-25 07:16] LABS: Hematocrit 39.1 % (39.0-52.0); Hemoglobin 13.4 g/dL (13.0-18.0); Mean Corp Hgb Conc. 34.3 g/dL (33.0-37.0); Mean Corpuscular Hgb 32.7 pg (27.0-31.0); Mean Corpuscular Volume 95.4 fL (80.0-94.0); Mean Platelet Volume 10.2 fL (7.4-10.4); Platelet Count 158 10^3/uL (130-400); Red Cell Dist. Width 12.4 % (11.5-14.5); White Blood Cell Count 12.1 10^3/uL (4.8-10.8)
[2024-09-25 07:40] VITALS: BP 166/95
[2024-09-25 07:44] LABS: Blood Urea Nitrogen 23 mg/dl (9-20); Calcium 9.6 mg/dl (8.4-10.2); Carbon Dioxide 25 mmol/L (22-30); Chloride 101 mmol/L (98-107); Estimated Creatinine Clearance 68 ml/min; Glucose 310 mg/dl (70-99); Magnesium 1.6 mg/dl (1.6-2.3); Sodium 135 mmol/L (135-145); eGFR > 60.00
[2024-09-25] MEDS: PULMICORT 0.5 MG INH ×2 (07:54→20:51)
[2024-09-25] MEDS: DUONEB 3 ML INH ×3 (07:55→20:51)
[2024-09-25 08:07] LABS: Glucose - Point of Care 293 mg/dl (70-99)
[2024-09-25] MEDS: GLUCOPHAGE 1000 MG PO ×2 (08:45→17:11)
[2024-09-25] MEDS: TOPROL XL 25 MG PO (08:45)
[2024-09-25] MEDS: DESENEX/MITRAZOL/ZEASORB 1 APPLIC TOPICAL ×2 (08:45→20:40)
[2024-09-25] MEDS: NOVOLOG FLEXPEN-MODERATE RESISTANCE 5 UNITS SC (08:45)
[2024-09-25] MEDS: ELIQUIS 5 MG PO ×2 (08:45→20:41)
[2024-09-25] MEDS: LEXAPRO 10 MG PO (08:45)
[2024-09-25] MEDS: MUCINEX 600 MG PO ×2 (08:45→20:41)
[2024-09-25 09:49] LABS: Glycohemoglobin (HgbA1c) 8.5 % (4.0-5.6)
[2024-09-25 12:22] LABS: Glucose - Point of Care 316 mg/dl (70-99)
[2024-09-25] MEDS: NOVOLOG FLEXPEN-MODERATE RESISTANCE 7 UNITS SC (12:28)
[2024-09-25 15:00] VITALS: BP 131/77
[2024-09-25] MEDS: DUONEB INH (16:04)
[2024-09-25 16:16] VITALS: BP 131/77
[2024-09-25 17:10] LABS: Glucose - Point of Care 323 mg/dl (70-99)
[2024-09-25] MEDS: NOVOLOG FLEXPEN-MODERATE RESISTANCE 9 UNITS SC (17:10)
[2024-09-25] MEDS: LIPITOR 40 MG PO (17:11)
[2024-09-25] MEDS: FLOMAX 0.8 MG PO (17:11)
--- NOTE | 2024-09-25 17:16 | W.PN.HOSP.TC ---
Today's Communication/Plan
-
will request speech reevaluation and Videoswallow
Assessment / Plan
Assessment / Plan
Acute COPD Exacerbation was admitting dx, but the fact that at times his lungs can be clear then sound very rhonchus hours later, would be more consistent with an aspiraiton event
-Resume Pulmicort and DuoNeb QID and PRN
-Resume Decadron 4mg q8H
will begin tapering HIEU because of concern related to his DM
-Encourage use of incentive spirometer
-Monitor pulse ox - Supplemental oxygen as needed
-Check nocturnal pulse ox
Diabetes Mellitus, Type II
-Sugars currently uncontrolled and likely will continue to trend upwards with addition of steroids
-Glimepiride stopped last admission due to hypoglycemia
-Increase Lantus 15 units HS
-Increase metformin 1000mg BID
-Monitor sugars and continue coverage insulin
Paroxysmal Atrial Fibrillation with Recent Right Frontal Stroke
-Continue Eliquis
-Continue Metoprolol
Essential Hypertension
-Continue metoprolol
Hyperlipidemia
-Continue atorvastatin
Dementia / Anxiety / Depression
-Continue Lexapro
-Prior history of agitation - Monitor for mood/behavior changes during hospitalization
GERD
-Continue famotidine
Chronic Anemia / Thrombocytopenia
-Counts stable
BPH / Prostate Cancer
-Continue Flomax
Morbid Obesity due to Excess Calories
-Affect all aspects of care
-Suspect patient may have underlying ERNESTO - Consider sleep study as outpatient
DVT proph: Eliquis
Clinical situation reviewed with his son Pranav, both in and out of room
Code Stats: DNR
Anticipated Discharge: > 48 hours
Subjective/Interval History
-
Date of Service: September 25, 2024
Awake, alert
Objective Data
-
Labs:
Laboratory Results
05/31/25
06:00
WBC 12.1 H
Hgb 13.4
Hct 39.1
Plt Count 158
Sodium 135
Potassium 5.0
Chloride 101
Carbon Dioxide 25
BUN 23 H
Creatinine 0.9
Glucose 310 H
Calcium 9.6
Vital Signs:
Vital Signs
Temp Pulse Resp BP Pulse Ox
97.8 F 89 17 131/77 96
09/25/24 15:00 09/25/24 15:00 09/25/24 15:00 09/25/24 15:00 09/25/24 15:00
I&O
09/24/24 09/25/24 09/26/24
06:59 06:59 06:59
Intake Total 780 / 780 480 / 480
Balance 780 / 780 480 / 480
Review of Systems
-
History Source: Patient and Family (son Pranav in the room)
Constitutional: Denies Fever
EENT: Reports No Symptoms Reported and Hearing Loss
Respiratory: Reports Cough
Cardiac: Reports No Symptoms; Denies Chest Pain
Abdomen/GI: Reports No Symptoms
Physical Exam
-
General: Well Developed, Well Nourished, Comfortable, Appears Chronically Ill and Morbidly Obese
HEENT: Normocephalic, Atraumatic and Moist Mucous Membranes
Respiratory: Rhonchi (diffuse upper airway rhonchi, consistent with aspiration bronchitis on second evaluation, rhonchi were not appreciated on initial evaluation)
Cardiac: Regular Rhythm and S1/S2
GI: Soft, Nontender and Nondistended
Musculoskeletal: No Clubbing, No Cyanosis and No Edema
Skin: Warm and Dry
Neuro: Awake and Alert
[2024-09-25] MEDS: STERILE WATER FOR INJECTION 10 ML IV (17:20)
[2024-09-25] MEDS: ROCEPHIN 1000 MG IV (17:20)
[2024-09-25] MEDS: PEPCID 20 MG PO (20:41)
[2024-09-25 21:29] LABS: Glucose - Point of Care 242 mg/dl (70-99)
[2024-09-25 22:43] VITALS: BP 117/81
[2024-09-25] MEDS: LANTUS 0.15 UNITS SC (22:49)
[2024-09-26] MEDS: DECADRON 4 MG IV ×2 (04:30→11:20)
[2024-09-26] MEDS: FLUSH (NSS) 1 FLUSH IV (05:23)
[2024-09-26 06:00] VITALS: BMI 51.2
[2024-09-26 07:00] VITALS: BP 144/97
[2024-09-26] MEDS: GLUCOPHAGE 1000 MG PO (07:20)
[2024-09-26] MEDS: TOPROL XL 25 MG PO (07:20)
[2024-09-26] MEDS: DESENEX/MITRAZOL/ZEASORB 1 APPLIC TOPICAL ×2 (07:20→21:25)
[2024-09-26] MEDS: ELIQUIS 5 MG PO ×2 (07:20→21:18)
[2024-09-26] MEDS: MUCINEX 600 MG PO ×2 (07:21→21:19)
[2024-09-26] MEDS: LEXAPRO 10 MG PO (07:21)
[2024-09-26] MEDS: PULMICORT 0.5 MG INH ×2 (08:01→20:24)
[2024-09-26] MEDS: DUONEB 3 ML INH ×4 (08:01→20:24)
[2024-09-26 08:06] LABS: Glucose - Point of Care 290 mg/dl (70-99)
[2024-09-26] MEDS: NOVOLOG FLEXPEN-MODERATE RESISTANCE 5 UNITS SC ×2 (08:23→11:20)
--- NOTE | 2024-09-26 10:48 | CM ---
Initial assessment completed. Patient is a 84 y/o male past medical history of ASCVD, A-Fib, Hypertension, Diabetes with multiple recent hospitalizations for right frontal stroke, and TME/Seizure due to hypoglycemia who presents with wheezing.
Patient is a LTC resident at [facility]. CM spoke w/ nurse labor supervisor/Ninfa- [phone] for PLOF. Per Ninfa, patient recently became a total mechanical lift, uses alberto lift for transfers. Dependent w/ bed mobility and dressing. Patient has
padded side rails and a bed alarm at SNF. Per Ninfa, patient has been falling a lot.
Speech eval ordered
Patient may benefit from PT eval
Plan: Return to [facility]. Watch for any skilled needs
[2024-09-26 11:16] LABS: Glucose - Point of Care 285 mg/dl (70-99)
--- NOTE | 2024-09-26 14:42 | W.PN.HOSP.TC ---
Today's Communication/Plan
-
taper steroids
follow glu
VSE
consider pulm consult
Request speech reevaluation
Assessment / Plan
Assessment / Plan
Acute COPD Exacerbation was admitting dx, but the fact that at times his lungs can be clear then sound very rhonchus hours later, would be more consistent with an aspiraiton event
-Resume Pulmicort and DuoNeb QID and PRN
-Resume Decadron 4mg q8H, will begin taper to 2 mg q8h
will begin tapering HIEU because of concern related to his DM
-Encourage use of incentive spirometer
-Monitor pulse ox - Supplemental oxygen as needed
-Check nocturnal pulse ox. 2nd visit when son arrived
Diabetes Mellitus, Type II
-Sugars currently uncontrolled and likely will continue to trend upwards with addition of steroids
-Glimepiride stopped last admission due to hypoglycemia
-Increase Lantus 15 units HS
-Increase metformin 1000mg BID
-Monitor sugars and continue coverage insulin
glu [id number]
Paroxysmal Atrial Fibrillation with Recent Right Frontal Stroke
-Continue Eliquis
-Continue Metoprolol
Essential Hypertension
-Continue metoprolol
Hyperlipidemia
-Continue atorvastatin
Dementia / Anxiety / Depression
-Continue Lexapro
-Prior history of agitation - Monitor for mood/behavior changes during hospitalization
GERD
-Continue famotidine
Chronic Anemia / Thrombocytopenia
-Counts stable
BPH / Prostate Cancer
-Continue Flomax
Morbid Obesity due to Excess Calories
-Affect all aspects of care
-Suspect patient may have underlying ERNESTO - Consider sleep study as outpatient
DVT proph: Eliquis
Clinical situation reviewed with his son Pranav, both in and out of room 09/26
Reviewed with son, he does not want any sort of feeding tube for the patient
Code Stats: DNR
Anticipated Discharge: > 48 hours
Subjective/Interval History
-
Date of Service: September 26, 2024
Looks better, starting to eat
Objective Data
-
Vital Signs:
Vital Signs
Temp Pulse Resp BP Pulse Ox
97.8 F 85 6 144/97 92
09/26/24 07:00 09/26/24 11:24 09/26/24 11:24 09/26/24 07:00 09/26/24 08:05
I&O
09/25/24 09/26/24 09/27/24
06:59 06:59 06:59
Intake Total 780 / 780 600 / 600
Balance 780 / 780 600 / 600
Review of Systems
-
History Source: Patient and Family (son Pranav in the room)
Constitutional: Denies Fever
EENT: Reports No Symptoms Reported and Hearing Loss
Respiratory: Reports Cough
Cardiac: Reports No Symptoms; Denies Chest Pain
Abdomen/GI: Reports No Symptoms
Physical Exam
-
General: Well Developed, Well Nourished, Comfortable, Appears Chronically Ill and Morbidly Obese
HEENT: Normocephalic, Atraumatic and Moist Mucous Membranes
Respiratory: Wheezes (holoexpiratory wheeze with good air movement) and Rhonchi (diffuse upper airway rhonchi noted earlier today, on repeat visit fully resolved)
Cardiac: Regular Rhythm and S1/S2
GI: Soft, Nontender and Nondistended
Musculoskeletal: No Clubbing, No Cyanosis and No Edema
Skin: Warm and Dry
Neuro: Awake and Alert
[2024-09-26 15:00] VITALS: BP 112/81
[2024-09-26 16:56] LABS: Glucose - Point of Care 389 mg/dl (70-99)
[2024-09-26] MEDS: NOVOLOG FLEXPEN-MODERATE RESISTANCE 9 UNITS SC (16:59)
[2024-09-26] MEDS: FLOMAX PO (17:01)
[2024-09-26] MEDS: GLUCOPHAGE PO (17:02)
[2024-09-26] MEDS: STERILE WATER FOR INJECTION 10 ML IV (17:02)
[2024-09-26] MEDS: ROCEPHIN 1000 MG IV (17:02)
[2024-09-26] MEDS: LIPITOR PO (17:02)
--- NOTE | 2024-09-26 17:10 | PTCARENOTE ---
09/26- Patient continues to be lethargic and sleeping most of the day. He has eaten <10% of his food today. He is too lethargic to take PO medication at this time despite multiple attempts to wake him enough to safely take PO medication. Lungs
have Inspiratory wheezing BL throughout with significantly diminished bases. POX=92% on RA with HR=67
[2024-09-26] MEDS: PEPCID 20 MG PO (21:18)
[2024-09-26] MEDS: DECADRON 2 MG IV (21:19)
[2024-09-26 21:35] LABS: Glucose - Point of Care 358 mg/dl (70-99)
[2024-09-26] MEDS: LANTUS 0.15 UNITS SC (22:12)
[2024-09-26 23:46] VITALS: BP 174/106
[2024-09-27 00:23] VITALS: BP 129/59
[2024-09-27] MEDS: DECADRON 2 MG IV ×3 (03:19→21:23)
[2024-09-27 06:00] VITALS: BMI 51.3
[2024-09-27] MEDS: DESENEX/MITRAZOL/ZEASORB 1 APPLIC TOPICAL ×2 (07:00→22:00)
--- NOTE | 2024-09-27 07:23 | PN.CDI ---
CDI
- -
CDI:
Physician Documentation Request
Admit Date: 09/24/24 13:54
Dear Doctor Mary Beth,
Please review the following and provide your response in the progress notes.
Clinical Indicators:
PN, 09/26
#Acute COPD Exacerbation was admitting dx,
#...but the fact that at times his lungs can be clear
#...then sound very rhonchus hours later, would be more
#...consistent with an aspiraiton event
Medications
Ceftriaxone Sodium (Ceftriaxone 1000 Mg / 10 Ml Vial) 1,000 mg IV Q24H DARIAN
Last Admin: 09/26/24 17:02 Dose: 1,000 mg
Based on the above and your clinical assessment, please clarify the known, suspected or likely condition/diagnosis evaluated, monitored and/or treated:
Aspiration Pneumonia - indicate substance such as food or vomitus, oils or other solids or liquids
Aspiration Pneumonitis
COPD exacerbation only
Other (please specify)
Use of terms such as suspected, likely, concern for, or probable (associated with a specific diagnosis that is being evaluated, monitored, or treated as if it exists) are acceptable and can be coded in the inpatient setting, when documented at the
time of discharge.
Thank you,
Ghislaine Villarreal RN BSN CCDS
CDI Specialist
Please contact via tiger text
Please use your independent medical judgment in providing your response.
[2024-09-27] MEDS: PULMICORT 0.5 MG INH ×2 (07:30→19:14)
[2024-09-27] MEDS: DUONEB 3 ML INH ×4 (07:30→19:15)
[2024-09-27 07:38] VITALS: BP 171/98
[2024-09-27 07:40] LABS: % Basophils 0.1 % (0-2); % Immature Granulocytes 0.7 % (0-0.5); % Lymphocytes 6.9 % (20.5-51.1); % Monocytes 6.5 % (1.7-9.3); % Neutrophils 85.8 % (42.2-75.2); Absolute Immature Granulocytes 0.1 10^3/uL (0-0.05); Absolute Lymphocytes 0.9 10^3/uL (1.2-3.4); Absolute Monocytes 0.8 10^3/uL (0.1-0.6); Absolute Neutrophils 10.8 10^3/uL (1.4-6.5); Hematocrit 38.9 % (39.0-52.0); Hemoglobin 13.3 g/dL (13.0-18.0); Mean Corp Hgb Conc. 34.2 g/dL (33.0-37.0); Mean Corpuscular Hgb 32.6 pg (27.0-31.0); Mean Corpuscular Volume 95.3 fL (80.0-94.0); Mean Platelet Volume 10.4 fL (7.4-10.4); Nucleated Red Blood Cells % 0 % (-); Platelet Count 153 10^3/uL (130-400); Red Blood Cell Count 4.08 10^6/uL (4.70-6.10); Red Cell Dist. Width 12.6 % (11.5-14.5); White Blood Cell Count 12.6 10^3/uL (4.8-10.8)
[2024-09-27 08:06] LABS: Glucose - Point of Care 307 mg/dl (70-99)
[2024-09-27 08:34] LABS: Blood Urea Nitrogen 31 mg/dl (9-20); Calcium 9.4 mg/dl (8.4-10.2); Carbon Dioxide 25 mmol/L (22-30); Chloride 101 mmol/L (98-107); Estimated Creatinine Clearance 55 ml/min; Glucose 351 mg/dl (70-99); Potassium 4.3 mmol/L (3.5-5.1); Sodium 133 mmol/L (135-145); eGFR > 60.00
--- NOTE | 2024-09-27 09:15 | PTOTSP ---
Speech Language Pathology
VIDEOFLUOROSCOPIC SWALLOWING EXAMINATION (VSE) completed. Pt with functional oropharyngeal swallow. Only trace pharyngeal residue noted. Supraglottic penetration with consecutive sips of thin liquids via straw and mildly thick liquids via
extremely large cup sip. No aspiration noted.
Recommend:
(1) Regular solids/thin liquids
(2) General aspiration precautions
(3) Meds as tolerated
(4) [employer] to sign off. Please reconsult as indicated
[2024-09-27] MEDS: NOVOLOG FLEXPEN-MODERATE RESISTANCE 7 UNITS SC ×2 (10:05→18:28)
[2024-09-27] MEDS: GLUCOPHAGE 1000 MG PO ×2 (10:09→18:31)
[2024-09-27] MEDS: LEXAPRO 10 MG PO (10:10)
[2024-09-27] MEDS: ELIQUIS 5 MG PO ×2 (10:10→21:22)
[2024-09-27] MEDS: TOPROL XL 25 MG PO (10:11)
[2024-09-27] MEDS: MUCINEX 600 MG PO ×2 (10:11→21:24)
[2024-09-27 12:32] LABS: Glucose - Point of Care 531 mg/dl (70-99)
[2024-09-27] MEDS: FLUSH (NSS) 1 FLUSH IV (13:09)
[2024-09-27 13:16] LABS: Glucose 504 mg/dl (70-99)
[2024-09-27] MEDS: NOVOLOG FLEXPEN-MODERATE RESISTANCE 12 UNITS SC (13:17)
--- NOTE | 2024-09-27 14:59 | CON.PUL ---
Consultation
Consultation Request
Date/Time Consultation Requested: 09/27/2024
Date/Time Consultation Performed: 09/27/2024
Requesting Provider: Dr. Clinton
Performing Provider: Dr. Mello Bai
Reason for Consultation: Aspiration pneumonitis
Medical History
-
Chief Complaint: Altered mental status
History of Present Illness:
This is a 84-year-old with past medical history of atrial fibrillation on Eliquis, hypertension, hyperlipidemia, CAD, insulin-dependent diabetes, history of multiple hospitalization for frontal stroke, patient is extremely hard of hearing history
obtained from chart and discussed with patient.
During last hospital stay few weeks ago he was being treated for possible COPD exacerbation with nebulizers.
At the facility he was noted to have increased work of breathing and mild respiratory distress.
Due to rapid fluctuation of symptoms in regards to the respiratory status where his lungs are clear and deteriorate rapidly recurrent microaspiration is suspected.
COPD appears to be less likely and I was consulted on 09/27/2024 for evaluation of this.
-
Patient has no known diagnosis of COPD/asthma or cystic fibrosis. Has never been diagnosed with sleep apnea before.
Past Medical History:
Reports CVA, Dementia and Other
Additional Past Medical History:
HTN, HLD, CAD s/p PCI, chronic ambulatory dysfunction, migraines, ex-smoker, prostate [place], [place], skin CA, anemia, thrombocytopenia morbid obesity
Past Surgical History: Reports Other
Additional Past Surgical History:
B/L knee arthroscopies, right knee replacement 2017, stapedectomy left ear, hemorrhoidectomy 27 years ago, skin graft from leg to head, cyst removal to neck
Social History
Tobacco: Former Smoker (Quit 30 years ago prior 35 years ago + cigars)
Drug: None
Personal: Single
Living: Halfway ([facility])
Employment: Retired
Family History
Family History: Not pertinent
Allergies / Home Medications
Allergies / Home Medications
Allergies
Allergy/AdvReac Type Severity Reaction Status Date / Time
No Known Allergies Allergy Verified 09/24/24 11:08
Home Medications
�Medication �Instructions �Recorded �Confirmed �Last Taken �Type
tamsulosin 0.4 mg capsule 0.8 mg PO QPM Urinary issue 08/10/18 09/24/24 09/23/24 History
atorvastatin 40 mg tablet 40 mg PO QPM High cholesterol 07/20/20 09/24/24 09/23/24 History
metoprolol succinate 25 mg 25 mg PO DAILY Heart 07/20/20 09/24/24 09/24/24 History
tablet,extended release 24 hr disease/condition
acetaminophen 325 mg tablet 650 mg PO Q4HPRN PRN mild 07/25/22 09/24/24 Unknown History
pain/temp> 100.4F
apixaban 5 mg tablet (Eliquis) 5 mg PO BID Blood clot 07/25/22 09/24/24 09/24/24 History
prevention/tx
bisacodyl 10 mg rectal suppository 10 mg MI DAILYPRN PRN when no 07/25/22 09/24/24 Unknown History
(Dulcolax (bisacodyl)) bm/mom ineffective
famotidine 20 mg tablet 20 mg PO HS Gastrointestinal issue 07/25/22 09/24/24 09/23/24 History
magnesium hydroxide 400 mg/5 mL 2,400 mg PO HSPRN PRN constipation 07/25/22 09/24/24 Unknown History
oral suspension (Milk of Magnesia)
cholecalciferol (vitamin D3) 250 250 mcg PO QMONTH Supplement 05/04/24 09/24/24 Unknown History
mcg (10,000 unit) tablet
escitalopram oxalate 10 mg tablet 10 mg PO DAILY Depression 05/04/24 09/24/24 09/24/24 History
metformin 500 mg tablet 500 mg PO BID Diabetes 05/04/24 09/24/24 09/24/24 History
albuterol sulfate 90 mcg/actuation 2 puff inhalation R Q4HPRN PRN 09/19/24 09/24/2409/24/25 History
aerosol inhaler sob/wheezing
insulin aspart U-100 100 unit/mL 0 - 12 sliding scale dose SC 09/19/24 09/24/24 09/24/24 History
(3 mL) subcutaneous pen DIRECTED Diabetes
ipratropium 0.5 mg-albuterol 3 mg 3 ml inhalation R Q6HPRN PRN 09/19/24 09/24/24 09/24/24 History
(2.5 mg base)/3 mL nebulization wheezing
soln
insulin glargine 100 unit/mL 10 unit SC HS Diabetes 09/24/24 09/24/24 09/23/24 History
subcutaneous solution (Lantus
U-100 Insulin)
Review of Systems
-
History Source: Patient
All other systems: Negative unless noted
Vitals / Labs / Diagnostic Testing
Vital Signs
Temp Pulse Resp BP Pulse Ox
98.2 F 91 18 171/98 95
09/27/24 07:38 09/27/24 11:08 09/27/24 11:08 09/27/24 07:38 09/27/24 11:08
Lab Data
09/27/24 07:22
09/27/24 12:50
Microbiology
09/24/24 18:41 Nose MRSA Screen - Final
No Methicillin Resistant Staphylococcus aureus isolated.
Diagnostic Testing:
Physical Exam
-
HEENT: Normocephalic
Cardiovascular: S1/S2
Respiratory: Wheeze (Expiratory mild), Rhonchi (None) and Non-Labored Respirations (At rest)
GI: Soft and Distended (Obese)
Neurology: Awake, Alert, Other (I spoke to him writing on the board. Answers were appropriate.) and Other (Hard of hearing)
Skin: Warm
General: Comfortable
Assessment
-
84-year-old man with past medical history significant for coronary artery disease, atrial fibrillation, hypertension, CVA, dementia, history of hypoglycemia presented to the hospital on 09/24/2024 from his facility due to wheezing and shortness of
breath.
We were consulted on 09/27/2024 as there were suspicions for recurrent microaspiration/silent and less likely COPD.
-
Acute respiratory insufficiency.
AB.41/43/82 (09/24/2024)
proBNP-not elevated/normal troponin
Bronchospasm: Suspect recurrent silent microaspiration
Negative video barium swallow.
Chronic compensated hypercapnic respiratory failure
Leukocytosis probably due to steroid
Other medical diagnoses:
- Hypoglycemia. Resolved
- H/O UTI
- HTN, HLD
- Paroxysmal A fib on Anticoagulation
- H/O Dementia
-History of a stroke
- h/o CAD s/p PCI 2019
- Hard of hearing
Assessment and plan:
As previously mentioned patient does not have formal COPD diagnosis-no PFT available. Patient quit smoking in the distant past.
Has been admitted with recurrent wheeze-doubt recurrent COPD exacerbation.
Despite a negative barium swallow given underlying dementia/previous CVA etc. microaspiration with subsequent bronchospasm can occur.
Patient can also have hyperdynamic airway collapse due to obesity. Based on prior evaluation he always has a low level degree of wheezing.
He does not appear in distress
Not producing phlegm
-
Can develop some reactive airways with aspiration: Not COPD exacerbation.
Continue Pulmicort twice a day-should be discharged on this medication
With taper steroids rather quickly-at high risk for delirium. Discussed with Dr. Clinton. Already taper dexamethasone.
Continue DuoNebs 4 times a day-should be discharged on this medication at least 3 times per day.
Should be discharged on these medications and can be used until symptoms completely clear.
-
Intermittent hypoxemia likely due to hypoventilation and obesity
Patient likely has undiagnosed obstructive sleep apnea and obesity hypoventilation syndrome.
He has been recommended in the past to follow-up in the outpatient setting
-
Will follow

Data reviewed:
Chest x-ray 09/25/2024: Clear lung
CXR 08/2024: Low lung volumes, otherwise unremarkable
CT Head 08/2024: Unremarkable
ECHO 06/2022: 1. Left ventricle: Normal size and function with an estimated ejection
fraction of 60-65%. Normal diastolic function.
2. Right ventricle: Normal
3. Atria: Normal
4. Mitral valve: No mitral regurgitation
5. Aortic valve: No aortic stenosis or aortic insufficiency
6. Tricuspid valve: No tricuspid regurgitation
7. No significant change when compared to the most recent echocardiogram from
12/24/2019
[facility] 07/2018: 1. Successful stenting of multisegment circumflex disease with placement of 2.5 x 12 Xience keyanna JOSH to distal OM2 and 3.5 x 15 Xience keyanna JOSH to proximal circumflex
2. Unsuccessful attempted PCI of high grade proximal RCA stenosis due to inability to pass guidewire through lesion (likely a [employer])
[2024-09-27 15:21] LABS: Glucose - Point of Care 452 mg/dl (70-99)
--- NOTE | 2024-09-27 15:51 | W.PN.HOSP.TC ---
Today's Communication/Plan
-
taper steroids rapidly, but follow glu very closely while tapering
Would not dc until off steroids and glu is felt to be stable
Assessment / Plan
Assessment / Plan
Acute COPD Exacerbation was admitting dx, but the fact that at times his lungs can be clear then sound very rhonchus hours later, would be more consistent with an aspiration event.
Consult placed to Dr. Bai who agrees that respiratory event was more likely an aspiration associated event/aspiration Bronchitis
Video swallow eval was negative and thus can assume there is not an issue as long as the patient is paying attention to his swallowing, the problem comes in if he is distracted while eating.
Discussed with [place] Rock/son, he should be observed while eating and not be distracted
-Resume Pulmicort and DuoNeb QID and PRN
-Resume Decadron 4mg q8H, will begin taper to 2 mg q8h
will begin tapering HIEU because of concern related to his DM
-Encourage use of incentive spirometer
-Monitor pulse ox - Supplemental oxygen as needed
-Check nocturnal pulse ox. 2nd visit when son arrived
Diabetes Mellitus, Type II
-Sugars currently uncontrolled and likely will continue to trend upwards with addition of steroids
-Glimepiride stopped last admission due to hypoglycemia
-Increased Lantus 15 units HS
-Increased metformin 1000mg BID
-Monitor sugars and continue coverage insulin
glu [id number]. have begun to taper steroids. Will need to be very meticulous with decreased steroid dose and decrease insulin to avoid recurrence of the hypoglycemia
Paroxysmal Atrial Fibrillation with Recent Right Frontal Stroke
-Continue Eliquis
-Continue Metoprolol
Essential Hypertension
-Continue metoprolol
Hyperlipidemia
-Continue atorvastatin
Dementia / Anxiety / Depression
-Continue Lexapro
-Prior history of agitation - Monitor for mood/behavior changes during hospitalization
GERD
-Continue famotidine
Chronic Anemia / Thrombocytopenia
-Counts stable
BPH / Prostate Cancer
-Continue Flomax
Morbid Obesity due to Excess Calories
-Affect all aspects of care
-Suspect patient may have underlying ERNESTO - Consider sleep study as outpatient
DVT proph: Eliquis
Clinical situation reviewed with his son Pranav, by phone 09/27
Reviewed with son, he does not want any sort of feeding tube for the patient
Code Stats: DNR
Anticipated Discharge: 24 - 48 hours
Subjective/Interval History
-
Date of Service: September 27, 2024
overall looks better, no evidence of sob at rest
Objective Data
-
Labs:
Laboratory Results
09/27/24 09/27/24 09/27/24
07:22 12:50 15:39
WBC 12.6 H
Hgb 13.3
Hct 38.9 L
Plt Count 153
Sodium 133 L
Potassium 4.3
Chloride 101
Carbon Dioxide 25
BUN 31 H
Creatinine 1.1
Glucose 351 H 504 H* Pending
Calcium 9.4
Vital Signs:
Vital Signs
Temp Pulse Resp BP Pulse Ox
98.2 F 91 18 171/98 95
09/27/24 07:38 09/27/24 11:08 09/27/24 11:08 09/27/24 07:38 09/27/24 11:08
I&O
09/26/24 09/27/24 09/28/24
06:59 06:59 06:59
Intake Total 600 / 600 480 / 480
Balance 600 / 600 480 / 480
Review of Systems
-
History Source: Patient and Family (son Pranav by phone)
Constitutional: Denies Fever
EENT: Reports No Symptoms Reported and Hearing Loss
Respiratory: Reports Cough
Cardiac: Reports No Symptoms; Denies Chest Pain
Abdomen/GI: Reports No Symptoms
Physical Exam
-
General: Well Developed, Well Nourished, Comfortable, Appears Chronically Ill and Morbidly Obese
HEENT: Normocephalic, Atraumatic and Moist Mucous Membranes
Respiratory: Wheezes (holoexpiratory wheeze with good air movement); Negative Rhonchi (resolved)
Cardiac: Regular Rhythm and S1/S2
GI: Soft, Nontender and Nondistended
Musculoskeletal: No Clubbing, No Cyanosis and No Edema
Skin: Warm and Dry
Neuro: Awake and Alert
[2024-09-27 15:52] VITALS: BP 162/132
[2024-09-27 16:06] LABS: Glucose 397 mg/dl (70-99)
--- NOTE | 2024-09-27 16:45 | CM ---
Patient was admitted from [facility] and plan is for patient to return to [facility] when stable.
[facility]
Report [phone]
[2024-09-27 17:54] LABS: Glucose - Point of Care 310 mg/dl (70-99)
[2024-09-27] MEDS: LIPITOR 40 MG PO (18:31)
[2024-09-27] MEDS: FLOMAX 0.8 MG PO (18:31)
[2024-09-27] MEDS: ROCEPHIN 1000 MG IV (18:32)
[2024-09-27] MEDS: STERILE WATER FOR INJECTION 10 ML IV (18:32)
[2024-09-27 19:25] VITALS: BP 134/79
[2024-09-27] MEDS: PEPCID 20 MG PO (21:22)
[2024-09-27 21:37] LABS: Glucose - Point of Care 302 mg/dl (70-99)
[2024-09-27] MEDS: LANTUS 0.15 UNITS SC (22:42)
[2024-09-27 23:20] VITALS: BP 108/68
[2024-09-28] MEDS: DECADRON 2 MG IV ×2 (03:09→12:59)
[2024-09-28 05:50] VITALS: BMI 51.4
[2024-09-28 07:00] VITALS: BP 145/73
[2024-09-28 08:03] LABS: Glucose - Point of Care 301 mg/dl (70-99)
[2024-09-28] MEDS: DUONEB 3 ML INH ×4 (08:29→19:13)
[2024-09-28] MEDS: PULMICORT 0.5 MG INH ×2 (08:29→19:13)
[2024-09-28] MEDS: ELIQUIS 5 MG PO ×2 (09:24→20:15)
[2024-09-28] MEDS: TOPROL XL 25 MG PO (09:26)
[2024-09-28] MEDS: LEXAPRO 10 MG PO (09:26)
[2024-09-28] MEDS: MUCINEX 600 MG PO ×2 (09:26→20:15)
[2024-09-28] MEDS: NOVOLOG FLEXPEN-MODERATE RESISTANCE 7 UNITS SC (09:27)
[2024-09-28] MEDS: GLUCOPHAGE 1000 MG PO ×2 (09:27→17:54)
[2024-09-28] MEDS: DESENEX/MITRAZOL/ZEASORB 1 APPLIC TOPICAL ×2 (09:30→20:16)
[2024-09-28 11:43] LABS: Glucose - Point of Care 357 mg/dl (70-99)
[2024-09-28] MEDS: FLUSH (NSS) 2 FLUSH IV (13:00)
[2024-09-28] MEDS: NOVOLOG FLEXPEN-MODERATE RESISTANCE 9 UNITS SC (13:01)
--- NOTE | 2024-09-28 15:00 | W.PN.PUL3 ---
Today's Communication / Plan
-
Continue dexamethasone
Nebulizers-should be discharged on current regimen
Aspiration precautions
Hopefully discharge planning next 24 hours
Assessment
-
84-year-old man with past medical history significant for coronary artery disease, atrial fibrillation, hypertension, CVA, dementia, history of hypoglycemia presented to the hospital on 09/24/2024 from his facility due to wheezing and shortness of
breath.
We were consulted on 09/27/2024 as there were suspicions for recurrent microaspiration/silent and less likely COPD.
-
Acute respiratory insufficiency.
AB.41/43/82 (09/24/2024)
proBNP-not elevated/normal troponin
Bronchospasm: Suspect recurrent silent microaspiration
Negative video barium swallow.
Chronic compensated hypercapnic respiratory failure
Leukocytosis probably due to steroid
Other medical diagnoses:
- Hypoglycemia. Resolved
- H/O UTI
- HTN, HLD
- Paroxysmal A fib on Anticoagulation
- H/O Dementia
-History of a stroke
- h/o CAD s/p PCI 2019
- Hard of hearing
Assessment and plan:
As previously mentioned patient does not have formal COPD diagnosis-no PFT available. Patient quit smoking in the distant past.
Has been admitted with recurrent wheeze-doubt recurrent COPD exacerbation.
Despite a negative barium swallow given underlying dementia/previous CVA etc. microaspiration with subsequent bronchospasm can occur.
Patient can also have hyperdynamic airway collapse due to obesity. Based on prior evaluation he always has a low level degree of wheezing.
He does not appear in distress
Not producing phlegm
-
Can develop some reactive airways with aspiration: Not COPD exacerbation.
-
Patient comfortable
To my exam, lung exam improved.
Continue Pulmicort twice a day-should be discharged on this medication
With taper steroids rather quickly-at high risk for delirium. Dexamethasone-transition to prednisone upon discharge 40 mg and decrease by 10 mg every 48 hours to off.
Continue DuoNebs 4 times a day-should be discharged on this medication at least 3 times per day.
Should be discharged on these medications and can be used until symptoms completely clear.
-
Intermittent hypoxemia likely due to hypoventilation and obesity
Patient likely has undiagnosed obstructive sleep apnea and obesity hypoventilation syndrome.
He has been recommended in the past to follow-up in the outpatient setting
-
Hopefully can discharge in the next 24 hours if he continues to improve.
Will follow

Data reviewed:
Chest x-ray 09/25/2024: Clear lung
CXR 08/2024: Low lung volumes, otherwise unremarkable
CT Head 08/2024: Unremarkable
ECHO 06/2022: 1. Left ventricle: Normal size and function with an estimated ejection
fraction of 60-65%. Normal diastolic function.
2. Right ventricle: Normal
3. Atria: Normal
4. Mitral valve: No mitral regurgitation
5. Aortic valve: No aortic stenosis or aortic insufficiency
6. Tricuspid valve: No tricuspid regurgitation
7. No significant change when compared to the most recent echocardiogram from
12/24/2019
[facility] 07/2018: 1. Successful stenting of multisegment circumflex disease with placement of 2.5 x 12 Xience keyanna JOSH to distal OM2 and 3.5 x 15 Xience keyanna JOSH to proximal circumflex
2. Unsuccessful attempted PCI of high grade proximal RCA stenosis due to inability to pass guidewire through lesion (likely a GRINDER)
Subjective Data
-
Date of Service:
Date of Service: September 28, 2024
Chief Complaint: Pulmonary Follow Up (Bronchitis/possibly aspiration)
Review of Systems
Cardiopulmonary: Dyspnea (Improved), Cough (Intermittent) and Wheezing (Intermittent)
Objective Data
Data Reviewed
Vital Signs / I&O / Oxygen:
Vital Signs
Temp Pulse Resp BP Pulse Ox
97.9 F 80 16 145/73 94
09/28/24 07:00 09/28/24 11:33 09/28/24 11:33 09/28/24 07:00 09/28/24 11:33
Intake and Output
09/27/24 09/28/24 09/29/24
06:59 06:59 06:59
Intake Total 480 / 480 600 / 600
Balance 480 / 480 600 / 600
SaO2 94
Physical Exam
General: Comfortable
HEENT: Normocephalic
Cardiovascular: S1-S2
Respiratory: Wheeze (Expiratory)
GI: Soft and Non Distended
Neurology: Awake, Alert and No Motor Deficits
Skin: Warm
Labs/Micro/Reports
Lab Data
09/27/24 07:22
09/27/24 15:39
Microbiology
09/24/24 18:41 Nose MRSA Screen - Final
No Methicillin Resistant Staphylococcus aureus isolated.
[2024-09-28 15:21] VITALS: BP 144/88
--- NOTE | 2024-09-28 16:30 | CM ---
arts administrator or manager reviewed patient's chart and faxed updated clinical to admissions at [facility]. Patient will require ambulance transport back to [facility] as patient has dementia and right frontal stroke.
[facility]
Report [phone]
[2024-09-28 16:40] LABS: Glucose - Point of Care 231 mg/dl (70-99)
--- NOTE | 2024-09-28 16:54 | W.PN.HOSP.TC ---
Today's Communication/Plan
-
Wean off dexamethasone.
Transition to Augmentin.
Basal bolus protocol.
Add Premeal NovoLog and continue blood glucose monitoring
Assessment / Plan
Assessment / Plan
Acute COPD Exacerbation was admitting dx, but the fact that at times his lungs can be clear then sound very rhonchus hours later, would be more consistent with an aspiration event.
Consult placed to Dr. Bai who agrees that respiratory event was more likely an aspiration associated event/aspiration Bronchitis
Video swallow eval was negative and thus can assume there is not an issue as long as the patient is paying attention to his swallowing, the problem comes in if he is distracted while eating.
Discussed with LONDON Rock/son, he should be observed while eating and not be distracted
-Resume Pulmicort and DuoNeb QID and PRN
- Respiratory status remains stable.
Maintain aspiration precautions
Wean off steroids
Continue antibiotics to complete total course of 7 days of treatment with transition to Augmentin on 09/28
Diabetes Mellitus, Type II
-Sugars currently uncontrolled and likely will continue to trend upwards with addition of steroids
-Glimepiride stopped last admission due to hypoglycemia
-Increased Lantus 15 units HS
-Increased metformin 1000mg BID
-Add AC NovoLog
Paroxysmal Atrial Fibrillation with Recent Right Frontal Stroke
-Continue Eliquis
-Continue Metoprolol
Essential Hypertension
-Continue metoprolol
Hyperlipidemia
-Continue atorvastatin
Dementia / Anxiety / Depression
-Continue Lexapro
-Prior history of agitation - Monitor for mood/behavior changes during hospitalization
GERD
-Continue famotidine
Chronic Anemia / Thrombocytopenia
-Counts stable
BPH / Prostate Cancer
-Continue Flomax
Morbid Obesity due to Excess Calories
-Affect all aspects of care
-Suspect patient may have underlying ERNESTO - Consider sleep study as outpatient
DVT proph: Eliquis
Clinical situation reviewed with his son Pranav, by phone 09/27
Reviewed with son, he does not want any sort of feeding tube for the patient
Code Stats: DNR
Anticipated Discharge: Within 24 hours
Subjective/Interval History
-
Date of Service: September 28, 2024
Objective Data
-
Vital Signs:
Vital Signs
Temp Pulse Resp BP Pulse Ox
98.0 F 81 16 144/88 94
09/28/24 15:21 09/28/24 15:43 09/28/24 15:43 09/28/24 15:21 09/28/24 15:43
I&O
09/27/24 09/28/24 09/29/24
06:59 06:59 06:59
Intake Total 480 / 480 600 / 600
Balance 480 / 480 600 / 600
Physical Exam
-
General: Well Developed, Well Nourished, Comfortable, Appears Chronically Ill and Morbidly Obese
HEENT: Normocephalic, Atraumatic and Moist Mucous Membranes
Respiratory: Wheezes (holoexpiratory wheeze with good air movement); Negative Rhonchi (resolved)
Cardiac: Regular Rhythm and S1/S2
GI: Soft, Nontender and Nondistended
Musculoskeletal: No Clubbing, No Cyanosis and No Edema
Skin: Warm and Dry
Neuro: Awake and Alert
[2024-09-28] MEDS: NOVOLOG FLEXPEN-MODERATE RESISTANCE 3 UNITS SC (17:48)
[2024-09-28] MEDS: NOVOLOG FLEXPEN 4 UNITS SC (17:50)
[2024-09-28] MEDS: FLOMAX 0.8 MG PO (17:54)
[2024-09-28] MEDS: LIPITOR 40 MG PO (17:54)
[2024-09-28] MEDS: AUGMENTIN 875 MG/125 MG 1 TABLET PO (20:15)
[2024-09-28] MEDS: PEPCID 20 MG PO (20:17)
[2024-09-28 21:20] LABS: Glucose - Point of Care 231 mg/dl (70-99)
[2024-09-28] MEDS: LANTUS 0.15 UNITS SC (22:16)
[2024-09-28 23:39] VITALS: BP 157/74
[2024-09-29 05:18] VITALS: BMI 51.3
[2024-09-29 07:33] LABS: Glucose - Point of Care 162 mg/dl (70-99)
[2024-09-29 07:35] VITALS: BP 151/91
[2024-09-29] MEDS: DUONEB 3 ML INH ×3 (07:39→15:48)
[2024-09-29] MEDS: PULMICORT 0.5 MG INH (07:39)
[2024-09-29] MEDS: NOVOLOG FLEXPEN-MODERATE RESISTANCE 1 UNITS SC (09:27)
[2024-09-29] MEDS: NOVOLOG FLEXPEN 4 UNITS SC ×3 (09:28→16:37)
[2024-09-29] MEDS: AUGMENTIN 875 MG/125 MG 1 TABLET PO (09:30)
[2024-09-29] MEDS: DESENEX/MITRAZOL/ZEASORB 1 APPLIC TOPICAL (09:30)
[2024-09-29] MEDS: GLUCOPHAGE 1000 MG PO ×2 (09:31→16:37)
[2024-09-29] MEDS: ELIQUIS 5 MG PO (09:31)
[2024-09-29] MEDS: MUCINEX 600 MG PO (09:32)
[2024-09-29] MEDS: TOPROL XL 25 MG PO (09:32)
[2024-09-29] MEDS: LEXAPRO 10 MG PO (09:32)
[2024-09-29 11:46] LABS: Glucose - Point of Care 277 mg/dl (70-99)
--- NOTE | 2024-09-29 12:38 | CM ---
Addendum entered by Tamara Richard 09/29/24 14:11:
Patient scheduled for 5:00 p.m. ambulance transport, admissions at [facility] updated, son Pranav updated.
Original Note:
CM reviewed chart, reviewed with Hospitalist, patient for discharge today, return to [facility]. Patient will require ambulance transport due to dementia, non-ambulatory. Call to patients marci/Pranav CALLAHAN, to discuss discharge, requesting
call from Hospitalist. IMM verbally reviewed, placed on chart. Yannick Liaison at [facility] updated with patient return. CM will continue to follow for all discharge planning needs.
Plan; return to [facility], ambulance transport
[facility]
Report [phone]
--- NOTE | 2024-09-29 12:40 | W.DS.TRANS ---
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
-
Discharge Instructions:
Discharge Diagnosis/Procedures Aspiration penumonia
Diet Diabetic, Carb Controlled
Instructions:
Stand-Alone Forms:
Changes to Home Medications: No
Discharge Medications:
DC Medications w/original date entered in [facility]
tamsulosin 0.4 mg capsule 0.8 mg PO QPM Urinary issue 08/10/18
atorvastatin 40 mg tablet 40 mg PO QPM High cholesterol 07/20/20
metoprolol succinate 25 mg tablet,extended release 24 hr 25 mg PO DAILY Heart disease/condition 07/20/20
acetaminophen 325 mg tablet 650 mg PO Q4HPRN PRN mild pain/temp> 100.4F 07/25/22
apixaban 5 mg tablet (Eliquis) 5 mg PO BID Blood clot prevention/tx 07/25/22
bisacodyl 10 mg rectal suppository (Dulcolax (bisacodyl)) 10 mg MS DAILYPRN PRN when no bm/mom ineffective 07/25/22
famotidine 20 mg tablet 20 mg PO HS Gastrointestinal issue 07/25/22
magnesium hydroxide 400 mg/5 mL oral suspension (Milk of Magnesia) 2,400 mg PO HSPRN PRN constipation 07/25/22
cholecalciferol (vitamin D3) 250 mcg (10,000 unit) tablet 250 mcg PO QMONTH Supplement 05/04/24
escitalopram oxalate 10 mg tablet 10 mg PO DAILY Depression 05/04/24
metformin 500 mg tablet 500 mg PO BID Diabetes 05/04/24
albuterol sulfate 90 mcg/actuation aerosol inhaler 2 puff inhalation R Q4HPRN PRN sob/wheezing 09/19/24
insulin aspart U-100 100 unit/mL (3 mL) subcutaneous pen 0 - 12 sliding scale dose SC DIRECTED Diabetes 09/19/24
ipratropium 0.5 mg-albuterol 3 mg (2.5 mg base)/3 mL nebulization soln 3 ml inhalation R Q6HPRN PRN wheezing 09/19/24
insulin glargine 100 unit/mL subcutaneous solution (Lantus U-100 Insulin) 10 unit SC HS Diabetes 09/24/24
amoxicillin 875 mg-potassium clavulanate 125 mg tablet 1 tab PO Q12 #10 tabs 09/29/24
Home Medication Changes
Pending Results: No
--- NOTE | 2024-09-29 13:06 | W.PN.PUL3 ---
Today's Communication / Plan
-
Discharge on nebulizer therapy-as noted
Prednisone taper
Aspiration precautions
Discharge planning
Sign off
Assessment
-
84-year-old man with past medical history significant for coronary artery disease, atrial fibrillation, hypertension, CVA, dementia, history of hypoglycemia presented to the hospital on 09/24/2024 from his facility due to wheezing and shortness of
breath.
We were consulted on 09/27/2024 as there were suspicions for recurrent microaspiration/silent and less likely COPD.
-
Acute respiratory insufficiency.
AB.41/43/82 (09/24/2024)
proBNP-not elevated/normal troponin
Bronchospasm: Suspect recurrent silent microaspiration
Negative video barium swallow.
Chronic compensated hypercapnic respiratory failure
Leukocytosis probably due to steroid
Other medical diagnoses:
- Hypoglycemia. Resolved
- H/O UTI
- HTN, HLD
- Paroxysmal A fib on Anticoagulation
- H/O Dementia
-History of a stroke
- h/o CAD s/p PCI 2019
- Hard of hearing
Assessment and plan:
As previously mentioned patient does not have formal COPD diagnosis-no PFT available. Patient quit smoking in the distant past.
Has been admitted with recurrent wheeze-doubt recurrent COPD exacerbation.
-
Clinically improved 09/29/2024.
Patient has chronic expiratory wheezing-is mostly bedbound.
-
Despite a negative barium swallow given underlying dementia/previous CVA etc. microaspiration with subsequent bronchospasm can occur.
Patient can also have hyperdynamic airway collapse due to obesity. Based on prior evaluation he always has a low level degree of wheezing.
He does not appear in distress
Not producing phlegm
Can develop some reactive airways with aspiration: Not COPD exacerbation.
-
Comfortable on exam.
Lung exam improved. Moving good air. Has a strong cough effort.
Agree with discharge planning
Discharge nebulizers:
-
Pulmicort twice a day
DuoNebs 3-4 times a day
Transition to prednisone upon discharge 40 mg and decrease by 10 mg every 48 hours to off.
Should be discharged on these medications and can be used until symptoms completely clear.
-
Intermittent hypoxemia likely due to hypoventilation and obesity
Patient likely has undiagnosed obstructive sleep apnea and obesity hypoventilation syndrome.
He has been recommended in the past to follow-up in the outpatient setting
-
Agree with discharge today. Discussed with primary team.
Sign off.

Data reviewed:
Chest x-ray 09/25/2024: Clear lung
CXR 08/2024: Low lung volumes, otherwise unremarkable
CT Head 08/2024: Unremarkable
ECHO 06/2022: 1. Left ventricle: Normal size and function with an estimated ejection
fraction of 60-65%. Normal diastolic function.
2. Right ventricle: Normal
3. Atria: Normal
4. Mitral valve: No mitral regurgitation
5. Aortic valve: No aortic stenosis or aortic insufficiency
6. Tricuspid valve: No tricuspid regurgitation
7. No significant change when compared to the most recent echocardiogram from
12/24/2019
[facility] 07/2018: 1. Successful stenting of multisegment circumflex disease with placement of 2.5 x 12 Xience keyanna JOSH to distal OM2 and 3.5 x 15 Xience keyanna JOSH to proximal circumflex
2. Unsuccessful attempted PCI of high grade proximal RCA stenosis due to inability to pass guidewire through lesion (likely a [employer])
Subjective Data
-
Date of Service:
Date of Service: September 29, 2024
Chief Complaint: Pulmonary Follow Up (Bronchitis/possibly aspiration)
Subjective:
No new complaint
Stable overnight
denies increased phlegm production
Overall feels better.
Review of Systems
General: Other (Difficult to obtain. Very hard of hearing. Writing on the board.)
Objective Data
Data Reviewed
Vital Signs / I&O / Oxygen:
Vital Signs
Temp Pulse Resp BP Pulse Ox
98.3 F 77 16 151/91 96
09/29/24 07:35 09/29/24 11:30 09/29/24 11:30 09/29/24 07:35 09/29/24 11:30
Intake and Output
09/28/24 09/29/24 09/30/24
06:59 06:59 06:59
Intake Total 600 / 600 600 / 600
Balance 600 / 600 600 / 600
SaO2 96
Physical Exam
General: Comfortable
HEENT: Normocephalic
Cardiovascular: S1-S2
Respiratory: Wheeze (Expiratory)
GI: Soft and Non Distended
Neurology: Awake, Alert and No Motor Deficits
Skin: Warm
Labs/Micro/Reports
Lab Data
09/27/24 07:22
09/27/24 15:39
Microbiology
09/24/24 18:41 Nose MRSA Screen - Final
No Methicillin Resistant Staphylococcus aureus isolated.
[2024-09-29] MEDS: NOVOLOG FLEXPEN-MODERATE RESISTANCE 5 UNITS SC (13:44)
[2024-09-29 15:45] VITALS: BP 144/84
[2024-09-29 16:25] LABS: Glucose - Point of Care 246 mg/dl (70-99)
[2024-09-29] MEDS: NOVOLOG FLEXPEN-MODERATE RESISTANCE 3 UNITS SC (16:36)
[2024-09-29] MEDS: LIPITOR 40 MG PO (16:38)
[2024-09-29] MEDS: FLOMAX 0.8 MG PO (16:38)
== END 2024-09-29 17:53 | DRG 178 ==
LOC: 4 WEST ACU 13:54
PROVIDERS: Internal Medicine; Physician Assistant Medical; ADMITTING PHYSICIAN Hospitalist; ATTENDING PHYSICIAN Internal Medicine; CONSULT PHYSICIAN Internal Medicine Critical Care Medicine; EMERGENCY PHYSICIAN Student in an Organized Health Care Education/Training Program; FAMILY PHYSICIAN Student in an Organized Health Care Education/Training Program
DX: J69.0 Pneumonitis due to inhalation of food and vomit (principal); J44.1 Chronic obstructive pulmonary disease with (acute) exacerbation; Z68.43 Body mass index [BMI] 50.0-59.9, adult; J96.12 Chronic respiratory failure with hypercapnia; I25.10 Atherosclerotic heart disease of native coronary artery without angina pectoris; I10 Essential (primary) hypertension; E11.65 Type 2 diabetes mellitus with hyperglycemia; I48.0 Paroxysmal atrial fibrillation; F32.A Depression, unspecified; F41.9 Anxiety disorder, unspecified; F03.90 Unspecified dementia, unspecified severity, without behavioral disturbance, psychotic disturbance, mood disturbance, and anxiety; K21.9 Gastro-esophageal reflux disease without esophagitis; E78.00 Pure hypercholesterolemia, unspecified; D69.6 Thrombocytopenia, unspecified; D64.9 Anemia, unspecified; N40.0 Benign prostatic hyperplasia without lower urinary tract symptoms; E66.01 Morbid (severe) obesity due to excess calories; Z66 Do not resuscitate; Z79.01 Long term (current) use of anticoagulants; Z79.899 Other long term (current) drug therapy; Z86.73 Personal history of transient ischemic attack (TIA), and cerebral infarction without residual deficits; Z87.891 Personal history of nicotine dependence; Z79.4 Long term (current) use of insulin; Z79.84 Long term (current) use of oral hypoglycemic drugs; Z85.46 Personal history of malignant neoplasm of prostate
CPT/HCPCS: 71045; 71046; 74230; 80048; 82805; 82947; 82962; 83036; 83735; 83880; 84484; 85025; 85027; 87070; 92611; 93005; 94640; 94644; 94762; 96374; 99291